=== PATIENT | female | born 1975 | race Caucasian/White ===

== ENCOUNTER 2018-06-20 20:57 | Emergency (ER) | payer SELFPAY ==
[2018-06-20 21:09] VITALS: BP 137/90; PULSE 84; RESP 18; TEMP 37.3; O2SAT 97; BMI 36.9
--- NOTE | 2018-06-20 22:14 | ED.ABDPAIN ---
HPI - Abdominal Pain General Chief Complaint: Abdominal Pain Stated Complaint: sharp right side abdominal pain Time Seen by Provider: 06/20/18 21:35 Source: patient Mode of arrival: ambulatory Limitations: no limitations History of Present Illness HPI narrative: 43-year-old female nonsmoker presents with a chief complaint of right lower quadrant pain worsening over the course of the day. It started off rather mild and became quite severe as the day progressed. She has had nausea but denies any vomiting. She denies any fever or chills. Her pain is worse with motion and improves with rest. Patient denies the vaginal bleeding or discharge. She denies any radiation of the pain MD complaint: abdominal pain Onset (ago): hour(s) Pain Consistency: constant Location: RLQ Severity: moderate Quality: cramping and aching Radiation: none Migration to: no migration Relieving factors: rest Exacerbating factors: movement Associated symptoms: nausea Treatments prior to arrival: NSAIDs Related Data Home Medications Medication Instructions Recorded Confirmed zolpidem #0 06/18/17 Previous Rx's Medication Instructions Recorded codeine-guaifenesin 5 ml PO QHS #60 ml 12/15/17 amoxicillin-pot clavulanate 875 mg PO BID 10 Days #0 tab 12/16/17 [Augmentin] prednisone 2 tab PO QDAY 5 Days #0 tab 12/16/17 hydrocodone-acetaminophen 1 tab PO Q4-6H PRN #14 tab 06/21/18 Allergies Allergy/AdvReac Type Severity Reaction Status Date / Time No Known Allergies Allergy Uncoded 01/05/18 12:28 Review of Systems Review of Systems All systems reviewed & are unremarkable except as noted in HPI and below Constitutional Denies chills, Denies fever(s), Denies lethargy and Denies weakness Eyes Denies change in vision, Denies eye discharge, Denies irritation and Denies loss of vision ENT Ears, Nose, Mouth, and Throat: Denies change in voice, Denies neck pain and Denies sore throat Cardiovascular Denies chest pain, Denies irregular heart rhythm, Denies lightheadedness, Denies palpitations, Denies dyspnea, Denies dyspnea on exertion and Denies orthopnea Respiratory Denies cough, Denies dyspnea, Denies dyspnea on exertion and Denies wheezing Gastrointestinal Gastrointestinal: Reports abdominal pain, Denies change in bowel habits, Denies diarrhea, Denies nausea and Denies vomiting Genitourinary Denies hematuria, Denies flank pain, Denies urinary incontinence and Denies urinary urgency Musculoskeletal Denies neck pain Integumentary/Breasts Denies pruritus, Denies erythema, Denies rash and Denies wounds Neurologic Denies confusion, Denies loss of vision and Denies weakness Psychiatric Denies anxiety, Denies confusion, Denies depression, Denies homicidal ideation and Denies suicidal ideation Endocrine Denies palpitations Hematologic/Lymphatic Denies easy bruising Allergic/Immunologic Denies wheezing [facility] Social History Smoking Status: Never smoker Exam Narrative Exam Narrative: 43-year-old female obviously uncomfortable, clutching her right lower abdomen Initial Vital Signs Initial Vital Signs: Vital Signs Temperature 99.1 F 06/20/18 21:09 Pulse Rate 84 06/20/18 21:09 Respiratory Rate 18 06/20/18 21:09 Blood Pressure 137/90 06/20/18 21:09 Pulse Oximetry 97 06/20/18 21:09 Const General: cooperative, well developed and in distress Nutritional Appearance: well nourished Orientation: alert, awake, oriented x3 and not confused HENMT Head: normocephalic and atraumatic Ears: external ears normal and TM's normal bilaterally Nose: external nose normal and No nasal discharge Face and sinus: sinuses nontender, face symmetric, no sinus tenderness and No dry mucous membranes Mouth: oral mucosae normal and moist mucous membranes Teeth and gingiva: dentition normal Throat: tonsils normal and uvula midline Eyes General: appearance normal, both eyes and all related structures Eyelids: eyelids normal Conjunctivae: conjunctivae normal Sclera: sclerae normal Pupils: PERRL EOM: EOM intact bilaterally Resp Effort & Inspection: normal respiratory effort, able to speak in complete sentences, no respiratory distress and no use of accessory muscles Auscultation: clear to auscultation bilaterally, no rales, no rhonchi and no wheezes GI Inspection: non-distended Palpation: soft, no hepatosplenomegaly, No guarding, No pulsatile mass and tender (Chief right lower quadrant tenderness) Auscultation: normal bowel sounds Back/Spine/Pelvis Back: No CVA tenderness Cervical Spine: cervical ROM normal and No pain with cervical ROM Thoracic/Lumbar Spine: thoracic and lumbar spine normal to inspection Skin General: no rashes or lesions noted, No jaundice and No petechiae Extrem General: full ROM, no clubbing, cyanosis or edema, no pedal edema and no calf tenderness Course Orders Ordered: Discontinued Medications Hydrocodone Bitart/Acetaminophen (Vicodin Prepack) 1 bottle MISC SEEINSTR ONE Stop: 06/21/18 01:57 Last Admin: 06/21/18 02:08 Dose: 1 bottle Hydromorphone HCl (Dilaudid) 0.5 mg IV NOW ONE Stop: 06/20/18 22:14 Last Admin: 06/20/18 22:36 Dose: 0.5 mg Hydromorphone HCl (Dilaudid) 0.5 mg IV NOW ONE Stop: 06/21/18 00:46 Last Admin: 06/21/18 00:54 Dose: 0.5 mg Sodium Chloride (Normal Saline 0.9%) 1,000 mls @ 150 mls/hr IV CONT EPIFANIO Last Infusion: 06/21/18 02:15 Dose: 0 mls/hr Admin: 06/20/18 22:35 Dose: 150 mls/hr Ondansetron HCl (Zofran) 4 mg IV NOW ONE Stop: 06/20/18 22:14 Last Admin: 06/20/18 22:36 Dose: 4 mg Ondansetron HCl (Zofran) 4 mg IV NOW ONE Stop: 06/21/18 00:59 Last Admin: 06/21/18 01:05 Dose: 4 mg Ondansetron HCl (Zofran Odt Prepack) 1 bottle MISC SEEINSTR ONE Stop: 06/21/18 01:57 Last Admin: 06/21/18 02:08 Dose: 1 bottle Reevaluation(s) Reevaluation #1: The patient is much more comfortable after above-stated medications Vital Signs - 8 hr 06/20/18 21:09 Temperature 99.1 F Pulse Rate 84 Respiratory Rate 18 Blood Pressure 137/90 Pulse Oximetry 97 MDM - Abdominal Pain Differential Diagnosis Differential diagnosis: Likely abdominal pain, acute appendicitis, calculus of kidney, constipation, diverticulitis, pancreatitis and small bowel obstruction Medical Records Attestation: I reviewed the patient's medical records. Lab Data Attestation: I reviewed the patient's lab results. Result diagrams: 06/20/18 22:41 06/20/18 22:41 Lab Results 06/20/18 06/20/18 Range/Units 22:41 22:41 WBC 9.3 (4.5-11.0) X10^3/uL RBC 4.52 (4.0-5.2) X10^6/uL Hgb 13.8 (12.0-16.0) g/dL Hct 39.9 (36-46) % MCV 88.3 (80-100) fL MCH 30.5 (26-34) PG MCHC 34.5 (30-36) % RDW 13.0 (11.6-14.8) % Plt Count 238 (150-400) X10^3/uL Neut % (Auto) 61.9 (50-75) % Lymph % (Auto) 26.5 (25-40) % [place] % (Auto) 7.3 (3-14) % Eos % (Auto) 3.8 (2-4) % Baso % (Auto) 0.5 (0-2) % Neut # (Auto) 5800 (3309-7328) /uL Sodium 140 (137-145) mmol/L Potassium 3.8 (3.4-5.1) mmol/L Chloride 104 (98-107) mmol/L Carbon Dioxide 24 (22-32) mmol/L BUN 25 H (7-17) mg/dL Creatinine 0.90 (0.52-1.04) mg/dL Estimated GFR > 60.0 (>60) mL/min BUN/Creatinine Ratio 27.8 H (6-22) Glucose 101 H (70-100) mg/dL Calcium 9.1 (8.4-10.2) mg/dL Total Bilirubin 0.5 (0.2-1.3) mg/dL AST 17 (14-36) IU/L ALT 32 (9-52) IU/L Alkaline Phosphatase 68 (38-126) U/L Total Protein 7.2 (6.3-8.2) g/dL Albumin 4.2 (3.5-5.0) g/dL Globulin 3.0 (1.7-4.1) g/dL Albumin/Globulin Ratio 1.4 (1.0-2.8) Lipase 61 (23-300) U/L Point of care testing: Point of Care Testing Test Results Negative Urine Dip Bedside Urine Glucose Negative Bedside Urine Bilirubin - Negative Bedside Urine Ketone - Negative Urine Specific [place] 1.025 Bedside Urine Occult Blood - Negative Bedside Urine pH 6.0 Bedside Urine Protein - Negative Bedside Urine Urobilinogen +/- 1mg Bedside Urine Nitrite - Negative Bedside Urine Leukocytes - Negative Esterase Imaging Data CT scan - abdomen: Radiologist's impression: [address] [address] [address] Scan Report Signed Patient: Amparo Monreal EMR#: [id number] : 1975Acct:[id number] Age/Sex: 43 / FDate of Service: 06/20/18 Loc: ED Accession Number: [id number] Procedure: CT abdomen pelvis w con Ordering Provider: Harley Marcelino D.O. PROCEDURE: CT ABDOMEN PELVIS W CON INDICATIONS: severe right lower quadrant pain TECHNIQUE: After the administration of intravenous contrast, 5 mm thick sections acquired from the diaphragm to the symphysis. 5 mm coronal and sagittal reformats were acquired. For radiation dose reduction, the following was used: automated exposure control, adjustment of mA and/or kV according to patient size. COMPARISON: [facility], CT, ABDOMEN/PELVIS WITH CONTRAST, 06/19/2017, 2:06. FINDINGS: Image quality: Excellent. ABDOMEN: Lung bases: Lung bases are clear. Heart size is normal. Solid organs: Diffuse hepatic fatty infiltration. Liver is normal in size and enhancement. Gallbladder is surgically absent. Biliary system is non dilated. Pancreas enhances normally. Spleen is at the upper limits of normal in size. No adrenal nodules. Kidneys demonstrate normal size and enhancement, without hydronephrosis. Peritoneum and bowel: Bowel loops demonstrate normal wall thickness and caliber. The appendix is not identified. No secondary signs for acute appendicitis. No free fluid or air. Nodes and vessels: No retroperitoneal or mesenteric adenopathy by size criteria. Aorta and inferior vena cava are normal in size. Miscellaneous: No ventral hernias. PELVIS: Genitourinary: Bladder wall thickness is normal. Uterus is normal. No adnexal mass. No pathological free fluid in pelvis. Miscellaneous: No inguinal hernias or adenopathy. Bones: No suspicious bony lesions. No vertebral body compression fractures. IMPRESSION: 1. No CT findings for severe right lower quadrant pain identified on CT. The appendix is not visualized. No secondary signs for acute appendicitis. 2. Hepatic steatosis. No significant discrepancy with the shift supervisor melting radiology preliminary report. Dictated by: Colette Molina M.D. on 06/21/2018 at 7:29 Approved by: Colette Molina M.D. on 06/21/2018 at 7:34 US - abdomen: Radiologist's impression: [address] [address] Ultrasound Report Signed Patient: Amparo Monreal EMR#: [id number] : 1975Acct:[id number] Age/Sex: 43 / FDate of Service: 06/21/18 Loc: ED Accession Number: [id number] Procedure: US pelvic complete Ordering Provider: Harley Marcelino D.O. PROCEDURE: US PELVIC COMPLETE INDICATIONS: PAIN TECHNIQUE: Real-time scanning was performed of the pelvic organs, with image documentation. Additional endovaginal scanning was necessary due to incomplete visualization of the adnexal and endometrial structures by transabdominal scanning. COMPARISON: None. FINDINGS: Transabdominal scanning: Limited scanning through the kidneys shows no hydronephrosis. No pathologic free abdominal or pelvic fluid. Endovaginal scanning: Uterus: Uterus is normal in size at 7.9 x 3.9 x 3.5 cm. The endometrium measures 5.4 mm in combined thickness. Ovaries: Right adnexa measures 2.1 x 1.2 x 2.0 cm. The left adnexa measures 2.1 x 1.7 x 1.5 cm adnexa are sonographically normal. IMPRESSION: Uterus and adnexa are sonographically normal. Dictated by: Merissa Nguyen MD, PhD on 06/21/2018 at 9:49 Approved by: Merissa Nguyen MD, PhD on 06/21/2018 at 9:55 MDM Narrative Medical decision making narrative: Appendicitis considered but thought less likely given lack of fever, white count with she and no CT findings. ovarian torsion or abscess considered but thought less likely in the setting of normal images Kidney stone or renal colic considered but thought less likely given lack of findings on imaging Discharge Plan Departure Patient Disposition: Home Clinical Impression: Abdominal pain, acute, right lower quadrant Discharge Date/Time: 06/21/18 02:15 Interventions: ED Discharge Assessment Last Done: 06/21/18 02:13 Instructions: DI for Pelvic Pain Activity Restrictions/Additional Instructions: *You have been diagnosed with [ right lower quadrant pain ] *What to do: *Take medications as directed *Follow up with your primary care provider in 2-3 days, call for an appointment. Let them know you were seen in the Emergency Department and that we ask that you be seen in follow up * CT scan was negative for appendicitis, kidney stone, or other emergent/surgical problem *Return to ER if you should have any new, worsening or concerning symptoms Prescriptions: New hydrocodone-acetaminophen 5-325 mg tablet 1 tab PO Q4-6H PRN (Reason: pain) Qty: 14 RF: 0 No Action zolpidem 5 MG tablet Qty: 0 RF: 0 codeine-guaifenesin 100 MG/10 MG liquid 5 ml PO QHS Qty: 60 RF: 0 prednisone 20 MG tablet 2 tab PO QDAY 5 Days Qty: 0 RF: 0 amoxicillin-pot clavulanate [Augmentin] 875 MG/125 MG tablet 875 mg PO BID 10 Days Qty: 0 RF: 0 Referrals: Carmella Clark PA-C [Primary Care Provider] -
[2018-06-20] MEDS: SODIUM CHLORIDE 0.9% 1,000 ML 150 ML IV (22:35)
[2018-06-20] MEDS: ONDANSETRON 4 MG/2 ML INJ IV (22:36)
[2018-06-20] MEDS: HYDROMORPHONE 1 MG INJ 0.5 MG IV (22:36)
[2018-06-20 22:50] LABS: Add Manual Diff / Slide Review NO; Basophils Percent Auto 0.5 % (0-2); Eosinophils Percent Auto 3.8 % (2-4); Hematocrit 39.9 % (36-46); Hemoglobin 13.8 g/dL (12.0-16.0); Lymphocytes Percent Auto 26.5 % (25-40); Mean Corpuscular HGB Conc 34.5 % (30-36); Mean Corpuscular Hemoglobin 30.5 PG (26-34); Mean Corpuscular Volume 88.3 fL (80-100); Monocytes Percent Auto 7.3 % (3-14); Neutrophils Absolute Auto 5800 /uL (3000-5900); Neutrophils Percent Auto 61.9 % (50-75); Platelet Count 238 X10^3/uL (150-400); Red Blood Cell Count 4.52 X10^6/uL (4.0-5.2); White Blood Cell Count 9.3 X10^3/uL (4.5-11.0)
[2018-06-20 23:02] VITALS: BP 126/56; PULSE 82; RESP 15; O2SAT 96
[2018-06-20 23:02] LABS: Alanine Aminotransferase 32 IU/L (9-52); Albumin 4.2 g/dL (3.5-5.0); Albumin Globulin Ratio 1.4 (1.0-2.8); Alkaline Phosphatase 68 U/L (38-126); Aspartate Aminotransferase 17 IU/L (14-36); BUN Creatinine Ratio 27.8 (6-22); Bilirubin Total 0.5 mg/dL (0.2-1.3); Blood Urea Nitrogen 25 mg/dL (7-17); Calcium 9.1 mg/dL (8.4-10.2); Carbon Dioxide 24 mmol/L (22-32); Chloride 104 mmol/L (98-107); Estimated Glomerular Filt Rate > 60.0 mL/min (>60); Glucose 101 mg/dL (70-100); HEMOLYSIS < 15 (0-50); Lipase 61 U/L (23-300); Potassium 3.8 mmol/L (3.4-5.1); Sodium 140 mmol/L (137-145); Total Protein 7.2 g/dL (6.3-8.2)
--- NOTE | 2018-06-20 23:02 | DI.CT.S_ITS ---
PROCEDURE: CT ABDOMEN PELVIS W CON INDICATIONS: severe right lower quadrant pain TECHNIQUE: After the administration of intravenous contrast, 5 mm thick sections acquired from the diaphragm to the symphysis. 5 mm coronal and sagittal reformats were acquired. For radiation dose reduction, the following was used: automated exposure control, adjustment of mA and/or kV according to patient size. COMPARISON: [facility], CT, ABDOMEN/PELVIS WITH CONTRAST, 06/19/2017, 2:06. FINDINGS: Image quality: Excellent. ABDOMEN: Lung bases: Lung bases are clear. Heart size is normal. Solid organs: Diffuse hepatic fatty infiltration. Liver is normal in size and enhancement. Gallbladder is surgically absent. Biliary system is non dilated. Pancreas enhances normally. Spleen is at the upper limits of normal in size. No adrenal nodules. Kidneys demonstrate normal size and enhancement, without hydronephrosis. Peritoneum and bowel: Bowel loops demonstrate normal wall thickness and caliber. The appendix is not identified. No secondary signs for acute appendicitis. No free fluid or air. Nodes and vessels: No retroperitoneal or mesenteric adenopathy by size criteria. Aorta and inferior vena cava are normal in size. Miscellaneous: No ventral hernias. PELVIS: Genitourinary: Bladder wall thickness is normal. Uterus is normal. No adnexal mass. No pathological free fluid in pelvis. Miscellaneous: No inguinal hernias or adenopathy. Bones: No suspicious bony lesions. No vertebral body compression fractures. IMPRESSION: 1. No CT findings for severe right lower quadrant pain identified on CT. The appendix is not visualized. No secondary signs for acute appendicitis. 2. Hepatic steatosis. No significant discrepancy with the streaming media specialist radiology preliminary report. Dictated by: Colette Molina M.D. on 06/21/2018 at 7:29 Approved by: Colette Molina M.D. on 06/21/2018 at 7:34
[2018-06-21 00:26] VITALS: BP 110/61; PULSE 77; RESP 15; O2SAT 93
--- NOTE | 2018-06-21 00:44 | DI.US.S_ITS ---
PROCEDURE: US PELVIC COMPLETE INDICATIONS: PAIN TECHNIQUE: Real-time scanning was performed of the pelvic organs, with image documentation. Additional endovaginal scanning was necessary due to incomplete visualization of the adnexal and endometrial structures by transabdominal scanning. COMPARISON: None. FINDINGS: Transabdominal scanning: Limited scanning through the kidneys shows no hydronephrosis. No pathologic free abdominal or pelvic fluid. Endovaginal scanning: Uterus: Uterus is normal in size at 7.9 x 3.9 x 3.5 cm. The endometrium measures 5.4 mm in combined thickness. Ovaries: Right adnexa measures 2.1 x 1.2 x 2.0 cm. The left adnexa measures 2.1 x 1.7 x 1.5 cm adnexa are sonographically normal. IMPRESSION: Uterus and adnexa are sonographically normal. Dictated by: Merissa Nguyen MD, PhD on 06/21/2018 at 9:49 Approved by: Merissa Nguyen MD, PhD on 06/21/2018 at 9:55
[2018-06-21] MEDS: HYDROMORPHONE 1 MG INJ 0.5 MG IV (00:54)
[2018-06-21] MEDS: ONDANSETRON 4 MG/2 ML INJ IV (01:05)
[2018-06-21 01:24] VITALS: BP 112/70; PULSE 81; RESP 19; O2SAT 94
[2018-06-21] MEDS: HYDROCODONE/ACET 5/325 PREPACK 1 BOTTLE MISC (02:08)
[2018-06-21] MEDS: ONDANSETRON 4 MG ODT PREPACK 1 BOTTLE MISC (02:08)
[2018-06-21 02:13] VITALS: BP 110/72; PULSE 85; RESP 18; O2SAT 96
--- NOTE | 2018-06-22 03:08 | ED_ITS ---
HPI - Abdominal Pain General Chief Complaint: Abdominal Pain Stated Complaint: sharp right side abdominal pain Time Seen by Provider: 06/20/18 21:35 Source: patient Mode of arrival: ambulatory Limitations: no limitations History of Present Illness HPI narrative: 43-year-old female nonsmoker presents with a chief complaint of right lower quadrant pain worsening over the course of the day. It started off rather mild and became quite severe as the day progressed. She has had nausea but denies any vomiting. She denies any fever or chills. Her pain is worse with motion and improves with rest. Patient denies the vaginal bleeding or discharge. She denies any radiation of the pain MD complaint: abdominal pain Onset (ago): hour(s) Pain Consistency: constant Location: RLQ Severity: moderate Quality: cramping and aching Radiation: none Migration to: no migration Relieving factors: rest Exacerbating factors: movement Associated symptoms: nausea Treatments prior to arrival: NSAIDs Related Data Home Medications Medication Instructions Recorded Confirmed zolpidem #0 06/18/17 Previous Rx's Medication Instructions Recorded codeine-guaifenesin 5 ml PO QHS #60 ml 12/15/17 amoxicillin-pot clavulanate 875 mg PO BID 10 Days #0 tab 12/16/17 [Augmentin] prednisone 2 tab PO QDAY 5 Days #0 tab 12/16/17 hydrocodone-acetaminophen 1 tab PO Q4-6H PRN #14 tab 06/21/18 Allergies Allergy/AdvReac Type Severity Reaction Status Date / Time No Known Allergies Allergy Uncoded 01/05/18 12:28 Review of Systems Review of Systems All systems reviewed & are unremarkable except as noted in HPI and below Constitutional Denies chills, Denies fever(s), Denies lethargy and Denies weakness Eyes Denies change in vision, Denies eye discharge, Denies irritation and Denies loss of vision ENT Ears, Nose, Mouth, and Throat: Denies change in voice, Denies neck pain and Denies sore throat Cardiovascular Denies chest pain, Denies irregular heart rhythm, Denies lightheadedness, Denies palpitations, Denies dyspnea, Denies dyspnea on exertion and Denies orthopnea Respiratory Denies cough, Denies dyspnea, Denies dyspnea on exertion and Denies wheezing Gastrointestinal Gastrointestinal: Reports abdominal pain, Denies change in bowel habits, Denies diarrhea, Denies nausea and Denies vomiting Genitourinary Denies hematuria, Denies flank pain, Denies urinary incontinence and Denies urinary urgency Musculoskeletal Denies neck pain Integumentary/Breasts Denies pruritus, Denies erythema, Denies rash and Denies wounds Neurologic Denies confusion, Denies loss of vision and Denies weakness Psychiatric Denies anxiety, Denies confusion, Denies depression, Denies homicidal ideation and Denies suicidal ideation Endocrine Denies palpitations Hematologic/Lymphatic Denies easy bruising Allergic/Immunologic Denies wheezing [facility] Social History Smoking Status: Never smoker Exam Narrative Exam Narrative: 43-year-old female obviously uncomfortable, clutching her right lower abdomen Initial Vital Signs Initial Vital Signs: Vital Signs Temperature 99.1 F 06/20/18 21:09 Pulse Rate 84 06/20/18 21:09 Respiratory Rate 18 06/20/18 21:09 Blood Pressure 137/90 06/20/18 21:09 Pulse Oximetry 97 06/20/18 21:09 Const General: cooperative, well developed and in distress Nutritional Appearance: well nourished Orientation: alert, awake, oriented x3 and not confused HENMT Head: normocephalic and atraumatic Ears: external ears normal and TM's normal bilaterally Nose: external nose normal and No nasal discharge Face and sinus: sinuses nontender, face symmetric, no sinus tenderness and No dry mucous membranes Mouth: oral mucosae normal and moist mucous membranes Teeth and gingiva: dentition normal Throat: tonsils normal and uvula midline Eyes General: appearance normal, both eyes and all related structures Eyelids: eyelids normal Conjunctivae: conjunctivae normal Sclera: sclerae normal Pupils: PERRL EOM: EOM intact bilaterally Resp Effort & Inspection: normal respiratory effort, able to speak in complete sentences, no respiratory distress and no use of accessory muscles Auscultation: clear to auscultation bilaterally, no rales, no rhonchi and no wheezes GI Inspection: non-distended Palpation: soft, no hepatosplenomegaly, No guarding, No pulsatile mass and tender (Chief right lower quadrant tenderness) Auscultation: normal bowel sounds Back/Spine/Pelvis Back: No CVA tenderness Cervical Spine: cervical ROM normal and No pain with cervical ROM Thoracic/Lumbar Spine: thoracic and lumbar spine normal to inspection Skin General: no rashes or lesions noted, No jaundice and No petechiae Extrem General: full ROM, no clubbing, cyanosis or edema, no pedal edema and no calf tenderness Course Orders Ordered: Discontinued Medications Hydrocodone Bitart/Acetaminophen (Vicodin Prepack) 1 bottle MISC SEEINSTR ONE Stop: 06/21/18 01:57 Last Admin: 06/21/18 02:08 Dose: 1 bottle Hydromorphone HCl (Dilaudid) 0.5 mg IV NOW ONE Stop: 06/20/18 22:14 Last Admin: 06/20/18 22:36 Dose: 0.5 mg Hydromorphone HCl (Dilaudid) 0.5 mg IV NOW ONE Stop: 06/21/18 00:46 Last Admin: 06/21/18 00:54 Dose: 0.5 mg Sodium Chloride (Normal Saline 0.9%) 1,000 mls @ 150 mls/hr IV CONT EPIFANIO Last Infusion: 06/21/18 02:15 Dose: 0 mls/hr Admin: 06/20/18 22:35 Dose: 150 mls/hr Ondansetron HCl (Zofran) 4 mg IV NOW ONE Stop: 06/20/18 22:14 Last Admin: 06/20/18 22:36 Dose: 4 mg Ondansetron HCl (Zofran) 4 mg IV NOW ONE Stop: 06/21/18 00:59 Last Admin: 06/21/18 01:05 Dose: 4 mg Ondansetron HCl (Zofran Odt Prepack) 1 bottle MISC SEEINSTR ONE Stop: 06/21/18 01:57 Last Admin: 06/21/18 02:08 Dose: 1 bottle Reevaluation(s) Reevaluation #1: The patient is much more comfortable after above-stated medications Vital Signs - 8 hr 06/20/18 21:09 Temperature 99.1 F Pulse Rate 84 Respiratory Rate 18 Blood Pressure 137/90 Pulse Oximetry 97 MDM - Abdominal Pain Differential Diagnosis Differential diagnosis: Likely abdominal pain, acute appendicitis, calculus of kidney, constipation, diverticulitis, pancreatitis and small bowel obstruction Medical Records Attestation: I reviewed the patient's medical records. Lab Data Attestation: I reviewed the patient's lab results. Result diagrams: 06/20/18 22:41 06/20/18 22:41 Lab Results 06/20/18 06/20/18 Range/Units 22:41 22:41 WBC 9.3 (4.5-11.0) X10^3/uL RBC 4.52 (4.0-5.2) X10^6/uL Hgb 13.8 (12.0-16.0) g/dL Hct 39.9 (36-46) % MCV 88.3 (80-100) fL MCH 30.5 (26-34) PG MCHC 34.5 (30-36) % RDW 13.0 (11.6-14.8) % Plt Count 238 (150-400) X10^3/uL Neut % (Auto) 61.9 (50-75) % Lymph % (Auto) 26.5 (25-40) % K[place]haw % (Auto) 7.3 (3-14) % Eos % (Auto) 3.8 (2-4) % Baso % (Auto) 0.5 (0-2) % Neut # (Auto) 5800 (8011-4694) /uL Sodium 140 (137-145) mmol/L Potassium 3.8 (3.4-5.1) mmol/L Chloride 104 (98-107) mmol/L Carbon Dioxide 24 (22-32) mmol/L BUN 25 H (7-17) mg/dL Creatinine 0.90 (0.52-1.04) mg/dL Estimated GFR > 60.0 (>60) mL/min BUN/Creatinine Ratio 27.8 H (6-22) Glucose 101 H (70-100) mg/dL Calcium 9.1 (8.4-10.2) mg/dL Total Bilirubin 0.5 (0.2-1.3) mg/dL AST 17 (14-36) IU/L ALT 32 (9-52) IU/L Alkaline Phosphatase 68 (38-126) U/L Total Protein 7.2 (6.3-8.2) g/dL Albumin 4.2 (3.5-5.0) g/dL Globulin 3.0 (1.7-4.1) g/dL Albumin/Globulin Ratio 1.4 (1.0-2.8) Lipase 61 (23-300) U/L Point of care testing: Point of Care Testing Test Results Negative Urine Dip Bedside Urine Glucose Negative Bedside Urine Bilirubin - Negative Bedside Urine Ketone - Negative Urine Specific Elysian 1.025 Bedside Urine Occult Blood - Negative Bedside Urine pH 6.0 Bedside Urine Protein - Negative Bedside Urine Urobilinogen +/- 1mg Bedside Urine Nitrite - Negative Bedside Urine Leukocytes - Negative Esterase Imaging Data CT scan - abdomen: Radiologist's impression: [address] [address] [address] Scan Report Signed Patient: Amparo Monreal EMR#: [id number] : 1975Acct:[id number] Age/Sex: 43 / FDate of Service: 06/20/18 Loc: ED Accession Number: [id number] Procedure: CT abdomen pelvis w con Ordering Provider: Harley Marcelino D.O. PROCEDURE: CT ABDOMEN PELVIS W CON INDICATIONS: severe right lower quadrant pain TECHNIQUE: After the administration of intravenous contrast, 5 mm thick sections acquired from the diaphragm to the symphysis. 5 mm coronal and sagittal reformats were acquired. For radiation dose reduction, the following was used: automated exposure control, adjustment of mA and/or kV according to patient size. COMPARISON: [facility], CT, ABDOMEN/PELVIS WITH CONTRAST, 06/19/2017, 2:06. FINDINGS: Image quality: Excellent. ABDOMEN: Lung bases: Lung bases are clear. Heart size is normal. Solid organs: Diffuse hepatic fatty infiltration. Liver is normal in size and enhancement. Gallbladder is surgically absent. Biliary system is non dilated. Pancreas enhances normally. Spleen is at the upper limits of normal in size. No adrenal nodules. Kidneys demonstrate normal size and enhancement, without hydronephrosis. Peritoneum and bowel: Bowel loops demonstrate normal wall thickness and caliber. The appendix is not identified. No secondary signs for acute appendicitis. No free fluid or air. Nodes and vessels: No retroperitoneal or mesenteric adenopathy by size criteria. Aorta and inferior vena cava are normal in size. Miscellaneous: No ventral hernias. PELVIS: Genitourinary: Bladder wall thickness is normal. Uterus is normal. No adnexal mass. No pathological free fluid in pelvis. Miscellaneous: No inguinal hernias or adenopathy. Bones: No suspicious bony lesions. No vertebral body compression fractures. IMPRESSION: 1. No CT findings for severe right lower quadrant pain identified on CT. The appendix is not visualized. No secondary signs for acute appendicitis. 2. Hepatic steatosis. No significant discrepancy with the date night sitter radiology preliminary report. Dictated by: Colette Molina M.D. on 06/21/2018 at 7:29 Approved by: Colette Molina M.D. on 06/21/2018 at 7:34 US - abdomen: Radiologist's impression: [address] [address] Ultrasound Report Signed Patient: Amparo Monreal EMR#: [id number] : 1975Acct:[id number] Age/Sex: 43 / FDate of Service: 06/21/18 Loc: ED Accession Number: [id number] Procedure: US pelvic complete Ordering Provider: Harley Marcelino D.O. PROCEDURE: US PELVIC COMPLETE INDICATIONS: PAIN TECHNIQUE: Real-time scanning was performed of the pelvic organs, with image documentation. Additional endovaginal scanning was necessary due to incomplete visualization of the adnexal and endometrial structures by transabdominal scanning. COMPARISON: None. FINDINGS: Transabdominal scanning: Limited scanning through the kidneys shows no hydronephrosis. No pathologic free abdominal or pelvic fluid. Endovaginal scanning: Uterus: Uterus is normal in size at 7.9 x 3.9 x 3.5 cm. The endometrium measures 5.4 mm in combined thickness. Ovaries: Right adnexa measures 2.1 x 1.2 x 2.0 cm. The left adnexa measures 2.1 x 1.7 x 1.5 cm adnexa are sonographically normal. IMPRESSION: Uterus and adnexa are sonographically normal. Dictated by: Merissa Nguyen MD, PhD on 06/21/2018 at 9:49 Approved by: Merissa Nguyen MD, PhD on 06/21/2018 at 9:55 MDM Narrative Medical decision making narrative: Appendicitis considered but thought less likely given lack of fever, white count with she and no CT findings. ovarian torsion or abscess considered but thought less likely in the setting of normal images Kidney stone or renal colic considered but thought less likely given lack of findings on imaging Discharge Plan Departure Patient Disposition: Home Clinical Impression: Abdominal pain, acute, right lower quadrant Discharge Date/Time: 06/21/18 02:15 Interventions: ED Discharge Assessment Last Done: 06/21/18 02:13 Instructions: DI for Pelvic Pain Activity Restrictions/Additional Instructions: *You have been diagnosed with [ right lower quadrant pain ] *What to do: *Take medications as directed *Follow up with your primary care provider in 2-3 days, call for an appointment. Let them know you were seen in the Emergency Department and that we ask that you be seen in follow up * CT scan was negative for appendicitis, kidney stone, or other emergent/ surgical problem *Return to ER if you should have any new, worsening or concerning symptoms Prescriptions: New hydrocodone-acetaminophen 5-325 mg tablet 1 tab PO Q4-6H PRN (Reason: pain) Qty: 14 RF: 0 No Action zolpidem 5 MG tablet Qty: 0 RF: 0 codeine-guaifenesin 100 MG/10 MG liquid 5 ml PO QHS Qty: 60 RF: 0 prednisone 20 MG tablet 2 tab PO QDAY 5 Days Qty: 0 RF: 0 amoxicillin-pot clavulanate [Augmentin] 875 MG/125 MG tablet 875 mg PO BID 10 Days Qty: 0 RF: 0 Referrals: Carmella Clark PA-C [Primary Care Provider] -
== END 2018-06-21 02:15 | disposition home or self-care (01) ==
PROVIDERS: Emergency Provider Emergency Medicine; Family Provider Physician Assistant; PCP Physician Assistant
DX: R10.31 Right lower quadrant pain (principal)
CPT/HCPCS: 36591; 74177; 76830; 76856; 80053; 81003; 81025; 83690; 85025; 96361; 96374; 96375; 96376; 99283; 99285; J1170; J2405; Q9967

== ENCOUNTER → 2018-10-02 11:38 | Outpatient (CLI) | payer OTHER, SELFPAY ==
[2018-10-02 12:08] LABS: Strep Grp A by PCR Rapid Negative
== END ==
PROVIDERS: Family Provider Physician Assistant; PCP Physician Assistant; Visit Provider Physician Assistant
DX: J02.9 Acute pharyngitis, unspecified (principal)
CPT/HCPCS: 87070; 87077; 87147; 87651

== ENCOUNTER → 2018-10-20 08:57 | Outpatient (CLI) | payer OTHER, SELFPAY ==
[2018-10-20 10:32] LABS: Prolactin 4.9 ng/mL (3.0-18.6)
[2018-10-20 10:40] LABS: Pregnancy Test Serum,Qual Negative (Negative)
[2018-10-20 10:46] LABS: TSH w/ Reflex to FT4 1.21 uIU/mL (0.47-4.68)
== END ==
PROVIDERS: Family Provider Physician Assistant; PCP Physician Assistant; Visit Provider Specialist
DX: N91.2 Amenorrhea, unspecified (principal)
CPT/HCPCS: 36415; 83001; 84146; 84443; 84703

== ENCOUNTER → 2019-01-03 08:22 | Outpatient (CLI) | payer OTHER, SELFPAY ==
--- NOTE | 2019-01-03 08:24 | DI.RAD.S_ITS ---
PROCEDURE: XR WRIST RT MIN 3V INDICATIONS: right wrist pain TECHNIQUE: 4 views of the wrist were acquired. COMPARISON: [facility], CR, XR HAND RT MIN 3V, 01/03/2019, 8:27. FINDINGS: Bones: No fractures or dislocations. No suspicious bony lesions. Scaphoid view: No trauma. Soft tissues: No suspicious soft tissue calcifications. IMPRESSION: Source of pain is not seen. Dictated by: Daniel Torre M.D. on 01/03/2019 at 8:49 Approved by: Daniel Torre M.D. on 01/03/2019 at 8:50
--- NOTE | 2019-01-03 08:24 | DI.RAD.S_ITS ---
PROCEDURE: XR HAND RT MIN 3V INDICATIONS: right hand pain TECHNIQUE: 3 views of the hand(s) acquired. COMPARISON: [facility], HAND 3V LEFT, 12/02/2017, 15:57. [facility], HAND 3V RIGHT, 05/16/2014, 14:33. FINDINGS: Bones: No fractures or dislocations. Carpal bones are normally aligned. No suspicious bony lesions. Soft tissues: No suspicious soft tissue calcifications. IMPRESSION: Source of pain is not found. Dictated by: Daniel Torre M.D. on 01/03/2019 at 8:42 Approved by: Daniel Torre M.D. on 01/03/2019 at 8:49
== END ==
PROVIDERS: Family Provider Physician Assistant; PCP Physician Assistant; Visit Provider Physician Assistant
DX: M25.531 Pain in right wrist (principal); M79.641 Pain in right hand
CPT/HCPCS: 73110; 73130

== ENCOUNTER → 2020-10-03 09:47 | Outpatient (CLI) | payer BC, SELFPAY ==
[2020-10-03 10:27] LABS: COVID19 -Nasal RAPID Negative (Negative)
== END ==
PROVIDERS: Family Provider Physician Assistant; PCP Family Medicine; Visit Provider Nurse Practitioner Family
DX: Z20.822 Contact with and (suspected) exposure to COVID-19 (principal)
CPT/HCPCS: 87635

== ENCOUNTER → 2020-10-03 10:10 | Outpatient (CLI) | payer BC, SELFPAY ==
--- NOTE | 2020-10-03 10:11 | DI.RAD.S_ITS ---
PROCEDURE: XR CHEST 2V INDICATIONS: productive cough, wheezing, asthma TECHNIQUE: 2 views of the chest were acquired. COMPARISON: None. FINDINGS: Surgical changes and devices: None. Lungs and pleura: Lungs are clear. No pleural effusions or pneumothorax. Mediastinum: Mediastinal contours are normal. Heart size is normal. Bones and chest wall: No suspicious bony abnormalities. Soft tissues appear unremarkable. IMPRESSION: No acute cardiopulmonary abnormality. Dictated by: Kian Shaffer M.D. on 10/03/2020 at 10:19 Approved by: Kian Shaffer M.D. on 10/03/2020 at 10:21
== END ==
PROVIDERS: Family Provider Physician Assistant; PCP Family Medicine; Referring Provider Nurse Practitioner Family; Visit Provider Nurse Practitioner Family
DX: J18.9 Pneumonia, unspecified organism (principal); R05 Cough; J45.909 Unspecified asthma, uncomplicated; Z20.822 Contact with and (suspected) exposure to COVID-19
CPT/HCPCS: 71046; 87635

== ENCOUNTER → 2021-04-01 16:16 | Outpatient (CLI) | payer OTHER, SELFPAY ==
--- NOTE | 2021-04-01 16:17 | DI.RAD.S_ITS ---
PROCEDURE: XR CHEST 2V INDICATIONS: asthma; frequent coughs TECHNIQUE: 2 views of the chest were acquired. COMPARISON: [facility], , XR CHEST 2V, 10/03/2020, 10:12. FINDINGS: Surgical changes and devices: None. Lungs and pleura: Lungs are clear. No pleural effusions or pneumothorax. Mediastinum: Mediastinal contours are normal. Heart size is normal. Bones and chest wall: No suspicious bony abnormalities. Soft tissues appear unremarkable. IMPRESSION: No acute cardiopulmonary disease. Dictated by: Viviana Pickering M.D. on 04/01/2021 at 16:57 Approved by: Viviana Pickering M.D. on 04/01/2021 at 16:58
[2021-04-01 18:19] LABS: Alanine Aminotransferase 30 IU/L (<35); Albumin 4.3 g/dL (3.5-5.0); Albumin Globulin Ratio 1.3 (1.0-2.8); Alkaline Phosphatase 74 U/L (38-126); Aspartate Aminotransferase 24 IU/L (14-36); BUN Creatinine Ratio 17.8 (6-22); Bilirubin Total 0.5 mg/dL (0.2-1.3); Blood Urea Nitrogen 13 mg/dL (7-17); Calcium 9.4 mg/dL (8.4-10.2); Carbon Dioxide 26 mmol/L (22-32); Chloride 105 mmol/L (98-107); Estimated Glomerular Filt Rate > 60.0 mL/min (>60); Globulin 3.2 g/dL (1.7-4.1); Glucose 95 mg/dL (70-100); HEMOLYSIS 17 (0-50); Lipase 53 U/L (23-300); Potassium 4.3 mmol/L (3.4-5.1); Sodium 138 mmol/L (137-145); Total Protein 7.5 g/dL (6.3-8.2)
[2021-04-01 18:48] LABS: Add Manual Diff / Slide Review NO; Basophils Absolute Auto 0 /uL (0-100); Basophils Percent Auto 0.4 % (0-2); Eosinophils Absolute Auto 400 /uL (0-450); Eosinophils Percent Auto 4.5 % (2-4); Hematocrit 41.6 % (36-46); Lymphocytes Absolute Auto 2000 /uL (1100-4500); Lymphocytes Percent Auto 20.7 % (25-40); Mean Corpuscular HGB Conc 33.5 % (30-36); Mean Corpuscular Hemoglobin 30.7 PG (26-34); Mean Corpuscular Volume 91.6 fL (80-100); Monocytes Absolute Auto 700 /uL (0-900); Neutrophils Absolute Auto 6700 /uL (1500-7000); Neutrophils Percent Auto 67.4 % (50-75); Platelet Count 257 X10^3/uL (150-400); Red Blood Cell Count 4.55 X10^6/uL (4.0-5.2); Red Cell Distribution Width 13.5 % (11.6-14.8); White Blood Cell Count 9.9 X10^3/uL (4.5-11.0)
[2021-04-01 18:49] LABS: INR 1.1 (0.9-1.3); Prothrombin Time 12.2 SECONDS (10.1-12.7)
== END ==
PROVIDERS: Family Provider Physician Assistant; PCP Family Medicine; Referring Provider Registered Nurse; Visit Provider Registered Nurse
DX: J45.909 Unspecified asthma, uncomplicated (principal); R05 Cough; R53.83 Other fatigue; T14.8XXA Other injury of unspecified body region, initial encounter; R11.0 Nausea
CPT/HCPCS: 36415; 71046; 80053; 83690; 84443; 85025; 85610

== ENCOUNTER → 2021-04-07 09:25 | Outpatient (CLI) | payer OTHER, SELFPAY ==
--- NOTE | 2021-04-07 09:26 | DI.US.S_ITS ---
PROCEDURE: US PELVIC COMPLETE INDICATIONS: vaginal spotting TECHNIQUE: Real-time scanning was performed of the pelvic organs, with image documentation. Additional endovaginal scanning was necessary due to incomplete visualization of the adnexal and endometrial structures by transabdominal scanning. COMPARISON: [facility], , US PELVIC COMPLETE, 06/21/2018, 1:23. FINDINGS: Uterus: The uterus is slightly enlarged measuring 10.3 x 4.6 x 5.3 cm. The endometrial stripe measures 16 mm. Small cystic foci can be seen along the endometrial stripe. No abnormal vascularity can be seen along the endometrial stripe. Ovaries: The right ovary measures a 1.7 x 1.7 x 2.1 cm. The left ovary measures 1.8 x 1.7 x 1.4 cm. The ovaries have a normal sonographic appearance. Less than 12 follicles can be seen involving each ovary. No adnexal masses are seen. Other: No pathologic free abdominal or pelvic fluid. IMPRESSION: The endometrial stripe measures 16 mm. A history of the last menstrual period 3 years previously is given. Therefore, if this patient is considered to be postmenopausal, this would be abnormally thickened and further evaluation would be recommended, beginning with endometrial sampling. However, if this patient is considered to be premenopausal, then this study is considered normal and no further evaluation would be considered necessary. Dictated by: Anand Page M.D. on 04/07/2021 at 9:50 Approved by: Anand Page M.D. on 04/07/2021 at 9:53
== END ==
PROVIDERS: Family Provider Physician Assistant; PCP Family Medicine; Referring Provider Registered Nurse; Visit Provider Registered Nurse
DX: N93.9 Abnormal uterine and vaginal bleeding, unspecified (principal)
CPT/HCPCS: 76856

== ENCOUNTER → 2021-04-12 15:40 | Outpatient (CLI) | payer OTHER, SELFPAY ==
--- NOTE | 2021-04-12 15:41 | DI.MG.S_ITS ---
BILATERAL DIGITAL SCREENING MAMMOGRAM 3D/2D WITH CAD: 04/12/2021 CLINICAL: Routine screening. Baseline exam. Baseline mammogram. No prior exams were available for comparison. The tissue of both breasts is predominantly fatty. Current study was also evaluated with a Computer Aided Detection (CAD) system. There is an enlarged lymph node in the left breast posterior depth superior region seen on the mediolateral oblique view only. No other significant masses, calcifications, or other findings are seen in either breast. IMPRESSION: INCOMPLETE: NEEDS ADDITIONAL IMAGING EVALUATION Enlarged left axillary lymph node in the left breast is indeterminate. Given the asymmetric appearance and strong family history of breast cancer on this baseline exam, a left axillary ultrasound is recommended. COVID-19 vaccine was several months ago in December. This exam was interpreted at Station ID: [id number]. NOTE: For mammograms, a report in lay terms will be sent to the patient. Approximately 15% of breast malignancies will not be visualized mammographically. In the management of a palpable breast mass, a negative mammogram must not discourage biopsy of a clinically suspicious lesion. Electronically Signed By: Pradip Mckenzie M.D. [facility] [place]/:04/14/2021 12:22:28 letter sent: Need Ultrasound ACR BI-RADS Category 0: Incomplete [id number]
== END ==
PROVIDERS: Family Provider Physician Assistant; PCP Family Medicine; Referring Provider Family Medicine; Visit Provider Family Medicine
DX: Z12.31 Encounter for screening mammogram for malignant neoplasm of breast (principal)
CPT/HCPCS: 77063; 77067

== ENCOUNTER → 2021-04-16 14:35 | Outpatient (CLI) | payer OTHER, SELFPAY ==
--- NOTE | 2021-04-16 14:36 | DI.US.S_ITS ---
ULTRASOUND OF LEFT BREAST AND AXILLA: 04/16/2021 CLINICAL: Follow up left axilla lymphadenopathy. Comparison is made to exam dated: 04/12/2021 [facility]. Color flow and real-time ultrasound of the left breast axilla were performed. Ramos scale images of the real-time examination were reviewed. There is a prominent oval lymph node with a circumscribed margin in the left axilla. There is uniform cortical thickening measuring 0.4 cm. This oval lymph node displays a normal fatty hilum. This correlates with mammography findings. These are not palpated by the patient. IMPRESSION: PROBABLY BENIGN Left axillary node with borderline cortical thickening. This is most likely related to prior COVID-19 vaccination. A follow-up left axillary ultrasound in 3 months is recommended. Exam findings were discussed with the patient. Patient is advised to monitor for significant change. Clinical follow-up as needed. This exam was interpreted at Station ID: [id number]. Electronically Signed By: Pradip Mckenzie M.D. [facility]/:04/16/2021 15:43:49 letter sent: Followup Recommended Ultrasound BI-RADS: 3 Probably benign
== END ==
PROVIDERS: Family Provider Physician Assistant; PCP Family Medicine; Referring Provider Registered Nurse; Visit Provider Registered Nurse
DX: R92.8 Other abnormal and inconclusive findings on diagnostic imaging of breast (principal)
CPT/HCPCS: 76882

== ENCOUNTER → 2021-05-22 10:12 | Outpatient (CLI) | payer OTHER, SELFPAY ==
[2021-05-22 10:47] LABS: COVID19 -Nasal RAPID Negative (Negative)
== END ==
PROVIDERS: Family Provider Physician Assistant; PCP Family Medicine; Referring Provider Specialist; Visit Provider Specialist
DX: Z20.822 Contact with and (suspected) exposure to COVID-19 (principal); Z01.812 Encounter for preprocedural laboratory examination
CPT/HCPCS: 87635

== ENCOUNTER 2021-05-23 08:02 | Day surgery (SDC) | payer OTHER, SELFPAY ==
[2021-05-16 12:32] VITALS: BMI 43.5
[2021-05-23] VITALS (17 sets, daily range): BP systolic 106–145; BP diastolic 59–91; PULSE 80–993; RESP 8–20; TEMP 36.2–36.7; O2SAT 92–98; BMI 43.5
--- NOTE | 2021-05-23 | PATH_ITS ---
[facility] Accession Number: [id number] . 01 Material submitted: . uterus - UTERUS, BILATERRAL FALLOPIAN TUBES AND OVARIES . 02 Diagnosis: Uterus, Bilateral Fallopian Tubes and Ovaries, Laparoscopic-assisted Hysterectomy with Bilateral Salping-oophorectomy (Weight 137 grams): Cervix with parakeratosis; negative for dysplasia or malignancy. Mildly inflamed endocervix with prominent nabothian gland cysts; negative for glandular dysplasia or malignancy. Disordered proliferative endometrium; negative for glandular hyperplasia, cytologic atypia, or malignancy. Myometrium with no significant histomorphologic abnormality. Right ovary with a benign serous cystadenoma (19 mm). Left ovary with no significant histomorphologic abnormality. Right and left fallopian tubes with scattered benign paratubal cysts (approximately 1 mm); negative for atypia or malignancy. [facility] 05/26/2021 1444 Local . 02 Electronically signed: . Elham De La Rosa MD, Pathologist NPI- [id number] . 01 Gross description: . The specimen is received in formalin, labeled uterus and bilateral fallopian tubes and ovaries, and consists of a 137 g uterus, cervix, bilateral fallopian tubes and bilateral ovaries. The specimen measures 12.0 cm from superior fundus to cervix by 2.2 cm from cornu to cornu, by 5.0 cm from anterior to posterior. The serosa is mulligan-pink and smooth. The mulligan-pink to pink-purple, smooth to wrinkled ectocervix measures 3.2 x 2.6 cm, and there is a 1.5 x 0.4 cm os. The specimen is bivalved to reveal a mulligan-pink, herringbone endocervical mucosa. The endometrial cavity measures 5.0 x 2.9 cm and displays a mulligan-pink, focally hemorrhagic, and glistening polypoid endometrium measuring 0.9 cm in thickness. The myometrium is mulligan-pink and trabeculated, measuring 1.9 cm in thickness. The endometrial thickness is less than half of the myometrial thickness. The right ovary measures 3.5 x 3.0 x 2.0 cm. The external surface is mulligan and cerebriform, and there is a 1.9 x 1.8 x 1.5 cm, mulligan, serous-filled cyst with no capillary excrescences. The right fallopian tube measures 5.0 cm in length by 1.0 cm in diameter and displays a pink-purple, smooth serosa with a 0.1 cm paratubal cyst. Sectioning reveals a mulligan-pink mucosa and a stellate lumen measuring 0.4 cm in diameter. The left ovary measures 2.8 x 2.0 x 1.5 cm and displays a mulligan, cerebriform external surface. Sectioning reveals mulligan-pink cut surfaces with no masses or lesions identified. The left fallopian tube measures 5.0 cm in length by 0.6 cm in diameter and displays a mulligan-pink, smooth serosa with a 0.1 cm paratubal cyst. sectioning reveals a mulligan mucosa and a stellate lumen measuring 0.2 cm in diameter. [employer] sections are submitted. . A1: Anterior cervix and lower uterine segment (edge closest to endometrial cavity inked blue). A2: Posterior cervix and lower uterine segment (edge closest to endometrial cavity inked blue). A3-A4: Anterior uterus. A5-A6: Posterior uterus. A7: [employer] right ovary. A8: [employer] right fallopian tube, cross-sections and bisected fimbria. A9: [employer] left ovary. A10: [employer] left fallopian tube, central cross-sections and bisected fimbria. ([id number]) /R 05/24/2021 [facility]7 [facility] . 02 Pathologist provided ICD-10: N92.0, R10.2, N94.10 . 02 CPT . 088297 Performed at: [facility] [address] [id number] MD Lm Camarillo MD Phone: [phone] Performed at: 02 [facility] [id number] [place] [id number] MD Fya Woods MD Phone: [phone]
[2021-05-23] MEDS: LACTATED RINGERS 1,000 ML 100 ML IV ×4 (08:36→23:15)
--- NOTE | 2021-05-23 09:03 | PM.PREOP ---
Pre-operative Note COVID-19 COVID-19 status: Negative Result date/Date tested (Pos, Neg/Pending): 05/22/21 Interval Note History & Physical reviewed/Exam performed by Physician: Yes Changes to H&P: No
[2021-05-23] MEDS: CEFAZOLIN 1 GM VIAL 2 GM IV (09:50)
--- NOTE | 2021-05-23 10:13 | SUR.OPER ---
Lithotomy on padded OR bed. [place] Pad Positioner under torso. Head on pillow, arms padded and tucked at sides. Legs secured in padded yellow fins stirrups.
[2021-05-23] MEDS: BUPIVACAINE 0.5% (PF) VIAL 30 ML INJ (10:22)
[2021-05-23] MEDS: EPINEPHrine 1 MG/ML 0.15 MG INJ (10:23)
[2021-05-23] MEDS: ROPIVACAINE 0.2% PF 2 MG/ML 10ML AMP 20 ML INJ (11:19)
--- NOTE | 2021-05-23 11:36 | PM.OP.1 ---
Operative Date/Time/Diagnoses Date of procedure: 05/23/21 Time of procedure: 11:36 Pre-op diagnosis: Abnormal uterine bleeding, pelvic pain, dyspareunia, family history of cancer Post-op diagnosis: same Procedure & Clinicians Procedure: Laparoscopic-assisted vaginal hysterectomy with bilateral salpingo oophorectomy Same procedure as scheduled: Yes Indications: Patient with abnormal uterine bleeding, possible postmenopausal bleeding, dyspareunia, pelvic pain, family history cancer. Surgeon: Charlotte Dumont Commercial Director: Terrell Xiao Click Yes if Unassisted: No Anesthesia Type: General Operative Notes Findings: Normal tubes, ovaries, uterus. Normal liver edge. Normal bowel surface. No internal hernias. No endometriosis. Closure Type: primary Specimen(s): other (Uterus, tubes and ovaries) Applied: catheter (Caraballo) Estimated Blood Loss (mL): 100 Blood products transfused: none Procedure in detail: Patient was brought to the operating room where she underwent general anesthesia. She was [facility] stirrups. A check system was reviewed. 2 gram Ancef were in prior to beginning case. Warming was in place. Pulsatile stockings were in place and functional. She was prepped and draped in the usual sterile fashion. A single-tooth tenaculum was placed on the anterior lip of the cervix. The cervix was dilated to #6 Hegar dilator to allow the uterine manipulator to be placed through the cervix into the uterus with the balloon inflated with 3 mL of air. A Caraballo catheter was placed. Area of the umbilical incision was injected with lidocaine. An incision was made with the scalpel. The varees needle was placed in the abdomen. Correct placement was noted by withdrawing on the syringe and the having a drop of water fall easily through the syringe into the abdomen. The abdomen was insufflated with CO2. 5 mm trochars were placed in the right and left lower quadrant under direct visualization. There did not appear to be any damage with placement of the trochars. The PK generator was used to cauterize and cut the infundibulopelvic ligaments bilaterally. Sequential bites were taken down the broad ligament freeing the fallopian tubes and ovaries bilaterally. The uterine arteries were cauterized and cut. Bladder flap was developed. Next the procedure was switched to a vaginal approach. Lidocaine with epi was injected around the cervix. The cervix was circumscribed with a scalpel. A single-tooth tenaculum was placed on the posterior lip of the cervix and a posterior colpotomy incision was made. The uterosacral ligaments were clamped, cut, and ligated with 0 Vicryl suture which was used throughout the rest the case unless otherwise indicated. The bladder pillars were clamped cut and ligated. Using sharp and blunt dissection the bladder was pushed away from the cervix. Sequential bites were taken up the cardinal and broad ligaments with the LigaSure. An anterior colpotomy incision was made and the bladder held away from the uterus. The uterus tubes and ovaries were removed vaginally. Adequate hemostasis noted. The vaginal cuff was closed from anterior to posterior with [id number] sutures. The abdomen was reinsufflated and adequate hemostasis was noted. 20 cc of ropivacaine were placed on the vaginal cuff. The CO2 was allowed to escape from the abdomen and the trochars were removed. The skin was closed with 4-0 Monocryl. Counts of instruments and sponges were correct. Patient went to recovery room in good condition. Complications: none Post-operative Condition: stable Disposition: Acute Care (Out patient with bed) Plan for aftercare: Monitor for bleeding and recovery from anesthesia. Home in a.m. if stable
[2021-05-23] MEDS: fentaNYL 100 MCG/2 ML INJ IV ×2 (11:57→12:14)
--- NOTE | 2021-05-23 11:58 | SUR.PHASEI ---
1148 - Report received from ASHLEY Ortiz.
--- NOTE | 2021-05-23 12:07 | SUR.PHASEI ---
Report given to ASHLEY Mazariegos.
[2021-05-23] MEDS: HYDROMORPHONE 2 MG INJ IV ×2 (12:21→12:26)
--- NOTE | 2021-05-23 12:47 | SUR.PHASEI ---
Assumed care from Shaina at 1230, medicated pt with fentanyl then dilaudid. Pt then tolerated applesauce and given percocet. Dr. Dumont to bedside, spoke with pt. dressings to abdomen c/d/i as well as peripad. Pt presently on phone with .
--- NOTE | 2021-05-23 13:09 | SUR.PHASEI ---
Pt transferred up to room 202 on room air, once in room placed on 1 l nasal cannula. Pt became slightly nauseated on the way to her room, nausea resolved by the time pt arrived to room.
--- NOTE | 2021-05-23 13:11 | SUR.PHASEI ---
Pt left in stable condition with Kelle, bed down, locked SCD's on.
--- NOTE | 2021-05-23 13:20 | PC.NURSE ---
Day shift: Pt on AC unit from PACU at approx 1300. She is A&Ox4 and in good spirits. She does c/o ABD pain at this time. Will medicate per NOV. 2L L NC 97%. 3 LAB sites are covered with dressings and are CDI. Denies any nausea. Tolerating ice chips. VS WNL. Also tolerating SCD's. IV fluids going per NOV. Oriented to room and call light. Call light in reach. Bed alarm is on and she agrees to not get OOB w/o help from staff. Caraballo ;patent and draining clear yellow. Sagrario pad in place as well. Will continue w/ plan of care.
[2021-05-23] MEDS: KETOROLAC 30 MG/ML VIAL IV ×2 (13:30→19:52)
[2021-05-23] MEDS: ACETAMINOPHEN 325 MG TABLET 650 MG PO ×2 (14:16→23:17)
[2021-05-23] MEDS: OXYCODONE IR 5 MG TABLET PO (14:16)
[2021-05-23] MEDS: ONDANSETRON 4 MG/2 ML INJ IV ×2 (15:12→20:06)
[2021-05-23] MEDS: SODIUM CHLORIDE 0.9% FLUSH 10 ML IV (15:13)
--- NOTE | 2021-05-23 16:24 | PC.NURSE ---
Assumed care of pt at 1500. Pt resting in bed reports N/V. Dayshift RN medicated per NOV. Pt reports relief. Band-aids to abd remain c/d/i. Scant drainage on sadi-pad. Caarballo draining to gravity. IVF infusing per nov. RA Sats 96-98%. CPOX on. Pt states I just want to sleep. Call light within reach. Pt verbalized she will call for needs.
[2021-05-23] MEDS: METOCLOPRAMIDE 10 MG/2 ML INJ 5 MG IV ×2 (16:58→23:41)
[2021-05-24] VITALS (7 sets, daily range): BP systolic 114–130; BP diastolic 61–75; PULSE 69–83; RESP 16–17; TEMP 36.5–36.6; O2SAT 95–99
[2021-05-24] MEDS: KETOROLAC 30 MG/ML VIAL IV ×2 (01:31→07:00)
[2021-05-24] MEDS: ACETAMINOPHEN 325 MG TABLET 650 MG PO ×2 (05:04→10:22)
[2021-05-24 06:24] LABS: Add Manual Diff / Slide Review NO; Basophils Absolute Auto 0 /uL (0-100); Basophils Percent Auto 0.2 % (0-2); Eosinophils Absolute Auto 0 /uL (0-450); Hematocrit 35.5 % (36-46); Hemoglobin 11.9 g/dL (12.0-16.0); Lymphocytes Absolute Auto 1600 /uL (1100-4500); Lymphocytes Percent Auto 12.3 % (25-40); Mean Corpuscular HGB Conc 33.5 % (30-36); Mean Corpuscular Hemoglobin 30.9 PG (26-34); Mean Corpuscular Volume 92.1 fL (80-100); Monocytes Absolute Auto 800 /uL (0-900); Monocytes Percent Auto 6.6 % (3-14); Neutrophils Absolute Auto 10400 /uL (1500-7000); Neutrophils Percent Auto 80.9 % (50-75); Platelet Count 248 X10^3/uL (150-400); Red Blood Cell Count 3.85 X10^6/uL (4.0-5.2); Red Cell Distribution Width 14.2 % (11.6-14.8); White Blood Cell Count 12.9 X10^3/uL (4.5-11.0)
--- NOTE | 2021-05-24 08:51 | CM.DANOTE ---
DCP: Case received, EMR reviewed and met with patient. Introduced self and role. Was able to obtain information regarding patient's baseline activity prior to hospitalization, as well as plan for home. DCP assessment completed with information currently available. Patient is a 45 year old female who admitted yesterday morning to the care of the [facility] team. Payer: confirmed: [facility]. PCP: Dr. Rainey. Patient came to the hospital via private vehicle for a surgical procedure. She had a laparoscopic assisted vaginal hysterectomy. Patient has had history of increased pelvic pain. Met with patient in her room. She was sitting up in bed, R.T. was in the room, and they were getting ready to do an EKG. Patient is independent at her baseline, and resides here in [place] with her spouse, Flako. She confirmed that he will be able to assist her when she goes home. P: DCP to continue to follow. Plan is for home when she is deemed medically stable. Chasity Connelly RN/Plasma Specialist
[2021-05-24] MEDS: MAG HYDROX/ALUMINUM/SIMETH SUS 20 ML, LIDOCAINE VISCOUS 2% 15 ML PO (09:53)
[2021-05-24] MEDS: DOCUSATE 100 MG CAPSULE 200 MG PO (09:53)
[2021-05-24 10:05] LABS: Add Manual Diff / Slide Review NO; Basophils Absolute Auto 0 /uL (0-100); Basophils Percent Auto 0.2 % (0-2); Eosinophils Absolute Auto 0 /uL (0-450); Eosinophils Percent Auto 0.1 % (2-4); Hematocrit 33.7 % (36-46); Hemoglobin 11.5 g/dL (12.0-16.0); Lymphocytes Absolute Auto 1900 /uL (1100-4500); Lymphocytes Percent Auto 15.1 % (25-40); Mean Corpuscular HGB Conc 34.1 % (30-36); Mean Corpuscular Hemoglobin 31.2 PG (26-34); Mean Corpuscular Volume 91.6 fL (80-100); Monocytes Absolute Auto 800 /uL (0-900); Monocytes Percent Auto 6.6 % (3-14); Neutrophils Absolute Auto 10000 /uL (1500-7000); Platelet Count 231 X10^3/uL (150-400); Red Blood Cell Count 3.68 X10^6/uL (4.0-5.2); Red Cell Distribution Width 14.1 % (11.6-14.8); White Blood Cell Count 12.8 X10^3/uL (4.5-11.0)
[2021-05-24 10:06] LABS: INR 1.1 (0.9-1.3); Prothrombin Time 12.7 SECONDS (10.1-12.7)
[2021-05-24 10:08] LABS: PTT Partial Thromboplastin Tim 26 SECONDS (26.4-36.2)
[2021-05-24 10:14] LABS: Alanine Aminotransferase 23 IU/L (<35); Albumin 3.5 g/dL (3.5-5.0); Albumin Globulin Ratio 1.3 (1.0-2.8); Alkaline Phosphatase 50 U/L (38-126); Aspartate Aminotransferase 18 IU/L (14-36); BUN Creatinine Ratio 16.2 (6-22); Bilirubin Total 0.3 mg/dL (0.2-1.3); Blood Urea Nitrogen 11 mg/dL (7-17); Calcium 8.8 mg/dL (8.4-10.2); Carbon Dioxide 25 mmol/L (22-32); Chloride 106 mmol/L (98-107); Estimated Glomerular Filt Rate > 60.0 mL/min (>60); Globulin 2.6 g/dL (1.7-4.1); Glucose 142 mg/dL (70-100); HEMOLYSIS < 15 (0-50); Potassium 3.8 mmol/L (3.4-5.1); Sodium 137 mmol/L (137-145); Total Protein 6.1 g/dL (6.3-8.2)
[2021-05-24 10:26] LABS: Troponin I < 0.012 ng/mL (0.01-0.034)
[2021-05-24] MEDS: ALBUTEROL 2.5 MG/3 ML NEB (ADULT) INH (10:29)
--- NOTE | 2021-05-24 10:37 | P.DS_ITS ---
History of Present Illness History of Present Illness Date Patient Seen: 05/24/21 Time Patient Seen: 10:37 Chief complaint: OPB Narrative: Postoperative laparoscopic-assisted vaginal hysterectomy with bilateral salpingo oophorectomy Discharge Providers Provider Discharge Date: 05/24/21 Primary care physician: Geovanny Rainey DO Consults: 05/24/21 09:38 Consult to Physician Routine Comment: Consulting Provider: Sherita Paula Reason for consultation: chest pain Discharge provider: Charlotte Dumont MD Summary Hospital Course Discharge Diagnosis: Abnormal uterine bleeding, dyspareunia, pelvic pain, family history of cancer Hospital Course: Patient underwent a laparoscopic-assisted vaginal hysterectomy with bilateral salpingo oophorectomy on 05/23/2021. Patient had significant nausea postoperatively. Her nausea has since resolved. She is passing gas. She did have substernal chest pain that appears to be musculoskeletal in origin. Patient was seen by Dr. Daphne Paula to rule out cardiac cause of pain. Patient does not have any signs or symptoms of DVT. Patient denies any significant pelvic pain. Status at Discharge Cognitive/behavioral status at discharge: oriented Functional status at discharge: independent ambulation Overall status at discharge: patient is progressing back to baseline Time Spent with Patient Time spent: Less than 30 minutes Exam Vital Signs (past 8 hours): - 05/24/21 06:18 05/24/21 08:00 Temperature 97.7 F 97.8 F Pulse Rate 78 77 Respiratory Rate 16 16 Blood Pressure 126/75 114/61 Pulse Oximetry 95 97 Oxygen Delivery Method Room Air Oxygen Flow Rate 0 Narrative Exam Narrative: Patient's abdomen is soft, nontender. Dressings are clean, dry, intact. Minimal vaginal bleeding. Extremities without edema and nontender. Objective Labs Result Diagrams: 05/24/21 09:47 05/24/21 09:47 Labs: Laboratory Results - last 24 hr 05/24/21 05/24/21 05/24/21 06:15 09:47 09:47 WBC 12.9 H 12.8 H RBC 3.85 L 3.68 L Hgb 11.9 L 11.5 L Hct 35.5 L 33.7 L MCV 92.1 91.6 MCH 30.9 31.2 MCHC 33.5 34.1 RDW 14.2 14.1 Plt Count 248 231 Neut % (Auto) 80.9 H 78.0 H Lymph % (Auto) 12.3 L 15.1 L [place] % (Auto) 6.6 6.6 Eos % (Auto) 0.0 L 0.1 L Baso % (Auto) 0.2 0.2 Neut # (Auto) 61994 H 90655 H Lymph # (Auto) 1600 1900 [place] # (Auto) 800 800 Eos # (Auto) 0 0 Baso # (Auto) 0 0 PT INR APTT Sodium 137 Potassium 3.8 Chloride 106 Carbon Dioxide 25 BUN 11 Creatinine 0.68 Estimated GFR > 60.0 BUN/Creatinine Ratio 16.2 Glucose 142 H Calcium 8.8 Total Bilirubin 0.3 AST 18 ALT 23 Alkaline Phosphatase 50 Troponin I Total Protein 6.1 L Albumin 3.5 Globulin 2.6 Albumin/Globulin Ratio 1.3 05/24/21 05/24/21 09:47 09:47 WBC RBC Hgb Hct MCV MCH MCHC RDW Plt Count Neut % (Auto) Lymph % (Auto) [place] % (Auto) Eos % (Auto) Baso % (Auto) Neut # (Auto) Lymph # (Auto) [place] # (Auto) Eos # (Auto) Baso # (Auto) PT 12.7 INR 1.1 APTT 26 L Sodium Potassium Chloride Carbon Dioxide BUN Creatinine Estimated GFR BUN/Creatinine Ratio Glucose Calcium Total Bilirubin AST ALT Alkaline Phosphatase Troponin I < 0.012 Total Protein Albumin Globulin Albumin/Globulin Ratio [facility] Medical History (Updated 05/22/21 @ 11:53 by Charlotte Dumont MD) Abnormal mammogram ADHD (~1985) Anxiety Autism (~1995) Bruise Bruising Cervical cancer screening Cough Fibromyalgia (~2007) Irritable bowel syndrome (~1993) Lung infection Nausea Ovarian cyst (~1999) Psoriatic arthritis (~2015) Seizures (~2004) Vaginal spotting Surgical History (Updated 05/23/21 @ 11:45 by Charlotte Dumont MD) Anesthesia History of cholecystectomy (~2004) History of knee surgery (~2004) Family History Father Poor health Mother Poor health Lung cancer Social History household members: spouse and children Smoking Status: Never smoker alcohol intake: former Discharge Assessment & Plan Assessment and Plan Assessment: Postoperative laparoscopic-assisted vaginal hysterectomy bilateral salpingo oophorectomy. Patient is improving other than chest pain which appears to be musculoskeletal. Plan of Treatment: If the patient is cleared by Dr. Paula she will be discharged home to follow-up in 1 week. Discharge Plan Discharge Plan Patient Disposition: Home Discharge orders & Medications Discharge Orders: Discharge (Order); Ordered 05/24/21 Ordered By: Charlotte Dumont Prescriptions: Continued clobetasol 0.05 % solution 1 applic topical BID 14 Days Qty: 25 RF: 1 albuterol sulfate [ProAir HFA] 90 mcg/actuation HFA aerosol inhaler 2 puff INHALATION Q6H PRN (Reason: shortness of breath) Qty: 18 RF: 2 fluticasone propionate [Flonase Allergy Relief] 50 mcg/actuation spray,suspension 1 spray NASAL DAILY Qty: 19.8 RF: 0 oxycodone 5 mg tablet 5 mg PO Q4H PRN (Reason: pain) Qty: 30 RF: 0 Follow up/Referrals: Charlotte Dumont MD [Physician] - As previously scheduled (One-week) Geovanny Rainey DO [Primary Care Provider] - Diet/Activity/Treatments Diet: Regular Activity: Nothing in vagina for 6 weeks Skin/Wound/Dressing Care Report to your healthcare provider any signs of infection, such as:: chills, fever, increased pain and unusual redness Dressing: May remove Band-Aids today leave Steri-Strips in place. Can get wet just pat dry Visit Report/Discharge Packet Instructions: DI for Hysterectomy, DI for Laparoscopy Discharge Data Primary Care Provider: Geovanny Rainey Attending Provider: Charlotte Dumont
--- NOTE | 2021-05-24 11:31 | PM.CN ---
History of Present Illness Consult details Date Patient Seen: 05/24/21 Time Patient Seen: 09:30 Chief complaint: OPB Reason for consult: chest pains Requesting provider: Natacha Ospina Narrative: Pt is a 45yo woman with fibromyalgia, anxiety, and depression who is POD #1 s/p laparoscopic-assisted vaginal hysterectomy with bilateral salpingo oophorectomy who is now reporting acute chest pain. The pt reports that she first experienced the pain last night when going to sleep, laying on her side. She changed positions, and the pain resolved. This morning, when she sat up to eat breakfast, the pain acutely returned. She reports it is substernal and sharp in nature. It is worse with a deep breath. The pt notes that when she moves the pain is worse. It radiates up her ribcage and down towards her abdomen, but does not radiate into her arms or neck. She denies any associated nausea, palpitations, or diaphoresis. She does report feeling SOB, however states this is only due to not wanting to take a deeper breath secondary to the pain. She has never experienced a similar pain in the past. Her surgeon, Dr Dumont, does not that the pts anesthesia had to be rebolused a couple times during surgery due to her bucking. The pt denies any other acute injury recently. She has passed minimal flatus since surgery. Meds Home Medications and Allergies Home Medications Medication Instructions Recorded Confirmed Type albuterol sulfate 90 mcg/actuation 2 puff INHALATION Q6H PRN #18 gram 07/21/19 05/23/21 Rx aerosol inhaler (ProAir HFA) fluticasone propionate 50 1 spray NASAL DAILY #19.8 ml 07/21/19 05/23/21 Rx mcg/actuation nasal spray,suspension (Flonase Allergy Relief) clobetasol 0.05 % scalp solution 1 applic TOPICAL BID 14 Days #25 ml 04/08/21 05/23/21 Rx oxycodone 5 mg tablet 5 mg PO Q4H PRN #30 tab 05/22/21 05/23/21 Rx Allergies Allergy/AdvReac Type Severity Reaction Status Date / Time No Known Allergies Allergy Uncoded 05/23/21 08:19 Exam Vital Signs (past 8 hours): - 05/24/21 06:18 05/24/21 07:30 05/24/21 08:00 Temperature 97.7 F 97.8 F Pulse Rate 78 77 Respiratory Rate 16 16 Blood Pressure 126/75 114/61 Pulse Oximetry 95 97 97 05/24/21 10:29 Temperature Pulse Rate 69 Respiratory Rate 16 Blood Pressure Pulse Oximetry 99 Oxygen Delivery Method Room Air Oxygen Flow Rate 0 Narrative Exam Narrative: GEN - alert, cooperative and no distress HEENT - normocephalic and atraumatic, moist mucus membranes HEART - RRR, S1, S2 normal, no S3 or S4, grade 2/6 systolic murmur LUNGS - symmetric chest rise, no accessory muscles, clear to auscultation bilaterally CHEST - tender to palpation centrally around sternum, pt states does not completely reproduce pain ABD - nondistended, normal bowel sounds, soft, nontender EXT - no cyanosis, clubbing or edema Objective Labs Result Diagrams: 05/24/21 09:47 05/24/21 09:47 Labs: Laboratory Results - last 24 hr 05/24/21 05/24/21 05/24/21 06:15 09:47 09:47 WBC 12.9 H 12.8 H RBC 3.85 L 3.68 L Hgb 11.9 L 11.5 L Hct 35.5 L 33.7 L MCV 92.1 91.6 MCH 30.9 31.2 MCHC 33.5 34.1 RDW 14.2 14.1 Plt Count 248 231 Neut % (Auto) 80.9 H 78.0 H Lymph % (Auto) 12.3 L 15.1 L [place] % (Auto) 6.6 6.6 Eos % (Auto) 0.0 L 0.1 L Baso % (Auto) 0.2 0.2 Neut # (Auto) 45684 H 97672 H Lymph # (Auto) 1600 1900 [place] # (Auto) 800 800 Eos # (Auto) 0 0 Baso # (Auto) 0 0 PT INR APTT Sodium 137 Potassium 3.8 Chloride 106 Carbon Dioxide 25 BUN 11 Creatinine 0.68 Estimated GFR > 60.0 BUN/Creatinine Ratio 16.2 Glucose 142 H Calcium 8.8 Total Bilirubin 0.3 AST 18 ALT 23 Alkaline Phosphatase 50 Troponin I Total Protein 6.1 L Albumin 3.5 Globulin 2.6 Albumin/Globulin Ratio 1.3 05/24/21 05/24/21 09:47 09:47 WBC RBC Hgb Hct MCV MCH MCHC RDW Plt Count Neut % (Auto) Lymph % (Auto) [place] % (Auto) Eos % (Auto) Baso % (Auto) Neut # (Auto) Lymph # (Auto) [place] # (Auto) Eos # (Auto) Baso # (Auto) PT 12.7 INR 1.1 APTT 26 L Sodium Potassium Chloride Carbon Dioxide BUN Creatinine Estimated GFR BUN/Creatinine Ratio Glucose Calcium Total Bilirubin AST ALT Alkaline Phosphatase Troponin I < 0.012 Total Protein Albumin Globulin Albumin/Globulin Ratio Assessment & Plan Assessment & Plan narrative: Pt is a 45yo woman with fibromyalgia, anxiety, and depression who is POD #1 s/p laparoscopic-assisted vaginal hysterectomy with bilateral salpingo oophorectomy, consulted due to acute onset of chest pain. The pts EKG does have some T-wave inversions however no ST-elevation or depression. Unknown chronicity of change without prior EKG to compare to. Lab work is reassuring with negative troponin. Exam is reassuring, and pain is producible with palpation over the sternum. Based on the description of the pain as sharp, and worse with movement and breathing, low concern for ACS/Cardiac etiology. Also low concern for PE, as SOB is only due to discomfort. Overall, based on exam, symptoms, labs and EKG most likely costochondral etiology of pain. Discussed relative rest, ice/heat, and NSAIDs to help with discomfort. Should improve with time.
[2021-05-24] MEDS: IBUPROFEN 600 MG TABLET PO (12:55)
[2021-05-24] MEDS: CYCLOBENZAPRINE 10 MG TABLET PO (13:14)
--- NOTE | 2021-05-24 14:55 | PC.NURSE ---
Pending discharge: Pt had mid sternal c/p this am at 0815. Sudden onset 05/06. Doesn't radiate. Towner sob. Has no other cardiac sxs and pt reports she doesn't think this is cardiac pain. bp -138/89 p 70 rr 16 O2 sat 99%. RT called for ekg. Same obtained. Dr. Dumont not operator electronic warfare but did try to reach her first as she likes to take care of her own pt's. Not available, paged and got a hold of Dr. Ospina. Consult with medical for further advice. Dr. Paula called, notified of c/p, see new orders, labs were obtained, given gi cocktail which made no difference with her c/p. Dr. Dumont did come by later and notified of events. Dr. Curtis here and she was notified of events. Both MD's examined pt. Results of labs obtained. See labs. Also has a headache and MD's aware. Both MD's agreed this was a muscle strain. Caraballo cath removed per orders. Pt has voided w/out diff. However pt still having pain when she moved to a sitting or standing position. Dr. Dumont called. Tried some flexaril. Pt reports the flexaril was effective and rx called in to pt's pharmacy for same per md order. Pt is awaiting her ride.
== END 2021-05-24 15:40 | disposition home or self-care (01) ==
LOC: OR 08:04 → AC 08:04 → LABOR 12:21 → AC 12:30
PROVIDERS: Family Medicine; Family Provider Physician Assistant; PCP Family Medicine; Referring Provider Specialist; Visit Provider Specialist
PROC: 0UT9FZZ Resection of Uterus, Via Natural or Artificial Opening With Percutaneous Endoscopic Assistance (ICD-10-PCS; CPT 58552; principal; 2021-05-23 09:45)
DX: N83.8 Other noninflammatory disorders of ovary, fallopian tube and broad ligament (principal); J45.20 Mild intermittent asthma, uncomplicated; D27.0 Benign neoplasm of right ovary
CPT/HCPCS: 58552; 36415; 80053; 81025; 84484; 85025; 85610; 85730; 93005; 93010; 94640; 94760; 99225; J0171; J0360; J0690; J1100; J1170; J1885; J2250; J2405; J2704; J2765; J2795; J3010; J7613

== ENCOUNTER → 2021-06-27 15:10 | Outpatient (CLI) | payer OTHER, SELFPAY ==
[2021-05-23 13:41] VITALS: BMI 43.5
[2021-06-27 16:37] LABS: Add Manual Diff / Slide Review NO; Basophils Absolute Auto 0 /uL (0-100); Basophils Percent Auto 0.4 % (0-2); Eosinophils Absolute Auto 600 /uL (0-450); Eosinophils Percent Auto 5.6 % (2-4); Hematocrit 40.3 % (36-46); Hemoglobin 13.5 g/dL (12.0-16.0); Lymphocytes Absolute Auto 2300 /uL (1100-4500); Lymphocytes Percent Auto 20.8 % (25-40); Mean Corpuscular HGB Conc 33.5 % (30-36); Mean Corpuscular Hemoglobin 31.2 PG (26-34); Mean Corpuscular Volume 93.3 fL (80-100); Monocytes Absolute Auto 700 /uL (0-900); Monocytes Percent Auto 6.1 % (3-14); Neutrophils Absolute Auto 7300 /uL (1500-7000); Neutrophils Percent Auto 67.1 % (50-75); Platelet Count 236 X10^3/uL (150-400); Red Blood Cell Count 4.32 X10^6/uL (4.0-5.2); Red Cell Distribution Width 14.1 % (11.6-14.8); White Blood Cell Count 10.9 X10^3/uL (4.5-11.0)
[2021-06-27 17:04] LABS: Alanine Aminotransferase 42 IU/L (<35); Albumin 4.4 g/dL (3.5-5.0); Albumin Globulin Ratio 1.5 (1.0-2.8); Alkaline Phosphatase 72 U/L (38-126); Aspartate Aminotransferase 36 IU/L (14-36); BUN Creatinine Ratio 18.7 (6-22); Bilirubin Total 0.6 mg/dL (0.2-1.3); Blood Urea Nitrogen 14 mg/dL (7-17); Calcium 9.3 mg/dL (8.4-10.2); Carbon Dioxide 28 mmol/L (22-32); Chloride 102 mmol/L (98-107); Estimated Glomerular Filt Rate > 60.0 mL/min (>60); Globulin 2.9 g/dL (1.7-4.1); Glucose 117 mg/dL (70-100); HEMOLYSIS < 15 (0-50); Lipase 36 U/L (23-300); Potassium 4.3 mmol/L (3.4-5.1); Sodium 138 mmol/L (137-145); Total Protein 7.3 g/dL (6.3-8.2)
[2021-06-29 11:28] LABS: Interpretation Negative (Negative)
== END ==
PROVIDERS: Family Provider Physician Assistant; PCP Family Medicine; Referring Provider Registered Nurse; Visit Provider Registered Nurse
DX: R11.0 Nausea (principal); R63.0 Anorexia; R53.83 Other fatigue; R10.9 Unspecified abdominal pain
CPT/HCPCS: 36415; 80053; 83013; 83690; 85025

== ENCOUNTER → 2021-07-07 12:43 | Outpatient (CLI) | payer OTHER, SELFPAY ==
[2021-05-23 13:41] VITALS: BMI 43.5
--- NOTE | 2021-07-07 12:44 | DI.US.S_ITS ---
PROCEDURE: US ABDOMEN COMPLETE INDICATIONS: abdominal pain TECHNIQUE: Real-time scanning was performed of the abdominal and retroperitoneal organs, with image documentation. COMPARISON: None. FINDINGS: Liver: Markedly increased hepatic parenchymal echogenicity with increased attenuation of sound resulting in limited visualization of the deep hepatic lobes. Findings consistent with severe hepatic steatosis. Gallbladder: Status post cholecystectomy. Biliary ducts: Obscured by the degree of steatosis and body habitus. Pancreas: Obscured by bowel gas and body habitus. Spleen: Spleen is normal in size and homogeneous in echotexture. Kidneys: No shadowing calculus or hydronephrosis. Aorta: Visualized aorta is normal in caliber at less than 3 cm. Iliacs: Proximal common iliac arteries are normal in caliber at less than 2.5 cm. IVC: Intrahepatic inferior vena cava is patent. Miscellaneous: No free abdominal fluid. IMPRESSION: Severe hepatic steatosis. Dictated by: Juarez Rowe M.D. on 07/07/2021 at 14:54 Approved by: Juarez Rowe M.D. on 07/07/2021 at 14:56
--- NOTE | 2021-07-07 12:44 | DI.US.S_ITS ---
ULTRASOUND OF LEFT BREAST AND AXILLA: 07/07/2021 CLINICAL: Left axilla lymphnode follow up. Comparison is made to exams dated: 04/16/2021 ultrasound and 04/12/[address] [facility] neck 12/16/2017. Color flow and real-time ultrasound of the left breast axilla were performed. Ramos scale images of the real-time examination were reviewed. Enlarged left axillary lymph nodes. There is a 4 cm x 1.4 cm x 1.3 cm oval lymph node with uniform cortical thickening with a circumscribed margin in the left axilla. Cortical thickness measures 3.7mm and is slightly decreased. This oval lymph node displays fatty hilum. This correlates as palpated. Short axis diameter is similar to the prior exam. IMPRESSION: PROBABLY BENIGN Enlarged left axillary lymph nodes are probably benign. Fatty hilum is preserved and cortical thickening is slightly decreased. A follow-up ultrasound in 3 months is recommended to demonstrate stability. Future imaging is recommended as follows: 04/12/2022 mammogram. Exam findings were conveyed to the patient. Patient is advised to monitor for significant change. Clinical follow-up is recommended. This exam was interpreted at Station ID: [id number]. Electronically Signed By: Pradip Mckenzie M.D. slc/:07/07/2021 14:38:39 letter sent: Followup Recommended Ultrasound BI-RADS: 3 Probably benign
--- NOTE | 2021-07-07 12:44 | DI.US.S_ITS ---
PROCEDURE: US EXTREMELY NONVASC UPPER RT INDICATIONS: RIGHT ANTERIOR ELBOW LUMP TECHNIQUE: Real-time scanning was performed of the right elbow, with image documentation. COMPARISON: None. FINDINGS: Focused ultrasound examination of anterior right elbow shows no discrete soft tissue mass or fluid collection. IMPRESSION: No abnormality is seen in anterior medial right elbow at patient's reported area of lump. Dictated by: Isidro Vaughan M.D. on 07/07/2021 at 14:21 Approved by: Isidro Vaughan M.D. on 07/07/2021 at 14:48
== END ==
PROVIDERS: Family Provider Physician Assistant; PCP Family Medicine; Referring Provider Registered Nurse; Visit Provider Registered Nurse
DX: R10.9 Unspecified abdominal pain (principal); R59.0 Localized enlarged lymph nodes; R93.89 Abnormal findings on diagnostic imaging of other specified body structures; K76.0 Fatty (change of) liver, not elsewhere classified; R22.31 Localized swelling, mass and lump, right upper limb; M79.603 Pain in arm, unspecified; Z90.49 Acquired absence of other specified parts of digestive tract
CPT/HCPCS: 76700; 76882

== ENCOUNTER → 2021-07-23 11:25 | Outpatient (CLI) | payer OTHER, SELFPAY ==
[2021-05-23 13:41] VITALS: BMI 43.5
--- NOTE | 2021-07-23 11:25 | DI.CT.S_ITS ---
PROCEDURE: CT ABDOMEN PELVIS W CON INDICATIONS: Nausea TECHNIQUE: After the administration of oral and IV contrast, axial sections were acquired from the lung bases to the pubic symphysis. Coronal and sagittal reformats were performed. For radiation dose reduction, the following was used: automated exposure control, adjustment of mA and/or kV according to patient size. COMPARISON: [facility], CT, CT ABDOMEN PELVIS W CON, 06/20/2018, 23:01. FINDINGS: Image quality: Excellent. Lung bases: Unremarkable. Heart: No significant findings. ABDOMEN: Liver: Decreased attenuation of liver, compatible hepatic steatosis. Enlarged, measuring 21.9 cm in the craniocaudal dimension. Gallbladder: Cholecystectomy. Biliary ducts: Unremarkable. Pancreas: Unremarkable. Spleen: Normal contour, enlarged, measuring up to 13.9 cm. Adrenal Glands: Unremarkable. Kidneys and Ureters: Unremarkable. Stomach and Bowel: No evidence of intestinal obstruction. Mild wall thickening of the ascending colon (i.e. Series 4, image 362), which may reflect underdistention. Small caliber, normal appendix. Mild sigmoid diverticulosis. Peritoneum: No abnormal intraperitoneal fluid. No free air. Ventral Wall: No hernia. Abdominal Nodes: No retroperitoneal or mesenteric adenopathy by size criteria. Vessels: Aorta and inferior vena cava are normal in size. PELVIS: Pelvic Organs: Views appears surgically absent. Bladder: Unremarkable. Pelvic Nodes: No enlarged lymph nodes. Miscellaneous: No inguinal hernias are seen. Bones: No significant abnormality. Rudimentary ribs at T12. IMPRESSION: 1. Mild wall thickening of the ascending colon as detailed above, which may reflect underdistention. An infectious or neoplastic process cannot be excluded. 2. Hepatic steatosis with enlargement. 3. Splenomegaly. Dictated by: Zia Patel M.D. on 07/23/2021 at 12:52 Approved by: Zia Patel M.D. on 07/23/2021 at 13:06
== END ==
PROVIDERS: Family Provider Physician Assistant; PCP Family Medicine; Referring Provider Registered Nurse; Visit Provider Registered Nurse
DX: K76.0 Fatty (change of) liver, not elsewhere classified (principal); R10.84 Generalized abdominal pain; R10.2 Pelvic and perineal pain; R16.2 Hepatomegaly with splenomegaly, not elsewhere classified
CPT/HCPCS: 74177

== ENCOUNTER 2021-08-10 17:37 | Emergency (ER) | payer OTHER, SELFPAY ==
[2021-05-23 13:41] VITALS: BMI 43.5
[2021-08-10 17:40] VITALS: BP 138/62; PULSE 87; RESP 20; TEMP 36.7; O2SAT 98
--- NOTE | 2021-08-10 18:11 | ED_ITS ---
HPI - Abdominal Pain General Chief Complaint: Abdominal Pain Stated Complaint: Nauseous, Left Sided Abd Pain, Can't Eat or Drink Time Seen by Provider: 08/10/21 17:59 Source: patient Mode of arrival: Ambulatory History of Present Illness HPI narrative: 46F nonsmoker with history of chronic abdominal issues presents with a chief complaint of many weeks if not months of generalized abdominal pain that seems to be more intense in her epigastrium and sometimes her left lower quadrant. She denies specific pain but states her abdomen feels quite full and she has little appetite. She has been nauseated persistently but does not vomit all that often. She denies any fever or chills. She has frequent diarrhea and no issues with passing gas. She denies any medication or dietary change. She has been referred to Gastroenterology and has had the initial intake evaluation with an appointment sometime in August. Related Data Previous Rx's Medication Instructions Recorded albuterol sulfate 90 mcg/actuation 2 puff INHALATION Q6H PRN #18 gram 07/21/19 aerosol inhaler (ProAir HFA) fluticasone propionate 50 1 spray NASAL DAILY #19.8 ml 07/21/19 mcg/actuation nasal spray,suspension (Flonase Allergy Relief) clobetasol 0.05 % scalp solution 1 applic TOPICAL BID 14 Days #25 ml 04/08/21 fluticasone propionate 110 1 puff INHALATION BID #12 g 06/27/21 mcg/actuation HFA aerosol inhaler (Flovent HFA) ondansetron 8 mg disintegrating 8 mg PO Q12H PRN 14 Days #28 tab 07/29/21 tablet pantoprazole 40 mg tablet,delayed 40 mg PO DAILY #30 tab 08/10/21 release (Protonix) Allergies Allergy/AdvReac Type Severity Reaction Status Date / Time No Known Allergies Allergy Uncoded 05/23/21 08:19 Review of Systems Review of Systems Narrative: GENERAL: Denies chills, fatigue, malaise, fever, sweats. HEENT: Denies sinus pain, ear pain, sore throat, difficulty swallowing, dizziness. RESPIRATORY: Denies dyspnea, cough, wheezing, hemoptysis, sputum. CARDIOVASCULAR: Denies chest pain, palpitations, orthopnea, edema, GASTROINTESTINAL: See HPI : Denies dysuria, frequency, incontinence, hematuria, urinary retention. MUSCULOSKELETAL: denies weakness, joint pain, or bony pain SKIN: Denies rash, skin lesions, or other NEUROLOGIC: Denies weakness, headache, numbness, change in speech, confusion, seizures, incoordination. PSYCHIATRIC: No concerning psychosocial issues. 12 point review of systems is negative except for those stated above Patient History Medical History Abdominal pain Abnormal mammogram Abnormal ultrasound ADHD (~1985) Anemia, unspecified Anxiety Appetite loss Arm pain Autism (~1995) Bruise Bruising Cervical cancer screening Cough Fibromyalgia (~2007) Frequent loose stools Irritable bowel syndrome (~1993) Lump Lung infection Nausea Nausea Ovarian cyst (~1999) Psoriatic arthritis (~2015) Seizures (~2004) Vaginal spotting Surgical History Anesthesia History of cholecystectomy (~2004) History of knee surgery (~2004) Family History Father Poor health Mother Poor health Lung cancer Social History household members: spouse and children Smoking Status: Never smoker alcohol intake: former Smoking Status: Never smoker alcohol intake frequency: 0-2 drinks per day Substance Use Type: marijuana Exam Narrative Exam Narrative: GENERAL: [46] year old patient appears stated age. Well-devel oped patient, in mild distress. HEAD: Atraumatic. Normocephalic. EYES: Pupils equal round and reactive. Extraocular motions intact. No scleral icterus. No injection or drainage. ENT: Nose without bleeding, purulent drainage. Throat without erythema, tonsillar hypertrophy or exudate. Airway patent. NECK: Trachea midline. Non tender CARDIOVASCULAR: Regular rate and rhythm without murmurs, gallops, or rubs. RESPIRATORY: Clear to auscultation. Breath sounds equal bilaterally. No wheezes, rales, or rhonchi. GASTROINTESTINAL: Abdomen soft, non-tender, nondistended. Bowel sounds present in all 4 quadrants EXTREMITIES: No edema or joint tenderness. BACK: Nontender without deformity or crepitance. No flank tenderness. NEURO: AOx3. SKIN: No rash or erythema of visible areas Initial Vital Signs Initial Vital Signs: Vital Signs Temperature 98.0 F 08/10/21 17:40 Pulse Rate 87 08/10/21 17:40 Respiratory Rate 20 08/10/21 17:40 Blood Pressure 138/62 08/10/21 17:40 Pulse Oximetry 98 08/10/21 17:40 Course Orders Ordered: ED Orders 08/10/21 19:29 XR acute abdomen series Stat Discontinued Medications Al Hydrox/Mg Hydrox/Simethicone 20 ml/ Lidocaine HCl 15 ml 0 ml PO NOW ONE Stop: 08/10/21 19:30 Last Admin: 08/10/21 19:44 Dose: 35 ml Documented by: ELISEO Sodium Chloride (Normal Saline 0.9%) 1,000 mls @ 1,000 mls/hr IV BOLUS ONE Stop: 08/10/21 20:28 Last Admin: 08/10/21 19:44 Dose: 1,000 mls/hr Documented by: ELISEO Pantoprazole Sodium (Pantoprazole 40 Mg Vial) 40 mg IV NOW ONE Stop: 08/10/21 19:30 Last Admin: 08/10/21 19:44 Dose: 40 mg Documented by: ELISEO Vital Signs Vital signs: Vital Signs - 8 hr 08/10/21 20:59 Pulse Rate 67 Respiratory Rate 18 Blood Pressure 159/99 H Pulse Oximetry 99 MDM - Abdominal Pain Lab Data Result diagrams: 08/10/21 18:05 08/10/21 18:05 Labs: Lab Results 08/10/21 08/10/21 08/10/21 Range/Units 18:02 18:05 18:05 WBC 10.2 (4.5-11.0) X10^3/uL RBC 4.37 (4.0-5.2) X10^6/uL Hgb 13.8 (12.0-16.0) g/dL Hct 40.1 (36-46) % MCV 91.7 (80-100) fL MCH 31.6 (26-34) PG MCHC 34.4 (30-36) % RDW 13.4 (11.6-14.8) % Plt Count 253 (150-400) X10^3/uL Neut % (Auto) 61.3 (50-75) % Lymph % (Auto) 26.1 (25-40) % [place] % (Auto) 5.8 (3-14) % Eos % (Auto) 6.3 H (2-4) % Baso % (Auto) 0.5 (0-2) % Neut # (Auto) 6300 (5445-9759) /uL Lymph # (Auto) 2700 (5056-0477) /uL [place] # (Auto) 600 (0-900) /uL Eos # (Auto) 600 H (0-450) /uL Baso # (Auto) 0 (0-100) /uL Sodium 138 (137-145) mmol/L Potassium 4.0 (3.4-5.1) mmol/L Chloride 104 (98-107) mmol/L Carbon Dioxide 25 (22-32) mmol/L BUN 9 (7-17) mg/dL Creatinine 0.68 (0.52-1.04) mg/dL Estimated GFR > 60.0 (>60) mL/min BUN/Creatinine Ratio 13.2 (6-22) Glucose 96 (70-100) mg/dL Calcium 9.2 (8.4-10.2) mg/dL Total Bilirubin 0.7 (0.2-1.3) mg/dL AST 28 (14-36) IU/L ALT 37 H (<35) IU/L Alkaline Phosphatase 78 (38-126) U/L Total Protein 7.3 (6.3-8.2) g/dL Albumin 4.4 (3.5-5.0) g/dL Globulin 2.9 (1.7-4.1) g/dL Albumin/Globulin Ratio 1.5 (1.0-2.8) Lipase 39 (23-300) U/L Urine RBC None seen (0-5/HPF) Urine WBC 0-1/hpf (0-5/HPF) Ur Squamous Epith Cells 1-5 /hpf (0-5/HPF) Urine Bacteria None seen (None) Urine Mucus 1+ H (Negative) Ur Culture Indicated? Cult not indicated Point of care testing: Urine Dip Bedside Urine Glucose Negative Bedside Urine Bilirubin - Negative Bedside Urine Ketone - Negative Urine Specific [place] 1.030 Bedside Urine Occult Blood - Negative Bedside Urine pH 6.0 Bedside Urine Protein +/- 15 Bedside Urine Urobilinogen - Negative Bedside Urine Nitrite - Negative Bedside Urine Leukocytes - Negative Esterase Imaging Data Abdominal x-ray: Radiologist's Impression: [address] [id number] ReportSigned Patient: Amparo Monreal EMR#: [id number]: [id number]:[id number]/Sex: 46 / FDate of Service: 08/10/21Loc: EDAccession Number: [id number] Procedure: XR acute abdomen series Ordering Provider: Harley Marcelino D.O. PROCEDURE: XR ACUTE ABDOMEN SERIES INDICATIONS: abdominal pain TECHNIQUE: One view chest and two views of the abdomen were acquired. COMPARISON: None. FINDINGS: Surgical changes and devices: Surgical clips are seen in gallbladder fossa. Chest: Lungs are clear. Heart size is normal. No pleural effusions. No pneumoperitoneum. Abdomen: Bowel gas pattern is nonobstructive. Mild to moderate fecal stasis throughout the colon is seen. No suspicious calcifications. Visualized solid organ contours appear normal. Bones: No suspicious bony lesions. IMPRESSION: Suggestion of mild constipation. No gross free air. No acute cardiopulmonary pathology. Dictated by: Isidro Vaughan M.D. on 08/10/2021 at 19:45 Approved by: Isidro Vaughan M.D. on 08/10/2021 at 19:48 MDM Narrative Medical decision making narrative: Patient has a reassuring history and physical exam. Labs and imaging are also reassuring. Multiple diagnoses considered such as bowel obstruction among others but no significant findings to support this diagnosis. Her pain is well controlled, she is able to tolerate orals, questions answered to her apparent satisfaction and return precautions given Discharge Plan Departure Patient Disposition: Home Clinical Impression: Chronic abdominal pain Instructions: DI for Abdominal Pain-Adult Activity Restrictions/Additional Instructions: *You have been diagnosed with [acute on chronic abdominal pain. Labs and imaging are very reassuring.] *What to do: *Please continue to take your regular medications as directed. [x ] New medication prescriptions sent to your pharmacy: [[facility] ] [ ] New medication written as a paper prescription [ ] No new medications given *Please follow up with your primary care provider in 2-3 days, call for an appointment. Let them know you were seen in the Emergency Department and that we ask that you be seen in follow up. We will electronically transmit a record of today's note if your PCP is in our system *If you do not have a primary care provider please contact the [facility] Resource line at [phone]. They will ask some questions about your medical history and help get you set up with a doctor in the community. *Return to Emergency Department if you should have any new, worsening or concerning symptoms, such as [fever greater than 101 F, shaking chills, worsening pain, persistent vomiting or other bothersome symptoms] Prescriptions: New pantoprazole [Protonix] 40 mg tablet,delayed release (DR/EC) 40 mg PO DAILY Qty: 30 RF: 0 No Action clobetasol 0.05 % solution 1 applic topical BID 14 Days Qty: 25 RF: 1 ondansetron 8 mg tablet,disintegrating 8 mg PO Q12H PRN (Reason: nausea and vomiting) 14 Days Qty: 28 RF: 0 albuterol sulfate [ProAir HFA] 90 mcg/actuation HFA aerosol inhaler 2 puff INHALATION Q6H PRN (Reason: shortness of breath) Qty: 18 RF: 2 fluticasone propionate [Flonase Allergy Relief] 50 mcg/actuation spray,suspension 1 spray NASAL DAILY Qty: 19.8 RF: 0 Flovent HFA 110 mcg/actuation HFA aerosol inhaler 1 puff inhalation BID Qty: 12 RF: 3 Referrals: Geovanny Rainey DO [Primary Care Provider] -
[2021-08-10 18:25] LABS: Add Manual Diff / Slide Review NO; Basophils Absolute Auto 0 /uL (0-100); Basophils Percent Auto 0.5 % (0-2); Eosinophils Absolute Auto 600 /uL (0-450); Eosinophils Percent Auto 6.3 % (2-4); Hematocrit 40.1 % (36-46); Hemoglobin 13.8 g/dL (12.0-16.0); Lymphocytes Absolute Auto 2700 /uL (1100-4500); Lymphocytes Percent Auto 26.1 % (25-40); Mean Corpuscular HGB Conc 34.4 % (30-36); Mean Corpuscular Hemoglobin 31.6 PG (26-34); Mean Corpuscular Volume 91.7 fL (80-100); Monocytes Absolute Auto 600 /uL (0-900); Monocytes Percent Auto 5.8 % (3-14); Neutrophils Absolute Auto 6300 /uL (1500-7000); Neutrophils Percent Auto 61.3 % (50-75); Platelet Count 253 X10^3/uL (150-400); Red Blood Cell Count 4.37 X10^6/uL (4.0-5.2); Red Cell Distribution Width 13.4 % (11.6-14.8); White Blood Cell Count 10.2 X10^3/uL (4.5-11.0)
[2021-08-10 18:27] LABS: Alanine Aminotransferase 37 IU/L (<35); Albumin 4.4 g/dL (3.5-5.0); Albumin Globulin Ratio 1.5 (1.0-2.8); Alkaline Phosphatase 78 U/L (38-126); Aspartate Aminotransferase 28 IU/L (14-36); BUN Creatinine Ratio 13.2 (6-22); Bilirubin Total 0.7 mg/dL (0.2-1.3); Blood Urea Nitrogen 9 mg/dL (7-17); Calcium 9.2 mg/dL (8.4-10.2); Carbon Dioxide 25 mmol/L (22-32); Chloride 104 mmol/L (98-107); Estimated Glomerular Filt Rate > 60.0 mL/min (>60); Globulin 2.9 g/dL (1.7-4.1); Glucose 96 mg/dL (70-100); HEMOLYSIS < 15 (0-50); Lipase 39 U/L (23-300); Sodium 138 mmol/L (137-145); Total Protein 7.3 g/dL (6.3-8.2)
[2021-08-10 18:35] LABS: Bacteria Urine None Seen; Culture Indicated Urine Cult Not Indicated; Mucus Urine 1+ (Negative); RBC Urine None Seen (0-5/HPF); Squamous Epithelial Cell Urine 1-5 /HPF (0-5/HPF); WBC Urine 0-1/HPF (0-5/HPF)
--- NOTE | 2021-08-10 19:29 | DI.RAD.S_ITS ---
PROCEDURE: XR ACUTE ABDOMEN SERIES INDICATIONS: abdominal pain TECHNIQUE: One view chest and two views of the abdomen were acquired. COMPARISON: None. FINDINGS: Surgical changes and devices: Surgical clips are seen in gallbladder fossa. Chest: Lungs are clear. Heart size is normal. No pleural effusions. No pneumoperitoneum. Abdomen: Bowel gas pattern is nonobstructive. Mild to moderate fecal stasis throughout the colon is seen. No suspicious calcifications. Visualized solid organ contours appear normal. Bones: No suspicious bony lesions. IMPRESSION: Suggestion of mild constipation. No gross free air. No acute cardiopulmonary pathology. Dictated by: Isidro Vaughan M.D. on 08/10/2021 at 19:45 Approved by: Isidro Vaughan M.D. on 08/10/2021 at 19:48
[2021-08-10] MEDS: MAG HYDROX/ALUMINUM/SIMETH SUS 20 ML, LIDOCAINE VISCOUS 2% 15 ML PO (19:44)
[2021-08-10] MEDS: SODIUM CHLORIDE 0.9% 1,000 ML 1000 ML IV (19:44)
[2021-08-10] MEDS: PANTOPRAZOLE 40 MG VIAL IV (19:44)
[2021-08-10 20:59] VITALS: BP 159/99; PULSE 67; RESP 18; O2SAT 99
--- NOTE | 2021-08-15 14:01 | PC.NURSE ---
late entry- per RN IV fluids DC'd at 2230 prior to discharge.
== END 2021-08-10 20:59 | disposition home or self-care (01) ==
PROVIDERS: Emergency Medicine; Emergency Provider Emergency Medicine; Family Provider Physician Assistant; PCP Family Medicine
DX: R10.84 Generalized abdominal pain (principal); G89.29 Other chronic pain; R19.7 Diarrhea, unspecified
CPT/HCPCS: 36415; 74022; 80053; 81003; 81015; 83690; 85025; 96361; 96374; 99284; C9113

== ENCOUNTER → 2021-09-08 08:01 | Outpatient (CLI) | payer OTHER, SELFPAY ==
[2021-05-23 13:41] VITALS: BMI 43.5
[2021-09-08 12:33] LABS: COVID19 -Nasal RAPID Negative (Negative)
== END ==
PROVIDERS: Family Provider Physician Assistant; PCP Family Medicine; Referring Provider Nurse Practitioner Family; Visit Provider Nurse Practitioner Family
DX: Z20.822 Contact with and (suspected) exposure to COVID-19 (principal)
CPT/HCPCS: 87635

== ENCOUNTER 2021-09-09 07:53 | Day surgery (SDC) | payer OTHER, SELFPAY ==
[2021-05-23 13:41] VITALS: BMI 43.5
--- NOTE | 2021-09-09 | PATH_ITS ---
[facility] Accession Number: [id number] . 01 Material submitted: . PART A: duodenum - DUODENUM BIOPSY PART B: gastrointestinal site - ANTRUM BIOPSY PART C: gastrointestinal site - BODY BIOPSY PART D: small bowel - TERMINAL ILEUM BIOPSY PART E: colon - RANDOM COLON BIOPSIES . 01 Clinical history: . D: NOTED EROSION - ERYTHEMA . 01 Diagnosis: A. Duodenum, Biopsy: Duodenal mucosa with no diagnostic abnormality. Negative for active inflammation, features of sprue, dysplasia, or malignancy. . B. Antrum, Biopsy: Gastric antral mucosa with mild chronic inflammation and focal intestinal metaplasia. Intestinal metaplasia present in one of two biopsy fragments. Negative for Helicobacter organisms by immunohistochemistry. Negative for dysplasia or malignancy. . C. Body, Biopsy: Gastric body mucosa with mild chronic inflammation. Negative for Helicobacter organisms by immunohistochemistry. Negative for intestinal metaplasia. Negative for dysplasia or malignancy. . D. Terminal Ileum, Biopsy: Mild active ileitis; please see comment. Negative for granulomata, dysplasia or malignancy. . E. Random Colon, Biopsies: Colonic mucosa with no diagnostic abnormality. Negative for active, chronic, and microscopic colitis. Negative for dysplasia and malignancy. [facility] 09/15/2021 1618 Local . 01 Comment: B. The findings in the ileal biopsy raise a differential diagnosis including infection, drug/toxin-induced injury, and in the appropriate clinical setting, idiopathic inflammatory bowel disease. . 01 Electronically signed: . Vick Cuba MD, PhD, Pathologist NPI- [id number] . 01 Gross description: . Part A: DUODENUM BIOPSY: Received in formalin are 3 fragment(s) of mulligan, soft tissue measuring 0.4 x 0.3 x 0.2 cm to 0.3 x 0.2 x 0.2 cm submitted entirely in 1 cassette(s) Part B: ANTRUM BIOPSY: Received in formalin are 2 fragment(s) of mulligan, soft tissue measuring 0.4 x 0.3 x 0.2 cm to 0.1 x 0.1 x 0.1 cm submitted entirely in 1 cassette(s) Part C: BODY BIOPSY: Received in formalin are 2 fragment(s) of mulligan, soft tissue measuring 0.3 x 0.3 x 0.2 cm to 0.3 x 0.2 x 0.1 cm submitted entirely in 1 cassette(s) Part D: TERMINAL ILEUM BIOPSY: Received in formalin are 2 fragment(s) of mulligan, soft tissue measuring 0.3 x 0.3 x 0.2 cm to 0.3 x 0.2 x 0.2 cm submitted entirely in 1 cassette(s) Part E: RANDOM COLON BIOPSIES: Received in formalin are 3 fragment(s) of mulligan, soft tissue measuring 0.3 x 0.3 x 0.1 cm to 0.3 x 0.2 x 0.1 cm submitted entirely in 1 cassette(s) /Q 09/10/2021 [facility] Local . 01 Microscopic: . B. An immunohistochemical stain was performed to evaluate for Helicobacter organisms and is negative. The control stain showed appropriate reactivity. A small focus of intestinal metaplasia is present, not identified on H/E stains. . C. An immunohistochemical stain was performed to evaluate for Helicobacter organisms and is negative. The control stain showed appropriate reactivity. . * This test was developed and its performance characteristics determined by [employer]. It has not been cleared or approved by the U.S. Food and Drug Administration. The FDA has determined that such clearance or approval is not necessary. This test is used for clinical purposes. It should not be regarded as investigational or for research. . 01 Pathologist provided ICD-10: K31.9, K29.70, K52.9, R19.4 . 01 CPT . 941378, 517625, 303726, 069418, 210457, H62672 Performed at: 01 [facility] [address] [place] [address], [place], [place] [id number] MD Lm Camarillo MD Phone: [phone]
[2021-09-09 08:14] VITALS: BP 132/84; PULSE 70; RESP 14; TEMP 36.3; O2SAT 98; BMI 39.9
[2021-09-09] MEDS: SODIUM CHLORIDE 0.9% 1,000 ML 84 ML IV (08:27)
--- NOTE | 2021-09-09 08:29 | PM.HP.1 ---
History of Present Illness History of Present Illness Date Patient Seen: 09/09/21 Time Patient Seen: 08:29 Chief complaint: SDC Narrative: I reviewed Dr. Curtis's note. No changes. Patient History Medical History Abdominal pain Abnormal mammogram Abnormal ultrasound ADHD (~1985) Anemia, unspecified Anxiety Appetite loss Arm pain Autism (~1995) Bruise Bruising Cervical cancer screening Cough Emesis Fibromyalgia (~2007) Frequent loose stools Irritable bowel syndrome (~1993) Lump Lung infection Nausea Nausea Ovarian cyst (~1999) Psoriatic arthritis (~2015) Seizures (~2004) Vaginal spotting Surgical History Anesthesia History of cholecystectomy (~2004) History of knee surgery (~2004) Family & Social History Family History Father Poor health Mother Poor health Lung cancer Social History: household members spouse,children Tobacco & Substance use: Smoking Status Never smoker alcohol intake current alcohol intake frequency holiday/special occasion Substance Use Type marijuana Meds Home Medications and Allergies Home Medications Medication Instructions Recorded Confirmed Type fluticasone propionate 50 1 spray NASAL DAILY #19.8 ml 07/21/19 08/19/21 Rx mcg/actuation nasal spray,suspension (Flonase Allergy Relief) clobetasol 0.05 % scalp solution 1 applic TOPICAL BID 14 Days #25 ml 04/08/21 08/19/21 Rx fluticasone propionate 110 1 puff INHALATION BID #12 g 06/27/21 08/19/21 Rx mcg/actuation HFA aerosol inhaler (Flovent HFA) albuterol sulfate 90 mcg/actuation 2 puff INHALATION Q6H PRN #18 gram 08/19/21 08/19/21 Rx aerosol inhaler (ProAir HFA) Allergies Allergy/AdvReac Type Severity Reaction Status Date / Time No Known Drug Allergies Allergy Verified 09/09/21 07:57 Review of Systems Review of Systems ROS: Yes All systems reviewed with the patient and are negative except as otherwise documented Exam Vital Signs (past 8 hours): - 09/09/21 08:14 Temperature 97.4 F L Pulse Rate 70 Respiratory Rate 14 Blood Pressure 132/84 Pulse Oximetry 98 Oxygen Delivery Method Room Air Const General: cooperative and comfortable Orientation: alert HENMT Head: normocephalic Ears: external ears normal Nose: external nose normal Face and sinus: normal facial exam Mouth: oral mucosae normal Eyes General: appearance normal, both eyes and all related structures Neck Neck: normal visual inspection Chest Chest: normal inspection of the chest Resp Effort & Inspection: normal respiratory effort Cardio Rate: regular rate GI Inspection: normal to inspection Skin General: no rashes or lesions noted and No jaundice Neuro General: patient alert and moves all extremities Cognition: normal cognition Speech: speech normal Extrem General: no pedal edema Psych Appearance: grossly normal Assessment & Plan Assessment & Plan narrative: 46-year-old female with symptoms of abdominal pain abdominal fullness altered bowel habits with both diarrhea and constipation. She has lost weight as well. EGD D and colonoscopy are pursued today. Time Spent With Patient Critical Care time: I spent a total of [] minutes of critical care time on this patient's care today; this time is exclusive of procedural time.
--- NOTE | 2021-09-09 08:32 | PM.PREOP ---
Pre-operative Note COVID-19 COVID-19 status: Negative Result date/Date tested (Pos, Neg/Pending): 09/08/21 Interval Note History & Physical reviewed/Exam performed by Physician: Yes Changes to H&P: No ASA Class (for procedural sedation): III
--- NOTE | 2021-09-09 09:39 | PM.OP.EC ---
Operative Date/Time/Diagnoses Date of procedure: 09/09/21 Time of procedure: 09:39 Pre-op diagnosis: Abdominal pain altered bowel habit weight loss abnormal imaging Post-op diagnosis: same Procedure & Clinicians Study performed: EGD with biopsies and a colonoscopy with biopsies Same procedure as scheduled: Yes Indications: Abdominal pain altered bowel habit diarrhea weight loss abnormal imaging Surgeon: Seth Rice Procedure Notes SCOAP/Timeout: Done Procedure in detail: After the risks and benefits were explained, written and verbal informed consent was obtained. The patient was brought into the procedure room and placed into the left lateral decubitus position. Please see nurse therapeutic recreation assistant notes for sedation details. The scope was introduced into the mouth through the bite block and advanced under direct visualization to the 2nd portion of the duodenum. The scope was slowly withdrawn carefully examining the mucosa for any defects or lesions. Retroflexed views were accomplished in the stomach. The stomach was decompressed, the scope was then removed from the patient who tolerated the procedure well. The patient was then turned around a digital rectal examination accomplished no significant pathology appreciated the scope was introduced into the rectum and advanced to the cecum as identified by the appendiceal orifice and ileocecal valve. The terminal ileum was interrogated the scope then slowly withdrawn to carefully examine the mucosa for any defects or lesions. Multiple direct views were made through the dentate line for exclusion of pathology the colon was decompressed scope removed the patient tolerated the procedure well. Bowel prep adequate Adult colonoscope Scope withdrawal time: 12 minutes Sedation minutes: 33 Complications: none Impression: 1. Duodenum: This was visually normal from the bulb through the 2nd portion. Random biopsies were taken from the 2nd portion for exclusion of sprue. 2. Stomach: The patient had some streaky and subtly nodular erythema in the antrum. No ulcers no outlet obstruction no mass lesion. Otherwise patient had a mild diffuse gastropathy. I took antral biopsies and then biopsies from the body and submitted them separately. Retroflexed views of the LES were unremarkable. 3. Esophagus: The squamocolumnar junction correlated with the top of the gastric folds. GEJ was at 40 cm from the incisors. No acute erosive changes no strictures no mass lesions. The remainder of the esophagus was unremarkable. 4. Colon: No evidence of any procto colitis throughout. No significant polyps or mass lesions. In light of the patient's symptoms random colon biopsies were taken for exclusion of microscopic disease. 5. Terminal ileum: Generally the mucosa appeared within normal limits. There were a couple of very subtle erosive features but otherwise the villi were very well preserved. I took couple of biopsies from the subtle eroded areas. Endoscopic diagnosis 1. Gastropathy 2. Otherwise visually unremarkable EGD 3. Visually normal colonoscopy 4. Subtle possible terminal ileal erosions-biopsied Post-procedure Plan for aftercare: 1. Await histopathology 2. Follow-up GI clinic with Disposition: PACU
[2021-09-09 09:42] VITALS: BP 136/90; PULSE 76; RESP 16; TEMP 36.1; O2SAT 97
[2021-09-09 09:46] VITALS: BP 137/93; PULSE 71; RESP 12; O2SAT 98
[2021-09-09 09:52] VITALS: BP 139/93; PULSE 62; RESP 13; O2SAT 99
[2021-09-09 09:57] VITALS: BP 138/92; PULSE 66; RESP 14; TEMP 36.1; O2SAT 97
[2021-09-09 10:04] VITALS: BP 131/96; PULSE 64; RESP 12; TEMP 36.1; O2SAT 99
== END 2021-09-09 10:20 | disposition home or self-care (01) ==
PROVIDERS: Family Provider Physician Assistant; PCP Family Medicine; Referring Provider Internal Medicine Gastroenterology; Visit Provider Internal Medicine Gastroenterology
PROC: 0DJ08ZZ Inspection of Upper Intestinal Tract, Via Natural or Artificial Opening Endoscopic (ICD-10-PCS; CPT 43235; principal; 2021-09-09 09:00)
PROC: 0DJD8ZZ Inspection of Lower Intestinal Tract, Via Natural or Artificial Opening Endoscopic (ICD-10-PCS; CPT 45378; 2021-09-09 09:00)
DX: K52.9 Noninfective gastroenteritis and colitis, unspecified (principal); R63.4 Abnormal weight loss; R11.0 Nausea; R93.3 Abnormal findings on diagnostic imaging of other parts of digestive tract; K31.9 Disease of stomach and duodenum, unspecified; K29.50 Unspecified chronic gastritis without bleeding
CPT/HCPCS: 45380; 43239; J2405; J2704

== ENCOUNTER → 2021-10-07 10:27 | Outpatient (CLI) | payer OTHER, SELFPAY ==
[2021-05-23 13:41] VITALS: BMI 43.5
--- NOTE | 2021-10-07 | DI.US.S_ITS ---
ULTRASOUND OF RIGHT BREAST AND AXILLA: 10/07/2021 CLINICAL: Evaluate for right axilla lymphadenopathy. Comparison is made to exams dated: 04/12/2021 mammogram and 10/07/2021 [facility]. Color flow and real-time ultrasound of the right breast axilla were performed. Ramos scale images of the real-time examination were reviewed. There is a 3.5 cm x 4.3 cm x 1.5 cm enlarged lymph node with uniform cortical thickening in the right axilla. This enlarged lymph node displays fatty hilum. Cortex measures 0.5 cm. There is an adjacent enlarged right axillary node with a short axis diameter of 1.5 cm. IMPRESSION: PROBABLY BENIGN The 3.5 cm x 4.3 cm x 1.5 cm enlarged lymph node with uniform cortical thickening is probably benign. A follow-up ultrasound in 6 months is recommended to demonstrate stability. Exam findings were discussed with the patient. Patient is advised to monitor for significant change. Clinical follow-up is recommended. Of note, decision was made to biopsy an enlarged left axillary node. This exam was interpreted at Station ID: [id number]. Electronically Signed By: Pradip Mckenzie M.D. [facility] [place]/:10/07/2021 12:08:31 Entry: - 10/08/2021 10:16:51 Ultrasound BI-RADS: 3 Probably benign
--- NOTE | 2021-10-07 10:28 | DI.US.S_ITS ---
ULTRASOUND OF LEFT BREAST AND AXILLA: 10/07/2021 CLINICAL: Left axilla 3 month follow up lymphnodes. Comparison is made to exams dated: 07/07/2021 ultrasound, 04/16/2021 ultrasound, and 04/12/2021 mammogram [facility]. Color flow and real-time ultrasound of the left breast axilla were performed. Ramos scale images of the real-time examination were reviewed. There is a 4.1 cm x 1.8 cm oval lymph node with uniform cortical thickening with a circumscribed margin in the left axillary tail. This oval lymph node displays fatty hilum. This correlates as palpated. Cortex measure 0.6 cm. Overall this node is increased in size. There are at least two additional enlarged left axillary nodes. IMPRESSION: SUSPICIOUS OF MALIGNANCY The persistent 4.1 cm oval lymph node with uniform cortical thickening is at a low suspicion for malignancy. This could be due to metastatic disease, lymphoma, or reactive. An ultrasound guided biopsy is recommended. Exam findings were discussed with the patient. Discussion was held on biopsy versus continued imaging surveillance. The patient would like to proceed to biopsy. Of note, there are enlarged right axillary nodes. This exam was interpreted at Station ID: [id number]. Electronically Signed By: Pradip Mckenzie M.D. slc/:10/07/2021 12:03:06 letter sent: Biopsy Required Ultrasound BI-RADS: 4a Low suspicion for malignancy
== END ==
PROVIDERS: Family Provider Physician Assistant; PCP Family Medicine; Referring Provider Registered Nurse; Visit Provider Registered Nurse
DX: R59.0 Localized enlarged lymph nodes (principal); R92.8 Other abnormal and inconclusive findings on diagnostic imaging of breast
CPT/HCPCS: 76882

== ENCOUNTER → 2021-10-17 10:06 | Outpatient (CLI) | payer OTHER, SELFPAY ==
[2021-05-23 13:41] VITALS: BMI 43.5
--- NOTE | 2021-10-17 | PATH_ITS ---
Note [facility] Accession Number: [id number] TESTS RESULT FLAG UNITS REF RANGE LAB Clinician Provided Cytology Information No. of containers..01 Other (Miscellaneous) Source: LEFT AXILLARY LYMPH NODE DIAGNOSIS: LEFT AXILLARY LYMPH NODE, FINE NEEDLE ASPIRATION. NEGATIVE FOR MALIGNANT CELLS. FAVOR REACTIVE LYMPH NODE SAMPLING, SEE COMMENT. COMMENT: EXAMINATION OF THE THIN PREP SLIDE REVEALS A MATURE AND MIXED POLYMORPHOUS LYMPHOCYTE POPULATION. LARGE OR ATYPICAL LYMPHOCYTES (HODGKIN OR HODGKIN-LIKE) ARE NOT SEEN. THERE IS NO EVIDENCE OF GRANULOMATOUS INFLAMMATION. THERE IS NO EVIDENCE OF METASTATIC MALIGNANCY. OVERALL, THE FINDINGS FAVOR BENIGN/REACTIVE LYMPH NODE. IN ADDITION, CONCURRENT FLOW CYTOMETRIC ANALYSIS DID NOT DETECT AN ABNORMAL B-CELL OR T-CELL POPULATION (SEE REPORT [id number], FOR DETAILS). FALSE NEGATIVE RESULTS MAY OCCUR IN PARTIAL SAMPLING OF LYMPH NODES. THEREFORE CLINICAL/RADIOLOGIC CORRELATION AND APPROPRIATE FOLLOW UP IS ADVISED. IF THE LYMPH NODE APPEARS SUSPICIOUS OR REMAINS ENLARGED, EXCISION MAY BE RECOMMENDED FOR DEFINITIVE HISTOLOGIC EXAMINATION. Pathologist ICD10: 01 R59.0 Signed out by: Chica Edgar MD, Pathologist NPI- [id number] Performed by: Maldonado Waters, Mechanical Service Specialist ([facility]) Gross description: 30 CC, COLORLESS, CLEAR RECIEVED: IN CYTOLYT WITH BLUE CAP CONTAINER. /VD 10/20/2021 0950 Local FLAG LEGEND: L-Low Normal,H-High Normal,LL-Alert Low,HH-Alert High <-Panic Low,>-Panic High,A-Abnormal,AA-Critical Abnormal Performed at: 01 =Z [facility] [address], [place] [address] Lm Camarillo MD, Performed at: 01 [facility] [address], [place], [place] [id number] MD Lm Camarillo MD Phone: [phone]
--- NOTE | 2021-10-17 10:07 | DI.US.S_ITS ---
PROCEDURE: US BIOPSY LT AXILLA 1. Ultrasound guided biopsy of left axillary nodule INDICATIONS: 1 question left axillary lymph node versus lipoma. PROCEDURAL PHYSICIAN: Da Tejada M.D. COMPARISON:[facility] AXILLARY ONLY LT, 10/07/2021, 10:30. [facility] AXILLARY ONLY LT, 07/07/2021, 13:09. TECHNIQUE: The indications, alternatives, benefits, risks, and complications of the procedure were explained to the patient and any family members present. Informed written consent was obtained and placed in the chart. The patient was sterilely prepped and draped. 1% lidocaine was used as a local anesthetic. Under ultrasound guidance, the presumed left axillary lymph node was targeted. Four 20 gauge Bard biopsy cores were obtained. Samples were placed in both formalin and RPMI solution. 325 gauge FNAs were obtained, and samples were placed in both CytoLyt and formalin. The patient tolerated the procedure well with no immediate complications noted. FINDINGS: The previously described left axillary nodule, which is presumed to represent a lymph node, was again noted. It measured approximately 3.8 x 1.6 cm in diameter. It had extensive fat within it. It was sampled with a combination of 4 core biopsies utilizing a 20 gauge needle and 3 FNAs using a 25 gauge needle. IMPRESSION: 1. Technically successful ultrasound-guided biopsy and FNA of a presumed left axillary lymph node. Samples were placed in RPMI solution as well as in formalin and CytoLyt. Dictated by: Kavon Tejada M.D. on 10/17/2021 at 12:36 Approved by: Kavon Tejada M.D. on 10/17/2021 at 12:41
== END ==
LOC: US 10:06
PROVIDERS: Family Provider Physician Assistant; PCP Family Medicine; Referring Provider Registered Nurse; Visit Provider Registered Nurse
DX: R59.0 Localized enlarged lymph nodes (principal)
CPT/HCPCS: 38505; 76942

== ENCOUNTER → 2021-12-22 11:31 | Outpatient (CLI) | payer OTHER, SELFPAY ==
[2021-05-23 13:41] VITALS: BMI 43.5
[2021-12-22 13:23] LABS: Add Manual Diff / Slide Review NO; Basophils Absolute Auto 0 /uL (0-100); Basophils Percent Auto 0.5 % (0-2); Eosinophils Absolute Auto 600 /uL (0-450); Eosinophils Percent Auto 6.2 % (2-4); Hematocrit 40.9 % (36-46); Hemoglobin 13.8 g/dL (12.0-16.0); Lymphocytes Absolute Auto 2200 /uL (1100-4500); Lymphocytes Percent Auto 24.8 % (25-40); Mean Corpuscular HGB Conc 33.7 % (30-36); Mean Corpuscular Hemoglobin 31.2 PG (26-34); Mean Corpuscular Volume 92.4 fL (80-100); Monocytes Absolute Auto 500 /uL (0-900); Monocytes Percent Auto 6.1 % (3-14); Neutrophils Absolute Auto 5500 /uL (1500-7000); Neutrophils Percent Auto 62.4 % (50-75); Platelet Count 254 X10^3/uL (150-400); Red Blood Cell Count 4.42 X10^6/uL (4.0-5.2); Red Cell Distribution Width 13.4 % (11.6-14.8); White Blood Cell Count 8.9 X10^3/uL (4.5-11.0)
[2021-12-22 13:45] LABS: Alanine Aminotransferase 30 IU/L (<35); Albumin 4.5 g/dL (3.5-5.0); Albumin Globulin Ratio 1.4 (1.0-2.8); Alkaline Phosphatase 80 U/L (38-126); Aspartate Aminotransferase 24 IU/L (14-36); BUN Creatinine Ratio 17.6 (6-22); Bilirubin Total 0.5 mg/dL (0.2-1.3); Blood Urea Nitrogen 15 mg/dL (7-17); C-Reactive Protein Quant 2.3 mg/dL (<1.0); Calcium 9.2 mg/dL (8.4-10.2); Carbon Dioxide 27 mmol/L (22-32); Chloride 105 mmol/L (98-107); Estimated Glomerular Filt Rate > 60.0 mL/min (>60); Globulin 3.3 g/dL (1.7-4.1); Glucose 97 mg/dL (70-100); HEMOLYSIS < 15 (0-50); Potassium 4.5 mmol/L (3.4-5.1); Sodium 140 mmol/L (137-145); Total Protein 7.8 g/dL (6.3-8.2)
[2021-12-22 14:19] LABS: Thyroid Stimulating Hormone 0.911 uIU/mL (0.47-4.68)
== END ==
PROVIDERS: PCP Registered Nurse; Referring Provider Internal Medicine; Visit Provider Internal Medicine
DX: R10.30 Lower abdominal pain, unspecified (principal)
CPT/HCPCS: 36415; 80053; 82306; 84443; 85025; 86140

== ENCOUNTER → 2022-02-05 09:52 | Outpatient (CLI) | payer OTHER, SELFPAY ==
[2021-05-23 13:41] VITALS: BMI 43.5
--- NOTE | 2022-02-05 09:53 | DI.US.S_ITS ---
ULTRASOUND OF LEFT BREAST: 02/05/2022 CLINICAL: Short term follow up for the left axilla. Comparison is made to exams dated: 10/17/2021 ultrasound biopsy, 10/07/2021 ultrasound, 07/07/2021 ultrasound, 04/16/2021 ultrasound, and 04/12/2021 mammogram - [facility]. Color flow and real-time ultrasound of the left breast were performed. Enlarged left axillary lymph nodes are again seen and are slightly smaller, the largest measuring 3.8 x 1.2 x 1.4 cm. This is relatively unchanged compared to prior ultrasounds as far back as 04/16/2021. IMPRESSION: BENIGN There is no sonographic evidence of malignancy. If there is concern for other pathology such as lymphoma consider further workup such is chest CT, however axillary lymph nodes are enlarged but stable since 04/16/2021. Recommend return to annual screening mammogram. This exam was interpreted at Station ID: [id number]. Electronically Signed By: Jimmie Tai acr/:02/05/2022 10:49:09 letter sent: Normal Exam Ultrasound BI-RADS: 2 Benign
== END ==
PROVIDERS: PCP Family Medicine; Referring Provider Internal Medicine Hematology & Oncology; Visit Provider Internal Medicine Hematology & Oncology
DX: R59.0 Localized enlarged lymph nodes (principal); R92.8 Other abnormal and inconclusive findings on diagnostic imaging of breast
CPT/HCPCS: 76882

== ENCOUNTER → 2022-06-29 09:35 | Outpatient (CLI) | payer OTHER, SELFPAY ==
[2021-05-23 13:41] VITALS: BMI 43.5
[2022-06-29 09:55] LABS: Add Manual Diff / Slide Review NO; Basophils Absolute Auto 100 /uL (0-100); Basophils Percent Auto 0.8 % (0-2); Eosinophils Absolute Auto 1100 /uL (0-450); Eosinophils Percent Auto 10.2 % (2-4); Hematocrit 40.7 % (36-46); Hemoglobin 13.7 g/dL (12.0-16.0); Lymphocytes Absolute Auto 1800 /uL (1100-4500); Lymphocytes Percent Auto 17.2 % (25-40); Mean Corpuscular HGB Conc 33.5 % (30-36); Mean Corpuscular Hemoglobin 31.2 PG (26-34); Mean Corpuscular Volume 92.9 fL (80-100); Monocytes Absolute Auto 700 /uL (0-900); Monocytes Percent Auto 6.2 % (3-14); Neutrophils Absolute Auto 7000 /uL (1500-7000); Neutrophils Percent Auto 65.6 % (50-75); Platelet Count 264 X10^3/uL (150-400); Red Blood Cell Count 4.38 X10^6/uL (4.0-5.2); Red Cell Distribution Width 13.3 % (11.6-14.8); White Blood Cell Count 10.6 X10^3/uL (4.5-11.0)
[2022-06-29 10:12] LABS: Alanine Aminotransferase 24 IU/L (<35); Albumin Globulin Ratio 1.2 (1.0-2.8); Alkaline Phosphatase 77 U/L (38-126); Aspartate Aminotransferase 19 IU/L (14-36); BUN Creatinine Ratio 16.1 (6-22); Bilirubin Total 0.5 mg/dL (0.2-1.3); Blood Urea Nitrogen 14 mg/dL (7-17); Calcium 8.9 mg/dL (8.4-10.2); Carbon Dioxide 27 mmol/L (22-32); Chloride 103 mmol/L (98-107); Estimated Glomerular Filt Rate > 60 mL/min (>60); Globulin 3.4 g/dL (1.7-4.1); Glucose 140 mg/dL (70-100); HEMOLYSIS < 15 (0-50); Lactate Dehydrogenase 333 U/L (313-618); Potassium 4.3 mmol/L (3.4-5.1); Sodium 138 mmol/L (137-145); Total Protein 7.4 g/dL (6.3-8.2)
[2022-06-29 10:13] LABS: Cholesterol 163 mg/dL (140-199); HDL Cholesterol 34 mg/dL (40-60); LDL Cholesterol Calculated 108 mg/dL (<100); Triglycerides 103 mg/dL (35-150)
[2022-06-29 10:34] LABS: Vitamin D 25 Hydroxy (D3) 38.6 ng/mL (30.0-100.0)
[2022-07-02 03:42] LABS: QuantiFERON Mitogen Value >10.00 IU/mL (.); QuantiFERON Nil Value 0.01 IU/mL (.); QuantiFERON TB Gold Plus Negative (Negative); QuantiFERON TB1 Ag Value 0.01 IU/mL (.); QuantiFERON TB2 Ag Value 0.01 IU/mL (.)
[2022-07-02 04:24] LABS: Beta-2-Microglobulin 1.8 mg/L (0.6-2.4)
== END ==
PROVIDERS: Internal Medicine Hematology & Oncology; PCP Family Medicine; Referring Provider Dermatology; Visit Provider Dermatology
DX: L40.0 Psoriasis vulgaris (principal); K76.0 Fatty (change of) liver, not elsewhere classified; Z68.41 Body mass index [BMI] 40.0-44.9, adult; R59.0 Localized enlarged lymph nodes
CPT/HCPCS: 36415; 80053; 80061; 82232; 82306; 83615; 85025; 86480

== ENCOUNTER 2022-11-20 12:22 | Emergency (ER) | payer OTHER, SELFPAY ==
[2021-05-23 13:41] VITALS: BMI 43.5
[2022-11-20 12:51] VITALS: BP 145/98; PULSE 112; RESP 20; TEMP 36.9; O2SAT 97; BMI 41.5
--- NOTE | 2022-11-20 13:41 | DI.RAD.S_ITS ---
PROCEDURE: XR SHOULDER LT MIN 2V INDICATIONS: hx cancer, eval for bony/abnormality TECHNIQUE: 3 views of the shoulder were acquired. COMPARISON: None. FINDINGS: Bones: No fractures or dislocations. No suspicious bony lesions. Visualized ribs appear intact. Soft tissues: No suspicious soft tissue calcifications. IMPRESSION: No shoulder fracture or dislocation. No suspicious bony lesions. No gross shoulder soft tissue abnormality is seen. Dictated by: Isidro Vaughan M.D. on 11/20/2022 at 14:15 Approved by: Isidro Vaughan M.D. on 11/20/2022 at 14:15
--- NOTE | 2022-11-20 14:18 | ED.UPPEXIN ---
HPI - Extremity Injury (Upper) <Brea Wan PA-C - Last Filed: 11/20/22 16:33> General Chief Complaint: Extremity Injury, Upper Stated Complaint: Left should pain x2 weeks Time Seen by Provider: 11/20/22 13:40 Source: patient Mode of arrival: Ambulatory History of Present Illness HPI narrative: Patient is a tearful 47-year-old female with complaint of severe left shoulder pain after sneeze yesterday. Her medical history is significant for psoriatic arthritis for which she sees Dr. Cordon in addition to fibromyalgia. She reports that 3 weeks ago she noted pain in her left shoulder, followed up with Dr. Cordon, received bilateral shoulder x-rays. Her pain did not improve, so 1 week later she received a cortisone shot in her left shoulder. Yesterday, she reports that she sneezed and felt her pain immediately increase in her left shoulder. She noted ? arm? in her left arm after the pain started for a few minutes. Since then she has noted numbness in her 3 outer fingers in her left arm. She notes that numbness worsens when she supinates her left arm. She also notes significant pain over her left upper neck, left shoulder blade, an anterior shoulder. She reports that the anterior shoulder pain is improved with pressure. She denies any trauma. She denies any kidney issues. She does note she is on Humira, celecoxib, and cyclobenzaprine. She reports hysterectomy. Review of records from oncologist Dr. Pearson from last June shows previous workup of enlarged left axillary lymph node which was biopsied without signs of lymphoma. Review of Dr. Cordon's notes are consistent with her report of her left axillary pain and treatment at that time. Related Data Previous Rx's Medication Instructions Recorded fluticasone propionate 50 1 spray intranasal DAILY #19.8 mL 07/21/ mcg/actuation nasal spray,suspension (Flonase Allergy Relief) clobetasol 0.05 % scalp solution 1 applic topical BID apply to 04/08/21 scalp 2 weeks #25 mL albuterol sulfate 90 mcg/actuation 2 puff inhalation Q6H PRN 08/19/21 aerosol inhaler (ProAir HFA) shortness of breath #18 grams cholecalciferol (vitamin D3) 1,250 1,250 mcg PO QWEEK #8 tabs 12/23/21 mcg (50,000 unit) tablet fluticasone propionate 45 See Rx Instructions .Route 04/27/22 mcg-salmeterol 21 mcg/actuation .COMPLEX #12 grams HFA inhaler (Advair HFA) benzonatate 100 mg capsule 100 mg PO BID PRN cough #20 caps 06/17/22 cyclobenzaprine 10 mg tablet See Rx Instructions .Route 11/09/22 .COMPLEX #90 tabs Allergies Allergy/AdvReac Type Severity Reaction Status Date / Time No Known Drug Allergies Allergy Verified 06/17/22 13:55 Review of Systems <Brea Wan PA-C - Last Filed: 11/20/22 16:33> Review of Systems Narrative: Per HPI Patient History <Brea Wan PA-C - Last Filed: 11/20/22 16:33> Medical History (Updated 11/20/22 @ 15:25 by Brea Wan PA-C) Abdominal pain Abnormal mammogram Abnormal ultrasound ADHD (~1985) Anemia, unspecified Anxiety Appetite loss Arm pain Asperger syndrome Autism (~1995) BMI 40.0-44.9, adult Bruise Bruising Cervical cancer screening Chronic pain of left knee Cough Crohn's disease Emesis Fibromyalgia (~2007) Frequent loose stools Irritable bowel syndrome (~1993) Lump Lung infection Nausea Nausea Nocturnal leg cramps Ovarian cyst (~1999) Psoriatic arthritis (~2015) Seizures (~2004) Somatic dysfunction of lower extremity Vaginal spotting Surgical History (Updated 07/20/22 @ 14:32 by Mary Mcwilliams MD) Anesthesia History of cholecystectomy (~2004) History of knee surgery (~2004) Hx of hysterectomy Family History Father Esophageal cancer Mother Poor health Breast cancer Family/Other Breast cancer Family/Other Lymphoma Social History household members: spouse and children Smoking Status: Never smoker alcohol intake: never substance use type: marijuana (edible at night ) Smoking Status: Never smoker alcohol intake frequency: holidays/special occasions only Substance Use Type: marijuana Exam <Brea Wan PA-C - Last Filed: 11/20/22 16:33> Narrative Exam Narrative: GENERAL: 47 year old patient appears stated age. Well-developed patient, crying and in some distress. HEAD: Atraumatic. Normocephalic. EYES: Pupils equal round and reactive. Extraocular motions intact. No scleral icterus. No injection or drainage. CARDIOVASCULAR: Regular rate and rhythm without murmurs, gallops, or rubs. RESPIRATORY: Clear to auscultation. Breath sounds equal bilaterally. No wheezes, rales, or rhonchi. pain with inspiration of breath EXTREMITIES: Left shoulder is acutely tender to touch in anterior aspect just above axilla, as well as posteriorly over scapula, over left trapezius. She endorses pain as well over skin over cervical spine. No erythema noted covering skin of shoulder or anterior axilla. After toradol, methocarbamol and topical lidocaine, she is able to abduct left arm to 90 deg, forward flexion to 90 deg, and extension intact, unable to flex or abduct beyond due to pain, right arm has full abduction forward flexion and extension above 90?. 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 Numbness in lateral 3 fingers worsened with supination. BACK: Without deformity or crepitance. No flank tenderness. Some tenderness over cervical spine, Nontender over thoracic, lumbar spine NEURO: AOx3. SKIN: No rash or erythema of visible areas Initial Vital Signs Initial Vital Signs: Vital Signs Temperature 98.5 F 11/20/22 12:51 Pulse Rate 112 H 11/20/22 12:51 Respiratory Rate 20 11/20/22 12:51 Blood Pressure 145/98 H 11/20/22 12:51 Pulse Oximetry 97 11/20/22 12:51 Oxygen Delivery Method 11/20/22 12:51 <Félix Stiles MD - Last Filed: 11/24/22 07:53> Initial Vital Signs Initial Vital Signs: Vital Signs Temperature 98.5 F 11/20/22 12:51 Pulse Rate 112 H 11/20/22 12:51 Respiratory Rate 20 11/20/22 12:51 Blood Pressure 145/98 H 11/20/22 12:51 Pulse Oximetry 97 11/20/22 12:51 Oxygen Delivery Method 11/20/22 12:51 Course <Brea Wan PA-C - Last Filed: 11/20/22 16:33> Orders Ordered: Discontinued Medications Acetaminophen (Acetaminophen 325 Mg Tablet) 650 mg PO Q6H PRN PRN Reason: Fever/Mild Pain (1-3) Last Admin: 11/20/22 14:34 Dose: 650 mg Documented By: PEDRO LUIS Ketorolac Tromethamine (Ketorolac 30 Mg/Ml Vial) 30 mg IM NOW ONE Stop: 11/20/22 14:13 Last Admin: 11/20/22 14:34 Dose: 30 mg Documented By: PEDRO LUIS Lidocaine (Lidocaine Patch 1 Each Adh..Patch) 1 each TOP NOW ONE Stop: 11/20/22 14:15 Last Admin: 11/20/22 14:35 Dose: 1 each Documented By: PEDRO LUIS Methocarbamol (Methocarbamol 500 Mg Tablet) 750 mg PO NOW ONE Stop: 11/20/22 14:15 Last Admin: 11/20/22 14:34 Dose: 750 mg Documented By: PEDRO LUIS Vital Signs Vital signs: Vital Signs - 8 hr 11/20/22 12:51 Temperature 98.5 F Pulse Rate 112 H Respiratory Rate 20 Blood Pressure 145/98 H Pulse Oximetry 97 Oxygen Delivery Method Room Air <Félix Stiles MD - Last Filed: 11/24/22 07:53> Orders Ordered: Discontinued Medications Acetaminophen (Acetaminophen 325 Mg Tablet) 650 mg PO Q6H PRN PRN Reason: Fever/Mild Pain (1-3) Last Admin: 11/20/22 14:34 Dose: 650 mg Documented By: PEDRO LUIS Ketorolac Tromethamine (Ketorolac 30 Mg/Ml Vial) 30 mg IM NOW ONE Stop: 11/20/22 14:13 Last Admin: 11/20/22 14:34 Dose: 30 mg Documented By: PEDRO LUIS Lidocaine (Lidocaine Patch 1 Each Adh..Patch) 1 each TOP NOW ONE Stop: 11/20/22 14:15 Last Admin: 11/20/22 14:35 Dose: 1 each Documented By: PEDR OLUIS Methocarbamol (Methocarbamol 500 Mg Tablet) 750 mg PO NOW ONE Stop: 11/20/22 14:15 Last Admin: 11/20/22 14:34 Dose: 750 mg Documented By: PEDRO LUIS Vital Signs Vital signs: Vital Signs - 8 hr 11/20/22 12:51 Temperature 98.5 F Pulse Rate 112 H Respiratory Rate 20 Blood Pressure 145/98 H Pulse Oximetry 97 Oxygen Delivery Method Room Air MDM - Extremity Injury (Upper) <Brea Wan PA-C - Last Filed: 11/20/22 16:33> [facility] Narrative Medical decision making narrative: CC: Left shoulder pain worsening last night after sneeze. Previous left shoulder pain x3 weeks, evaluated by distribution systems superintendent Dr. Cordon, and treated by cortisone shot. Complicating co-morbidities: Psoriatic arthritis, fibromyalgia, chronic steroid use Corroborating data: Reviewed patient's screen shot of shoulder x-ray analysis from 2 weeks ago which did not show any bony abnormality other than degenerative changes in the right shoulder. Reviewed oncology note from Dr. Pearson from last June which discussed that left axillary lymph node had receded in size, and biopsy did not show lymphoma.Reviewed Dr. Renee was note from November 13 which showed normal shoulder x-ray which patient had discussed, and administration of cortisone shot. Data collected from: patient, Social determinants of health that may influence the patients condition: Medical records reviewed: X-ray analysis from distribution systems superintendent 3 weeks ago. Xray in office Differential diagnoses considered: Muscle spasm, septic arthritis, fibromyalgia flare, psoriatic arthritis flare Exam documented above, pertinent findings include: Imaging studies independently reviewed: Shoulder xray today shows No shoulder fracture or dislocation. No suspicious bony lesions. No gross shoulder soft tissue abnormality is seen. Consultations: Discussed with Rossy Arita NP. Treatments: Topical lidocaine, methocarbamol, Toradol 30 mg, discussed possibility of opiate, she defers. Re-evaluations: Saw patient after administration of lidocaine and methocarbamol and Toradol. She reports some improvement in her pain, but still says that it is quite significant. She notes a level of 8 in her pain. She is able to abduct arm to 90 deg, forward flexion to 90 deg, and extension intact. Discussion: Discussed with patient that in light of negative shoulder x-rays and no mechanism of injury, it is most likely that her pain is due to a muscle spasm which may be involved in a greater inflammatory flare-up. I recommend that she take 800 mg of ibuprofen 3 times daily with a large glass of water and after food instead of celecoxib for the next several days. In addition, I recommend she continue topical lidocaine along with heat, and small gentle exercises to keep her shoulder from freezing up. I recommend that she follow up with Dr. Cordon as well to discuss whether steroids or an appropriate option given her concurrent Humira treatment. We discussed concerning signs and symptoms of other diagnoses including septic arthritis which may show fever, erythema over her shoulder. Please follow up in the ER if there are any other concerning symptoms developing. Disposition: see below, along with detailed discharge instructions that have been reviewed with patient as well as indications for ED re-evaluation and additional outpatient follow up Discharge Plan Departure Patient Disposition: Home Clinical Impression: Muscle spasm of left shoulder Activity Restrictions/Additional Instructions: We discussed that in light of negative shoulder x-rays and no mechanism of injury, it is most likely that your pain is due to a muscle spasm which may be involved in a greater inflammatory flare-up. I recommend that you take 800 mg of ibuprofen 3 times daily with a large glass of water and after food instead of celecoxib for the next several days. In addition, I recommend you continue topical lidocaine along with heat, muscle relaxers, and small gentle exercises to keep your shoulder from freezing up. I recommend that you follow up with Dr. Cordon as well to discuss whether steroids or an appropriate option given your concurrent Humira treatment. We discussed concerning signs and symptoms of other diagnoses including septic arthritis which may show fever, erythema over your shoulder. Please follow up in the ER if there are any other concerning symptoms developing. You have deferred opioid treatment today as adjunct pain treatment. Prescriptions: No Action benzonatate 100 mg capsule 100 mg PO BID PRN (Reason: cough) Qty: 20 0RF clobetasol 0.05 % solution 1 applic topical BID 14 Days Qty: 25 1RF cholecalciferol (vitamin D3) 1,250 mcg (50,000 unit) tablet 1,250 mcg PO QWEEK Qty: 8 0RF Advair HFA 45-21 mcg/actuation HFA aerosol inhaler See Rx Instructions .ROUTE .COMPLEX Qty: 12 11RF Dose Instruction: INHALE 2 PUFFS INTO THE LUNGS TWICE DAILY FOR ASTHMA Rx Instructions: INHALE 2 PUFFS INTO THE LUNGS TWICE DAILY FOR ASTHMA cyclobenzaprine 10 mg tablet See Rx Instructions .ROUTE .COMPLEX Qty: 90 0RF Dose Instruction: TAKE 1 TABLET BY MOUTH THREE TIMES DAILY NEEDED FOR MUSCLE SPASM Rx Instructions: TAKE 1 TABLET BY MOUTH THREE TIMES DAILY NEEDED FOR MUSCLE SPASM fluticasone propionate [Flonase Allergy Relief] 50 mcg/actuation spray,suspension 1 spray NASAL DAILY Qty: 19.8 0RF Rx Instructions: administer into each nostril albuterol sulfate [ProAir HFA] 90 mcg/actuation HFA aerosol inhaler 2 puff INHALATION Q6H PRN (Reason: shortness of breath) Qty: 18 2RF Referrals: Saman Rainey DO [Primary Care Provider] - Stand Alone Forms: Patient Portal/API <Félix Stiles MD - Last Filed: 11/24/22 07:53> Cosign ED Attending Cosjaquelineature Attestation: I was immediately available in the department for consultation. ?This documentation has been reviewed and I agree with assessment and plan. Supervised by Félix Stiles MD
[2022-11-20] MEDS: methocarbamoL 500 MG TABLET 750 MG PO (14:34)
[2022-11-20] MEDS: ACETAMINOPHEN 325 MG TABLET 650 MG PO (14:34)
[2022-11-20] MEDS: KETOROLAC 30 MG/ML VIAL IM (14:34)
[2022-11-20] MEDS: LIDOCAINE PATCH 1 EACH ADH..PATCH TOP (14:35)
--- NOTE | 2022-11-20 14:39 | PC.NURSE ---
Urine preg test dicontinued per Provider Crew because patient reports prior hysterectomy.
== END 2022-11-20 15:30 | disposition home or self-care (01) ==
PROVIDERS: Emergency Provider Physician Assistant; PCP Family Medicine
DX: M62.838 Other muscle spasm (principal)
CPT/HCPCS: 73030; 96372; 99283; 99284; J1885

== ENCOUNTER 2023-08-24 17:41 | Emergency (ER) | payer OTHER, SELFPAY ==
[2021-05-23 13:41] VITALS: BMI 43.5
[2023-08-24] VITALS (12 sets, daily range): BP systolic 115–144; BP diastolic 58–78; PULSE 76–99; RESP 15–26; TEMP 37.1; O2SAT 93–95; BMI 34.9
--- NOTE | 2023-08-24 17:46 | DI.RAD.S_ITS ---
PROCEDURE: XR CHEST 2V INDICATIONS: cough,chest pain (burning) TECHNIQUE: 2 views of the chest were acquired. COMPARISON: [facility], CR, XR CHEST 2V, 04/01/2021, 16:29. FINDINGS: Surgical changes and devices: None. Lungs and pleura: Lungs are clear. No pleural effusions or pneumothorax. Mediastinum: Mediastinal contours are normal. Heart size is normal. Bones and chest wall: No suspicious bony abnormalities. Soft tissues appear unremarkable. IMPRESSION: No acute cardiopulmonary abnormality is seen. Dictated by: Lashon Dorantes M.D. on 08/24/2023 at 17:59 Approved by: Lashon Dorantes M.D. on 08/24/2023 at 18:00
--- NOTE | 2023-08-24 18:03 | PC.NURSE ---
Pt states that she recently had respiratory illness and now feels burning when she inhales. Pt describes burning like inahling hot coals into her lujngs. A&Ox4.
--- NOTE | 2023-08-24 18:08 | ED_ITS ---
HPI - General Adult General Chief complaint: Upper Respiratory Symptoms Stated complaint: burning lungs dizzy x1 day Time Seen by Provider: 08/24/23 18:07 Source: patient Mode of arrival: Ambulatory History of Present Illness HPI narrative: 48-year-old woman with a history of both psoriatic arthritis and Crohn's disease she is on methotrexate and Humira so baseline immunocompromised presents stating that last week she had a mild upper respiratory symptom that seems to have resolved about 48 hours ago. 24 hours ago she started noting that she was developing a burning sensation inside her lungs, felt like she was ?breathing hot coals into her chest? and describes severe exertional fatigue/dyspnea, has not been able to walk across the room without needing to stop actually catch her breath. She still has a dry cough complains of headache for which she is taken ibuprofen twice today. Some mild nausea which is close to her baseline. She tried to see her primary care doctor who directed her to the walk-in clinic who felt that additional workup was probably going to be appropriate. Given her immune compromised status and fairly significant orthostasis I agree. She states that she does have a history of asthma, has been using her Advair Diskus twice a day as prescribed and has not needed her rescue inhaler for months. She is not experiencing increasing wheeze with any of her symptoms currently. She notes minor amount of loose stool which again, is close to her baseline. No dysuria, vaginal discharge or flank pain. Related Data Home Medications Medication Instructions Recorded Confirmed adalimumab 40 mg/0.4 mL See Rx Instructions SUBCUT .COMPLEX 12/23/22 12/23/22 subcutaneous pen kit celecoxib 100 mg capsule 100 mg PO BID 12/23/22 12/23/22 Previous Rx's Medication Instructions Recorded fluticasone propionate 50 1 spray intranasal DAILY #19.8 mL 07/21/19 mcg/actuation nasal spray,suspension (Flonase Allergy Relief) cholecalciferol (vitamin D3) 1,250 1,250 mcg PO QWEEK #8 tabs 12/23/21 mcg (50,000 unit) tablet fluticasone propionate 45 See Rx Instructions .Route 03/15/23 mcg-salmeterol 21 mcg/actuation .COMPLEX #12 grams HFA inhaler (Advair HFA) cyclobenzaprine 10 mg tablet See Rx Instructions .Route 03/16/23 .COMPLEX #90 tabs amoxicillin 500 mg capsule 500 mg PO TID #30 caps 08/24/23 azithromycin 250 mg tablet 250 mg PO DAILY 5 days #6 tabs 08/24/23 benzonatate 100 mg capsule 100 mg PO TID PRN cough #20 caps 08/24/23 prednisone 20 mg tablet 40 mg (2 x 20 mg) PO DAILY 3 days 08/24/23 #6 tabs Allergies Allergy/AdvReac Type Severity Reaction Status Date / Time No Known Drug Allergies Allergy Verified 08/24/23 17:47 Review of Systems Review of Systems Narrative: Pertinent positive and negative findings as per HPI Patient History Medical History Cervical radiculopathy Chronic pain of left knee BMI 40.0-44.9, adult Asperger syndrome Nocturnal leg cramps Crohn's disease Anemia, unspecified Abnormal mammogram Cervical cancer screening Anxiety Seizures (~2004) Psoriatic arthritis (~2015) ADHD (~1985) Fibromyalgia (~2007) Ovarian cyst (~1999) Irritable bowel syndrome (~1993) Surgical History Hx of hysterectomy History of knee surgery (~2004) Anesthesia History of cholecystectomy (~2004) Family History Father Esophageal cancer Mother Poor health Breast cancer Family/Other Breast cancer Family/Other Lymphoma Social History household members: spouse and children Smoking Status: Never smoker alcohol intake: never substance use type: marijuana (edible at night ) Smoking Status: Never smoker alcohol intake frequency: holidays/special occasions only Substance Use Type: marijuana Exam Initial Vital Signs Initial Vital Signs: Vital Signs Temperature 98.8 F 08/24/23 17:43 Pulse Rate 99 H 08/24/23 17:43 Respiratory Rate 15 08/24/23 17:43 Blood Pressure 141/77 H 08/24/23 17:43 Pulse Oximetry 94 08/24/23 17:43 Oxygen Delivery Method Room Air 08/24/23 17:43 General: Healthy appearing, in no acute distress. Able to give a complete and coherent history. Well-nourished well-developed HEENT: Dry mucous membranes, normal sclera with reactive pupils, minimal pharyngeal erythema, no cervical adenopathy voice is slightly hoarse Neck: supple Respiratory: Lungs are clear to auscultation, no wheezing no rales no rhonchi. Full and symmetrical air movement Cardiac: Regular rate and rhythm no murmurs no bruits Abdomen: Soft, nontender, good bowel tones, no flank pain Skin: Warm and dry, no rashes or significant psoriatic outbreaks Neurologic: Grossly neurologically intact with no obvious asymmetries or abnormalities Extremities: No trauma, well perfused Psych: Cooperative, appropriate insight and affect From a supine to sitting position heart rate goes from 80-120, sinus rhythm she does get slightly dizzy when sitting Course Orders Ordered: ED Orders 08/24/23 17:46 XR chest 2V Stat EKG-12 Lead Stat 08/24/23 18:40 Complete Blood Count AUTO DIFF Stat Comprehensive Metabolic Panel Stat D Dimer Stat Lactate (Lactic Acid) Stat NT-proBNP (BNP-Adult 18+) Stat Procalcitonin Stat Troponin I Stat 08/24/23 19:03 Respiratory Panel (Film Array) Stat 08/24/23 19:25 Blood Culture Stat 08/24/23 19:37 CT angio chest PE protocol Stat 08/24/23 19:52 Test Urine Stat Urinalysis and Microscopic Stat Discontinued Medications Albuterol (Albuterol 2.5 Mg/3 Ml Neb (Adult)) 2.5 mg INH NOW ONE Stop: 08/24/23 19:40 Last Admin: 08/24/23 20:02 Dose: 2.5 mg Documented By: Sodium Chloride (Normal Saline 0.9%) 1,000 mls @ 1,000 mls/hr IV BOLUS ONE Stop: 08/24/23 19:24 Last Infusion: 08/24/23 19:41 Dose: Infused Documented By: Admin: 08/24/23 18:45 Dose: 1,000 mls/hr Documented By: MARK Ketorolac Tromethamine (Ketorolac 30 Mg/Ml Vial) 15 mg IV NOW ONE Stop: 08/24/23 18:26 Last Admin: 08/24/23 18:45 Dose: 15 mg Documented By: MARK Metoclopramide HCl (Metoclopramide 10 Mg/2 Ml Inj) 10 mg IV NOW ONE Stop: 08/24/23 18:26 Last Admin: 08/24/23 18:45 Dose: 10 mg Documented By: MPO Vital Signs Vital signs: Vital Signs - 8 hr 08/24/23 17:43 08/24/23 17:44 08/24/23 17:45 Temperature 98.8 F Pulse Rate 99 H 85 Respiratory Rate 15 Blood Pressure 141/77 H 141/77 H Pulse Oximetry 94 95 Oxygen Delivery Method Room Air 08/24/23 17:56 08/24/23 17:56 08/24/23 18:00 Temperature Pulse Rate 88 82 Respiratory Rate 16 23 Blood Pressure 144/78 H Pulse Oximetry 94 95 Oxygen Delivery Method 08/24/23 18:00 08/24/23 18:30 08/24/23 18:30 Temperature Pulse Rate 76 Respiratory Rate 15 Blood Pressure 129/66 129/77 Pulse Oximetry 93 Oxygen Delivery Method 08/24/23 19:00 08/24/23 19:00 08/24/23 19:30 Temperature Pulse Rate 80 80 Respiratory Rate 21 24 Blood Pressure 130/73 Pulse Oximetry 93 94 Oxygen Delivery Method 08/24/23 19:32 08/24/23 19:32 08/24/23 20:02 Temperature Pulse Rate 84 87 Respiratory Rate 26 H 24 Blood Pressure 115/73 127/60 Pulse Oximetry 94 95 Oxygen Delivery Method Medical Decision Making Lab Data 08/24/23 18:40 08/24/23 18:40 Labs: Lab Results 08/24/23 08/24/23 08/24/23 Range/Units 18:40 19:03 19:52 WBC 6.1 (4.5-11.0) X10^3/uL RBC 3.91 L (4.0-5.2) X10^6/uL Hgb 12.7 (12.0-16.0) g/dL Hct 36.8 (36-46) % MCV 94.0 (80-100) fL MCH 32.6 (26-34) PG MCHC 34.6 (30-36) % RDW 14.4 (11.6-14.8) % Plt Count 178 (150-400) X10^3/uL Neut % (Auto) 66.0 (50-75) % Lymph % (Auto) 18.2 L (25-40) % [place] % (Auto) 11.6 (3-14) % Eos % (Auto) 3.8 (2-4) % Baso % (Auto) 0.4 (0-2) % Neut # (Auto) 4100 (1456-3398) /uL Lymph # (Auto) 1100 (0879-0503) /uL [place] # (Auto) 700 (0-900) /uL Eos # (Auto) 200 (0-450) /uL Baso # (Auto) 0 (0-100) /uL D-Dimer 765 H (<500) ng/ml Sodium 135 L (137-145) mmol/L Potassium 3.6 (3.4-5.1) mmol/L Chloride 103 (98-107) mmol/L Carbon Dioxide 25 (22-32) mmol/L BUN 14 (7-17) mg/dL Creatinine 0.77 (0.52-1.04) mg/dL Estimated GFR > 60 (>60) mL/min BUN/Creatinine Ratio 18.2 (6-22) Glucose 92 (70-100) mg/dL Lactate 1.0 (0.7-2.1) mmol/L Calcium 9.3 (8.4-10.2) mg/dL Total Bilirubin 1.4 H (0.2-1.3) mg/dL AST 24 (14-36) IU/L ALT 44 H (<35) IU/L Alkaline Phosphatase 68 (38-126) U/L Troponin I < 0.012 (0.01-0.034) ng/mL NT-Pro-B Natriuret Pep 99 (<125) pg/mL Total Protein 7.5 (6.3-8.2) g/dL Albumin 4.4 (3.5-5.0) g/dL Globulin 3.1 (1.7-4.1) g/dL Albumin/Globulin Ratio 1.4 (1.0-2.8) Procalcitonin 0.16 (<0.5) ng/mL Urine Color Yellow Urine Appearance Clear Urine pH 5.5 (4.5-8.0) Ur Specific [place] 1.025 (1.000-1.035) Urine Protein Negative (Negative) Urine Glucose (UA) Negative (Negative) g/dL Urine Ketones Trace H (NEGATIVE) Urine Occult Blood Negative (Negative) Urine Nitrate Negative (Negative) Urine Bilirubin Negative (NEGATIVE) Urine Urobilinogen 0.2 (0.2) E.U./dL Ur Leukocyte Esterase Negative (NEGATIVE) Urine RBC None seen (0-5/HPF) Urine WBC 0-1/hpf (0-5/HPF) Ur Squamous Epith Cells 1-5 /hpf (0-5/HPF) Urine Bacteria None seen (None) Urine Mucus 1+ H (Negative) Ur Culture Indicated? Cult not indicated Urine Test Negative (Negative) Chlamy pneumoniae PCR Not detected (Not Detect) Adenovirus (PCR) Not detected (Not Detect) B.parapertussis DNA PCR Not detected (Not Detecte) Coronavirus OC43 (PCR) Not detected (Not Detect) Coronavirus HKU1 (PCR) Not detected (Not Detect) Coronavirus 229E (PCR) Not detected (Not Detect) SARS-CoV-2 (PCR) Not detected (Not Detecte) Coronavirus NL63 (PCR) Not detected (Not Detect) Human Metapneumovir PCR Not detected (Not Detect) Influenza Type A (PCR) Not detected (Not Detect) Influenza Type B (PCR) Not detected (Not Detect) M. pneumoniae (PCR) Not detected (Not Detect) Parainfluenza 1 (PCR) Not detected (Not Detect) Parainfluenza 2 (PCR) Not detected (Not Detect) Parainfluenza 3 (PCR) Not detected (Not Detect) Parainfluenza 4 (PCR) Not detected (Not Detect) RSV (PCR) Not detected (Not Detect) Entero/Rhino (PCR) Not detected (Not Detect) MDM Narrative Medical decision making narrative: CC: Burning lungs and significant exertional dyspnea Complicating co-morbidities: Immunocompromised with her autoimmune diseases, recently resolved minor upper respiratory disease Data collected from: patient Medical records reviewed: Urgent care notes from earlier today as well as recent primary care notes were all reviewed Differential considered: Viral syndrome, pericarditis, pneumonia, pulmonary embolism, pneumothorax Exam documented above, pertinent findings include: Exam is relatively benign. She is got no wheezing, abdomen is soft. Aside from the orthostatic hypotension I am not finding other localizing symptoms Lab Test results independently reviewed as above. Pertinent findings: CBC is unremarkable Chemistries are relatively unremarkable. Slight increased to total bili at 1.4. Slight increase ALT 244. Troponin is undetectable ProBNP is low Procalcitonin is low D-dimer is relatively elevated, CT angiogram of the chest will be ordered Respiratory panel demonstrates no viral etiology Independently reviewed EKG: Sinus rhythm at a rate of 78. Normal intervals, normal axis. No acute ischemic changes Imaging studies independently reviewed: Chest x-ray shows no significant abnormalities specifically no cardiomegaly, pulmonary infiltrates or pneumothorax CT angiogram is reviewed, formal radiology in interpretation finds. No pulmonary embolism.Bilateral patchy ground-glass opacity. Suspect infectious/inflammatory etiology. Enlarged hilar lymph nodes. A few shotty mediastinal lymph nodes. Favor reactive etiology. Treatments: Parenteral fluids, Toradol, Reglan (to help with headache as well as lung pain) and albuterol. Re-evaluations:8:10 after albuterol nebulizer treatment patient feels that the burning sensation is not quite so intense in her lungs. She also feels that the fluids and Toradol may have been helpful Discussion: 48-year-old woman who has a history of mild asthma, recent upper respiratory infection now feeling worse with burning lungs. Albuterol nebulizer did help significantly with a burning sensation. She is not complaining of cough or wheeze. Because of a slightly elevated D-dimer PE study was ordered which shows patchy bilateral ground-glass opacity and in the absence of obvious viral symptoms I suspect that she is developing a bacterial superinfection after last week's viral etiology. She is certainly at risk for this with her immune compromise status. Fortunately she is not showing any signs of sepsis or impending respiratory failure there is no indication for additional workup or hospitalization. We will choose to treat her pneumonia with amoxicillin and azithromycin prescriptions are written. Patient does have rescue albuterol inhaler at home and I did suggest that it would be safe to use this up to 4 times a day for the burning sensation inside her lungs. In the absence of wheeze or persistent cough, I do not think that steroids are going to be required. Clearly reviewed worsening respiratory issues and reasons to return to the emergency department. Questions are answered and she is safe for discharge Discharge Plan Departure Patient Disposition: Home Clinical Impression: Pneumonia Qualifiers: Pneumonia type: due to unspecified organism Laterality: bilateral Lung location: unspecified part of lung Qualified Code(s): J18.9 - Pneumonia, unspecified organism Asthma Qualifiers: Asthma severity: moderate Asthma persistence: persistent Asthma complication type: uncomplicated Qualified Code(s): J45.40 - Moderate persistent asthma, uncomplicated Instructions: DI for Pneumonia -- Adult, DI for Atypical Pneumonia Activity Restrictions/Additional Instructions: Thank you for coming in today I suspect that you are developing a bacterial pneumonia after your viral infection last week. This is based on findings on your CT scan. There is no evidence of pulmonary embolism. No evidence of impending respiratory distress. At this time you do not need any additional blood work and do not need hospitalization I am going to give you a prescription for azithromycin with the 1st dose given tonight. This is to treat the ?atypical? component possibility of your bilateral pneumonia. I am also giving you 10 days of amoxicillin for more traditional bacterial pneumonia etiologies. It is okay to use your albuterol inhaler throughout the day if you feel like your lungs are burning. Please do continue to use the Advair as you have been. Prescriptions have been electronically transmitted to [facility] in [place] If you find that you are getting worse or develop any new symptoms, please feel free to return to the emergency department for further evaluation. Prescriptions: New amoxicillin 500 mg capsule 500 mg PO TID Qty: 30 0RF azithromycin 250 mg tablet 250 mg PO DAILY 5 Days Qty: 6 0RF No Action prednisone 20 mg tablet 40 mg PO DAILY 3 Days Qty: 6 0RF benzonatate 100 mg capsule 100 mg PO TID PRN (Reason: cough) Qty: 20 0RF cholecalciferol (vitamin D3) 1,250 mcg (50,000 unit) tablet 1,250 mcg PO QWEEK Qty: 8 0RF Advair HFA 45-21 mcg/actuation HFA aerosol inhaler See Rx Instructions .ROUTE .COMPLEX Qty: 12 11RF Dose Instruction: INHALE 2 PUFFS INTO THE LUNGS TWICE DAILY FOR ASTHMA Rx Instructions: INHALE 2 PUFFS INTO THE LUNGS TWICE DAILY FOR ASTHMA cyclobenzaprine 10 mg tablet See Rx Instructions .ROUTE .COMPLEX Qty: 90 0RF Dose Instruction: TAKE 1 TABLET BY MOUTH THREE TIMES DAILY NEEDED FOR MUSCLE SPASM Rx Instructions: TAKE 1 TABLET BY MOUTH THREE TIMES DAILY NEEDED FOR MUSCLE SPASM fluticasone propionate [Flonase Allergy Relief] 50 mcg/actuation spray,suspension 1 spray NASAL DAILY Qty: 19.8 0RF Rx Instructions: administer into each nostril adalimumab 40 mg/0.4 mL pen injector kit See Rx Instructions SUBCUT .COMPLEX Rx Instructions: inject one - 40 mg/0.4 mL pen every 2 weeks SUBCUT celecoxib 100 mg capsule 100 mg PO BID Referrals: Saman Rainey, DO [Primary Care Provider] - Stand Alone Forms: Patient Portal/API
[2023-08-24] MEDS: SODIUM CHLORIDE 0.9% 1,000 ML 1000 ML IV (18:45)
[2023-08-24] MEDS: METOCLOPRAMIDE 10 MG/2 ML INJ IV (18:45)
[2023-08-24] MEDS: KETOROLAC 30 MG/ML VIAL 15 MG IV (18:45)
[2023-08-24 18:49] LABS: Add Manual Diff / Slide Review NO; Basophils Absolute Auto 0 /uL (0-100); Basophils Percent Auto 0.4 % (0-2); Eosinophils Absolute Auto 200 /uL (0-450); Eosinophils Percent Auto 3.8 % (2-4); Hematocrit 36.8 % (36-46); Hemoglobin 12.7 g/dL (12.0-16.0); Lymphocytes Absolute Auto 1100 /uL (1100-4500); Lymphocytes Percent Auto 18.2 % (25-40); Mean Corpuscular HGB Conc 34.6 % (30-36); Mean Corpuscular Hemoglobin 32.6 PG (26-34); Monocytes Absolute Auto 700 /uL (0-900); Monocytes Percent Auto 11.6 % (3-14); Neutrophils Absolute Auto 4100 /uL (1500-7000); Platelet Count 178 X10^3/uL (150-400); Red Blood Cell Count 3.91 X10^6/uL (4.0-5.2); Red Cell Distribution Width 14.4 % (11.6-14.8); White Blood Cell Count 6.1 X10^3/uL (4.5-11.0)
[2023-08-24 19:10] LABS: Alanine Aminotransferase 44 IU/L (<35); Albumin 4.4 g/dL (3.5-5.0); Albumin Globulin Ratio 1.4 (1.0-2.8); Alkaline Phosphatase 68 U/L (38-126); Aspartate Aminotransferase 24 IU/L (14-36); BUN Creatinine Ratio 18.2 (6-22); Bilirubin Total 1.4 mg/dL (0.2-1.3); Blood Urea Nitrogen 14 mg/dL (7-17); Calcium 9.3 mg/dL (8.4-10.2); Carbon Dioxide 25 mmol/L (22-32); Chloride 103 mmol/L (98-107); Estimated Glomerular Filt Rate > 60 mL/min (>60); Globulin 3.1 g/dL (1.7-4.1); Glucose 92 mg/dL (70-100); HEMOLYSIS < 15 (0-50); Potassium 3.6 mmol/L (3.4-5.1); Sodium 135 mmol/L (137-145); Total Protein 7.5 g/dL (6.3-8.2)
[2023-08-24 19:12] LABS: D Dimer 765 ng/ml (<500)
[2023-08-24 19:22] LABS: NT-proBNP (BNP-Adult 18+) 99 pg/mL (<125); Troponin I < 0.012 ng/mL (0.01-0.034)
[2023-08-24 19:27] LABS: Procalcitonin 0.16 ng/mL (<0.5)
--- NOTE | 2023-08-24 19:37 | DI.CT.S_ITS ---
PROCEDURE: CT ANGIO CHEST PE PROTOCOL INDICATIONS: Lung pain, elevated D-dimer, significant tachycardia TECHNIQUE: After the administration of intravenous contrast, 2 mm thick sections acquired from the pulmonary apices to the posterior costophrenic angles. 3-dimensional maximum intensity projection (MIP) coronal and sagittal reformats were then acquired through the thorax. For radiation dose reduction, the following was used: automated exposure control, adjustment of mA and/or kV according to patient size. COMPARISON: None. FINDINGS: Image quality: Diagnostic. Pulmonary arteries: Pulmonary arteries are normal in size, and demonstrate no intraluminal filling defects to suggest central pulmonary embolism. Lungs and pleura: Bilateral patchy ground-glass opacity. No pleural effusions or pneumothorax. Central and peripheral airways are patent. Mediastinum: Heart size is normal, without pericardial effusion. Left hilar node measuring 1.1 cm, (4/57). Right hilar node measuring 1.3 cm, (4/59). Lower paraesophageal node measuring 0.6 cm, (4/110). Thoracic aorta is normal in caliber and enhancement. Esophagus is normal in caliber, without hiatal hernia. Bones and chest wall: No suspicious bony lesions. Ribs and thoracic spine appear intact throughout. No axillary or supraclavicular adenopathy. No thyroid nodules which require sonographic follow up, per consensus guidelines. Upper Abdomen: Visualized upper abdominal solid organs appear normal in the early arterial phase of enhancement. IMPRESSION: 1. No pulmonary embolism. 2. Bilateral patchy ground-glass opacity. Suspect infectious/inflammatory etiology. Atelectasis is felt to be less likely. 3. Enlarged hilar lymph nodes. A few shotty mediastinal lymph nodes. Favor reactive etiology. Dictated by: Pradip Mckenzie M.D. on 08/24/2023 at 20:13 Approved by: Pradip Mckenzie M.D. on 08/24/2023 at 20:19
[2023-08-24 20:02] LABS: Pregnancy Test Urine Negative (Negative)
[2023-08-24] MEDS: ALBUTEROL 2.5 MG/3 ML NEB (ADULT) INH (20:02)
[2023-08-24 20:03] LABS: Appearance Urine UA CLEAR; Bilirubin Urine UA NEGATIVE (NEGATIVE); Color Urine UA YELLOW; Glucose Urine UA NEGATIVE (Negative); Ketones Urine UA TRACE (NEGATIVE); Leukocyte Esterase Urine UA NEGATIVE (NEGATIVE); Nitrite Urine UA NEGATIVE (Negative); Occult Blood Urine UA NEGATIVE (Negative); Protein Urine UA NEGATIVE (Negative); Specific Gravity Urine UA 1.025 (1.000-1.035); Urobilinogen Urine UA 0.2 E.U./dL (0.2)
[2023-08-24 20:17] LABS: pH Urine UA 5.5 (4.5-8.0)
[2023-08-24 20:23] LABS: Bacteria Urine None Seen; RBC Urine None Seen (0-5/HPF); Squamous Epithelial Cell Urine 1-5 /HPF (0-5/HPF); WBC Urine 0-1/HPF (0-5/HPF)
[2023-08-24 20:24] LABS: Culture Indicated Urine Cult Not Indicated; Mucus Urine 1+ (Negative)
[2023-08-24 20:33] LABS: Adenovirus Not Detected (Not Detect); B. parapertussis Not Detected (Not Detecte); Bordetella pertussis Not Detected (Not Detect); Chlamydophila pneumoniae Not Detected (Not Detect); Coronavirus 229E Not Detected (Not Detect); Coronavirus HKU1 Not Detected (Not Detect); Coronavirus NL 63 Not Detected (Not Detect); Coronavirus OC43 Not Detected (Not Detect); Human Metapneumovirus Not Detected (Not Detect); Human Rhinovirus/Enterovirus Not Detected (Not Detect); Influenza A Not Detected (Not Detect); Influenza B Not Detected (Not Detect); Mycoplasma pneumoniae Not Detected (Not Detect); Parainfluenza Virus 1 Not Detected (Not Detect); Parainfluenza Virus 2 Not Detected (Not Detect); Parainfluenza Virus 3 Not Detected (Not Detect); Parainfluenza Virus 4 Not Detected (Not Detect); Respiratory Syncytial Virus Not Detected (Not Detect); SARS- CoV-2 Not Detected (Not Detecte)
[2023-08-24] MEDS: AMOXICILLIN 250 MG CAPSULE 500 MG PO (20:54)
[2023-08-24] MEDS: AZITHROMYCIN 250 MG TABLET 500 MG PO (20:54)
[2023-09-14 07:56] LABS: Miscellaneous to LabCorp SEE SCANNED RESULTS
== END 2023-08-24 21:04 | disposition home or self-care (01) ==
PROVIDERS: Emergency Provider Emergency Medicine; PCP Family Medicine
DX: J18.9 Pneumonia, unspecified organism (principal); J45.40 Moderate persistent asthma, uncomplicated; Z11.52 Encounter for screening for COVID-19
CPT/HCPCS: 71046; 71275; 80053; 81001; 81025; 83605; 83880; 84145; 84484; 85025; 85379; 87040; 87186; 87633; 93005; 94640; 96374; 96375; 99284; J1885; J2765; J7613; Q9967

== ENCOUNTER 2023-09-03 13:59 | Observation (INO) | payer OTHER, SELFPAY ==
[2021-05-23 13:41] VITALS: BMI 43.5
[2023-09-03] VITALS (8 sets, daily range): BP systolic 118–148; BP diastolic 74–84; PULSE 66–74; RESP 18–24; TEMP 36.5–36.9; O2SAT 94–96; BMI 35.2; BMI 36.6
--- NOTE | 2023-09-03 15:12 | DI.RAD.S_ITS ---
PROCEDURE: XR CHEST 1V INDICATIONS: SOB TECHNIQUE: One view of the chest was acquired. COMPARISON: [facility], CR, XR CHEST 2V, 08/24/2023, 17:48. [facility], CR, XR CHEST 2V, 04/01/2021, 16:29. FINDINGS: Surgical changes and devices: None. Lungs and pleura: Lungs are clear considering reduced inspiratory volume Dom. No pleural effusions or pneumothorax. Mediastinum: Mediastinal contours appear normal. Heart size is normal. Bones and chest wall: No suspicious bony lesions. Overlying soft tissues appear unremarkable. IMPRESSION: Reduced inspiratory volume, no acute disease when this is taken into account. Dictated by: Daniel Torre M.D. on 09/03/2023 at 15:55 Approved by: Daniel Torre M.D. on 09/03/2023 at 15:57
[2023-09-03 15:41] LABS: Add Manual Diff / Slide Review NO; Basophils Absolute Auto 0 /uL (0-100); Basophils Percent Auto 0.4 % (0-2); Eosinophils Absolute Auto 500 /uL (0-450); Eosinophils Percent Auto 4.7 % (2-4); Hematocrit 40.3 % (36-46); Hemoglobin 13.6 g/dL (12.0-16.0); Lymphocytes Absolute Auto 4600 /uL (1100-4500); Lymphocytes Percent Auto 39.9 % (25-40); Mean Corpuscular HGB Conc 33.8 % (30-36); Mean Corpuscular Volume 94.7 fL (80-100); Monocytes Absolute Auto 1300 /uL (0-900); Monocytes Percent Auto 11.4 % (3-14); Neutrophils Absolute Auto 5000 /uL (1500-7000); Neutrophils Percent Auto 43.6 % (50-75); Platelet Count 292 X10^3/uL (150-400); Red Blood Cell Count 4.26 X10^6/uL (4.0-5.2); Red Cell Distribution Width 14.6 % (11.6-14.8); White Blood Cell Count 11.5 X10^3/uL (4.5-11.0)
[2023-09-03 15:53] LABS: Alanine Aminotransferase 31 IU/L (<35); Albumin 4.2 g/dL (3.5-5.0); Albumin Globulin Ratio 1.3 (1.0-2.8); Alkaline Phosphatase 87 U/L (38-126); Aspartate Aminotransferase 26 IU/L (14-36); BUN Creatinine Ratio 18.5 (6-22); Bilirubin Total 0.8 mg/dL (0.2-1.3); Blood Urea Nitrogen 12 mg/dL (7-17); Calcium 9.5 mg/dL (8.4-10.2); Carbon Dioxide 26 mmol/L (22-32); Chloride 103 mmol/L (98-107); Creatine Kinase 29 U/L (30-135); Estimated Glomerular Filt Rate > 60 mL/min (>60); Globulin 3.2 g/dL (1.7-4.1); Glucose 95 mg/dL (70-100); HEMOLYSIS < 15 (0-50); Lactate (Lactic Acid) 1.1 mmol/L (0.7-2.1); Potassium 4.1 mmol/L (3.4-5.1); Sodium 136 mmol/L (137-145); Total Protein 7.4 g/dL (6.3-8.2)
[2023-09-03 16:04] LABS: NT-proBNP (BNP-Adult 18+) < 20 pg/mL (<125); Troponin I < 0.012 ng/mL (0.01-0.034)
[2023-09-03 16:09] LABS: Procalcitonin 0.07 ng/mL (<0.5)
--- NOTE | 2023-09-03 18:17 | ED.GENADULT ---
HPI - General Adult General Chief complaint: Shortness of Breath/Dyspnea Stated complaint: SOB/pnemonia follow up/from primary care Time Seen by Provider: 09/03/23 15:12 Source: patient Mode of arrival: Ambulatory Limitations: no limitations History of Present Illness HPI narrative: Patient is a 48-year-old female. Was seen here in the emergency department approximately 10-14 days ago. Was subsequently diagnosed with pneumonia. Was sent home on antibiotics. Has finished 1 of the antibiotics and still has a couple days left of the 2nd. She states she still does not feel very well. Not necessarily worse but certainly not any better. Has burning in her chest. She received a call from us stating that her blood cultures were positive that she should be re-evaluated. She went to her primary doctor's office who advised that she come to the emergency department. She is having some diarrhea but that is not necessarily uncommon for her after having antibiotics. No urinary symptoms. Some mild abdominal pain in the epigastric region. No neck pain. No sinus congestion. No skin rashes. Related Data Home Medications Medication Instructions Recorded Confirmed adalimumab 40 mg/0.4 mL See Rx Instructions SUBCUT .COMPLEX 12/23/22 09/03/23 subcutaneous pen kit celecoxib 100 mg capsule 100 mg PO BID 12/23/22 09/03/23 methotrexate sodium 2.5 mg tablet 2.5 mg PO Q2W 09/03/23 09/03/23 Previous Rx's Medication Instructions Recorded fluticasone propionate 50 1 spray intranasal DAILY #19.8 mL 07/21/19 mcg/actuation nasal spray,suspension (Flonase Allergy Relief) cholecalciferol (vitamin D3) 1,250 1,250 mcg PO QWEEK #8 tabs 12/23/21 mcg (50,000 unit) tablet fluticasone propionate 45 See Rx Instructions .Route 03/15/23 mcg-salmeterol 21 mcg/actuation .COMPLEX #12 grams HFA inhaler (Advair HFA) amoxicillin 500 mg capsule 500 mg PO TID #30 caps 08/24/23 albuterol sulfate 2.5 mg/3 mL 2.5 mg (3 mL) inhalation Q4-6H PRN 08/27/23 (0.083 %) solution for nebulization shortness of breath or wheezing #90 mL albuterol sulfate 90 mcg/actuation 2 puff inhalation Q4-6H PRN 08/27/23 aerosol inhaler shortness of breath or wheezing #18 grams nebulizers (AeroEclipse XL #1 ea 08/27/23 Nebulizer) Allergies Allergy/AdvReac Type Severity Reaction Status Date / Time No Known Drug Allergies Allergy Verified 09/03/23 13:24 Review of Systems Review of Systems ROS Unobtainable: All systems reviewed & are unremarkable except as noted in HPI and below Patient History Medical History Cervical radiculopathy Chronic pain of left knee BMI 40.0-44.9, adult Asperger syndrome Nocturnal leg cramps Crohn's disease Anemia, unspecified Abnormal mammogram Cervical cancer screening Anxiety Seizures (~2004) Psoriatic arthritis (~2015) ADHD (~1985) Fibromyalgia (~2007) Ovarian cyst (~1999) Irritable bowel syndrome (~1993) Surgical History Hx of hysterectomy History of knee surgery (~2004) Anesthesia History of cholecystectomy (~2004) Family History Father Esophageal cancer Mother Poor health Breast cancer Family/Other Breast cancer Family/Other Lymphoma Social History household members: spouse and children Smoking Status: Never smoker alcohol intake: current substance use type: marijuana (edible at night ) Smoking Status: Never smoker alcohol intake frequency: holidays/special occasions only Substance Use Type: marijuana Exam Initial Vital Signs Initial Vital Signs: Vital Signs Temperature 98.5 F 09/03/23 14:07 Pulse Rate 72 09/03/23 14:07 Respiratory Rate 24 09/03/23 14:07 Blood Pressure 142/79 H 09/03/23 14:07 Const General: cooperative, comfortable and No ill appearing HENMT Head: normal to inspection and normocephalic Resp Effort & Inspection: normal respiratory effort Auscultation: clear to auscultation bilaterally Cardio Rate: regular rate Rhythm: regular rhythm GI Inspection: normal to inspection and non-distended Palpation: No tender Neuro General: patient alert, patient awake, patient oriented x3 and does not move all extremities Extrem General: capillary refill normal Course Orders Ordered: ED Orders 09/03/23 15:12 Chest [XR chest 1V] Stat 09/03/23 15:20 BNP [NT-proBNP (BNP-Adult 18+)] Stat CBC Auto Diff [Complete Blood Count AUTO DIFF] Stat CMP [Comprehensive Metabolic Panel] Stat Lactate (Lactic Acid) Stat Procalcitonin Stat Troponin & CK Cardiac Panel Stat 09/03/23 15:31 EKG-12 Lead Stat 09/03/23 15:58 Blood Culture Stat Acetaminophen (Acetaminophen 325 Mg Tablet) 650 mg PO Q6H PRN PRN Reason: Fever Hydrocodone Bitart/Acetaminophen (Hydrocodone/Acet 5/325 Tablet) 1 tab PO Q4H PRN PRN Reason: Pain, Moderate (4-6) Albuterol (Albuterol 2.5 Mg/3 Ml Neb (Adult)) 2.5 mg INH Q4HRWA EPIFANIO Albuterol (Albuterol 2.5 Mg/3 Ml Neb (Adult)) 2.5 mg INH Q2H PRN PRN Reason: Shortness Of Breath Albuterol/Ipratropium (Albuterol/Ipratropium 3 Ml Ampul) 3 ml INH RTQ6HR PRN PRN Reason: Shortness Of Breath Budesonide (Budesonide 0.5 Mg/2 Ml Neb) 0.5 mg INH RTBID EPIFANIO Calcium Carbonate (Calcium Carbonate 500 Mg Tab) 1,000 mg PO Q4HR PRN PRN Reason: Dyspepsia Enoxaparin Sodium (Enoxaparin 40 Mg/0.4 Ml Syringe) 40 mg SUBCUT DAILY [facility] Fluticasone Propionate (Fluticasone 120 Hiram/16 Gm Hiram.Susp) 1 spray NASAL DAILY [facility] Dextrose/Sodium Chloride (Dextrose 5%-0.9% Ns) 1,000 mls @ 100 mls/hr IV CONT EPIFANIO Last Admin: 09/03/23 22:18 Dose: 100 mls/hr Documented By: Cefepime HCl 1 gm/ Sodium (Chloride) 100 mls @ 200 mls/hr IV Q12H EPIFANIO Lorazepam (Lorazepam 0.5 Mg Tablet) 0.5 mg PO Q6HR PRN PRN Reason: Anxiety Magnesium Hydroxide (Magnesium Hydroxide 30 Ml Udc) 30 ml PO DAILY PRN PRN Reason: Constipation Morphine Sulfate (Morphine 4 Mg/Ml Inj) 3 mg IV Q2HR PRN PRN Reason: Pain, Severe (7-10) Naloxone HCl (Naloxone 0.4 Mg/Ml Vial) 0.2 mg IV Q2MIN PRN PRN Reason: Opiate Reversal Ondansetron HCl (Ondansetron 4 Mg/2 Ml Inj) 4 mg IV Q8HR PRN PRN Reason: Nausea And Vomiting Ondansetron HCl (Ondansetron 4 Mg Odt) 4 mg PO Q8HR PRN PRN Reason: Nausea And Vomiting Prednisone (Prednisone 20 Mg Tablet) 40 mg PO DAILY [facility] Discontinued Medications Acetaminophen (Acetaminophen 325 Mg Tablet) 650 mg PO Q6H [facility] Last Admin: 09/03/23 22:28 Dose: Not Given Documented By: Albuterol (Albuterol 2.5 Mg/3 Ml Neb (Adult)) 2.5 mg INH Q4H PRN PRN Reason: shortness of breath or wheezing Cefepime HCl 2 gm/ Sodium (Chloride) 100 mls @ 200 mls/hr IV NOW ONE Stop: 09/03/23 18:19 Last Infusion: 09/03/23 19:21 Dose: Infused Documented By: Admin: 09/03/23 18:32 Dose: 200 mls/hr Documented By: SAM Cefepime HCl 1 gm/ Sodium (Chloride) 100 mls @ 200 mls/hr IV Q12H [facility] Last Admin: 09/03/23 23:08 Dose: Not Given Documented By: Morphine Sulfate (Morphine 4 Mg/Ml Inj) 3 mg IV Q2HR [facility] Last Admin: 09/03/23 23:15 Dose: Not Given Documented By: Non-Formulary Medication (Fluticasone Propion-Salmeterol [Advair Hfa]) 0 puff .ROUTE .COMPLEX [facility] Vital Signs Vital signs: Vital Signs - 8 hr 09/03/23 16:00 09/03/23 16:00 09/03/23 16:30 Pulse Rate 70 66 Respiratory Rate 19 21 Blood Pressure 128/79 Pulse Oximetry 95 96 09/03/23 16:30 09/03/23 17:00 09/03/23 17:00 Pulse Rate 74 Respiratory Rate 20 Blood Pressure 118/74 129/76 Pulse Oximetry 95 Medical Decision Making Medical Records Medical records reviewed: Yes I reviewed the patient's medical records. Lab Data Lab results reviewed: Yes I reviewed the patient's lab results. 09/03/23 15:20 09/03/23 15:20 Labs: Lab Results 09/03/23 Range/Units 15:20 WBC 11.5 H (4.5-11.0) X10^3/uL RBC 4.26 (4.0-5.2) X10^6/uL Hgb 13.6 (12.0-16.0) g/dL Hct 40.3 (36-46) % MCV 94.7 (80-100) fL MCH 32.0 (26-34) PG MCHC 33.8 (30-36) % RDW 14.6 (11.6-14.8) % Plt Count 292 (150-400) X10^3/uL Neut % (Auto) 43.6 L (50-75) % Lymph % (Auto) 39.9 (25-40) % [place] % (Auto) 11.4 (3-14) % Eos % (Auto) 4.7 H (2-4) % Baso % (Auto) 0.4 (0-2) % Neut # (Auto) 5000 (1425-2903) /uL Lymph # (Auto) 4600 H (3439-9170) /uL [place] # (Auto) 1300 H (0-900) /uL Eos # (Auto) 500 H (0-450) /uL Baso # (Auto) 0 (0-100) /uL Sodium 136 L (137-145) mmol/L Potassium 4.1 (3.4-5.1) mmol/L Chloride 103 (98-107) mmol/L Carbon Dioxide 26 (22-32) mmol/L BUN 12 (7-17) mg/dL Creatinine 0.65 (0.52-1.04) mg/dL Estimated GFR > 60 (>60) mL/min BUN/Creatinine Ratio 18.5 (6-22) Glucose 95 (70-100) mg/dL Lactate 1.1 (0.7-2.1) mmol/L Calcium 9.5 (8.4-10.2) mg/dL Total Bilirubin 0.8 (0.2-1.3) mg/dL AST 26 (14-36) IU/L ALT 31 (<35) IU/L Alkaline Phosphatase 87 (38-126) U/L Total Creatine Kinase 29 L (30-135) U/L Troponin I < 0.012 (0.01-0.034) ng/mL NT-Pro-B Natriuret Pep < 20 (<125) pg/mL Total Protein 7.4 (6.3-8.2) g/dL Albumin 4.2 (3.5-5.0) g/dL Globulin 3.2 (1.7-4.1) g/dL Albumin/Globulin Ratio 1.3 (1.0-2.8) Procalcitonin 0.07 (<0.5) ng/mL Imaging Data Chest x-ray: Radiologist's Impression: PROCEDURE: XR CHEST 1V INDICATIONS: SOB TECHNIQUE: One view of the chest was acquired. COMPARISON: [facility], CR, XR CHEST 2V, 08/24/2023, 17:48. [facility], CR, XR CHEST 2V, 04/01/2021, 16:29. FINDINGS: Surgical changes and devices: None. Lungs and pleura: Lungs are clear considering reduced inspiratory volume Dom. No pleural effusions or pneumothorax. Mediastinum: Mediastinal contours appear normal. Heart size is normal. Bones and chest wall: No suspicious bony lesions. Overlying soft tissues appear unremarkable. IMPRESSION: Reduced inspiratory volume, no acute disease when this is taken into account. MDM Narrative Medical decision making narrative: Blood cultures were positive for Acinetobacter and staff but only an aerobic bottle. There was some question as to whether not this is a contaminant however patient reports no improvement of symptoms despite antibiotics. I do not have a specific source of an infection. Low suspicion for an intra-abdominal, meningitis, urinary tract infection, or cellulitis. Patient's labs are reassuring. Patient does require admission to the hospital for observation until repeat cultures are negative. Discuss the case with Dr. Baumann hospitalist on-call who will accept. Discussed the need for admission with patient. She expressed understanding and agreement as well. Discharge Plan Departure Patient Disposition: Admitted As Inpatient Clinical Impression: Bacteremia Admit Date/Time: 09/03/23 19:32 Admit Provider: Collin Baumann
[2023-09-03] MEDS: CEFEPIME 2 GM in SODIUM CHLORIDE 0.9% 100 ML IV (18:32)
[2023-09-03] MEDS: DEXTROSE 5%-0.9% NS 1,000 ML 100 ML IV (22:18)
--- NOTE | 2023-09-03 22:25 | PM.HP.1 ---
History of Present Illness History of Present Illness Date Patient Seen: 09/03/23 Time Patient Seen: 22:26 Chief complaint: SOB/pnemonia follow up/from primary care Narrative: The pt is a 48 yo with a hx of Crohns and psorasis on Humaria and methotrexate who was admitted for a pneumonia 2 weeks ago and has been having pain and burning when she cough and takes a deep breath in. Upon further questioning, she admits that this is not new and not worse since admission. She states her only new complaint is that she is more fatigued than she was when she was discharged last week. She states that she sleeps all the time and and has trouble getting motivated. Amparo also states that there is a persistent cough which she describes as barky but non-productive. There has been no fevers, chills, N/V/ Diarrhea. She has not taken her methotrexate or Humara since discharge. [facility] Medical History Cervical radiculopathy Chronic pain of left knee BMI 40.0-44.9, adult Asperger syndrome Nocturnal leg cramps Crohn's disease Anemia, unspecified Abnormal mammogram Cervical cancer screening Anxiety Seizures (~2004) Psoriatic arthritis (~2015) ADHD (~1985) Fibromyalgia (~2007) Ovarian cyst (~1999) Irritable bowel syndrome (~1993) Surgical History Hx of hysterectomy History of knee surgery (~2004) Anesthesia History of cholecystectomy (~2004) Family History Father Esophageal cancer Mother Poor health Breast cancer Family/Other Breast cancer Family/Other Lymphoma Social History household members: spouse and children Smoking Status: Never smoker alcohol intake: current substance use type: marijuana (edible at night ) Meds Home Medications and Allergies Home Medications Medication Instructions Recorded Confirmed Type fluticasone propionate 50 1 spray intranasal DAILY #19.8 mL 07/21/19 09/03/23 Rx mcg/actuation nasal spray,suspension (Flonase Allergy Relief) cholecalciferol (vitamin D3) 1,250 1,250 mcg PO QWEEK #8 tabs 12/23/21 09/03/23 Rx mcg (50,000 unit) tablet adalimumab 40 mg/0.4 mL See Rx Instructions SUBCUT .COMPLEX 12/23/22 09/03/23 History subcutaneous pen kit celecoxib 100 mg capsule 100 mg PO BID 12/23/22 09/03/23 History fluticasone propionate 45 See Rx Instructions .Route 03/15/23 09/03/23 Rx mcg-salmeterol 21 mcg/actuation .COMPLEX #12 grams HFA inhaler (Advair HFA) amoxicillin 500 mg capsule 500 mg PO TID #30 caps 08/24/23 09/03/23 Rx albuterol sulfate 2.5 mg/3 mL 2.5 mg (3 mL) inhalation Q4-6H PRN 08/27/23 09/03/23 Rx (0.083 %) solution for nebulization shortness of breath or wheezing #90 mL albuterol sulfate 90 mcg/actuation 2 puff inhalation Q4-6H PRN 08/27/23 09/03/23 Rx aerosol inhaler shortness of breath or wheezing #18 grams nebulizers (AeroEclipse XL #1 ea 08/27/23 09/03/23 Rx Nebulizer) methotrexate sodium 2.5 mg tablet 2.5 mg PO Q2W 09/03/23 09/03/23 History Allergies Allergy/AdvReac Type Severity Reaction Status Date / Time No Known Drug Allergies Allergy Verified 09/03/23 13:24 Exam Vital Signs (past 8 hours): - 09/03/23 15:33 09/03/23 15:34 09/03/23 15:34 Temperature Pulse Rate 69 70 Respiratory Rate Blood Pressure 128/84 Pulse Oximetry 96 96 09/03/23 16:00 09/03/23 16:00 09/03/23 16:30 Temperature Pulse Rate 70 66 Respiratory Rate 19 21 Blood Pressure 128/79 Pulse Oximetry 95 96 09/03/23 16:30 09/03/23 17:00 09/03/23 17:00 Temperature Pulse Rate 74 Respiratory Rate 20 Blood Pressure 118/74 129/76 Pulse Oximetry 95 09/03/23 20:40 Temperature 97.7 F Pulse Rate 66 Respiratory Rate 18 Blood Pressure 148/84 H Pulse Oximetry 94 Const General: cooperative, healthy appearing and comfortable [facility] Head: normocephalic and atraumatic Resp Effort & Inspection: normal respiratory effort Auscultation: clear to auscultation bilaterally Cardio Rate: regular rate Rhythm: regular rhythm GI Inspection: obesity Auscultation: normal bowel sounds Extrem General: no clubbing, cyanosis or edema Objective Labs 09/03/23 15:20 09/03/23 15:20 Labs: Laboratory Results - last 24 hr 09/03/23 15:20 WBC 11.5 H RBC 4.26 Hgb 13.6 Hct 40.3 MCV 94.7 MCH 32.0 MCHC 33.8 RDW 14.6 Plt Count 292 Neut % (Auto) 43.6 L Lymph % (Auto) 39.9 [place] % (Auto) 11.4 Eos % (Auto) 4.7 H Baso % (Auto) 0.4 Neut # (Auto) 5000 Lymph # (Auto) [address] [place] # (Auto) 1300 H Eos # (Auto) 500 H Baso # (Auto) 0 Sodium 136 L Potassium 4.1 Chloride 103 Carbon Dioxide 26 BUN 12 Creatinine 0.65 Estimated GFR > 60 BUN/Creatinine Ratio 18.5 Glucose 95 Lactate 1.1 Calcium 9.5 Total Bilirubin 0.8 AST 26 ALT 31 Alkaline Phosphatase 87 Total Creatine Kinase 29 L Troponin I < 0.012 NT-Pro-B Natriuret Pep < 20 Total Protein 7.4 Albumin 4.2 Globulin 3.2 Albumin/Globulin Ratio 1.3 Procalcitonin 0.07 Assessment & Plan Assessment and plan (1) Pneumonia: Qualifiers: Laterality: bilateral Lung location: unspecified part of lung Pneumonia type: due to unspecified organism Qualified Code(s): J18.9 - Pneumonia, unspecified organism Status: Acute (2) Psoriatic arthritis: Status: Acute (3) BMI 40.0-44.9, adult: Status: Acute (4) Crohn's disease: Qualifiers: Gastrointestinal tract location: unspecified location Digestive disease complication type: unspecified complication Qualified Code(s): K50.919 - Crohn's disease, unspecified, with unspecified complications Status: Acute Plan The pt was started on Cefepime in the ER and we will continue this, currently she is on RA, no distress, continue with supportive care with breathing tx, home meds, prn ativan, Previous hospitalization did have blood cultures but these were postive for contaminents of staph and strept species. The ER repeated cultures due to this, pending at this time. Quality VTE Deep Vein Thrombosis/Pulmonary Embolism Present on Admission: No
[2023-09-04] VITALS (13 sets, daily range): BP systolic 122–144; BP diastolic 58–88; PULSE 56–85; RESP 16–18; TEMP 36–36.7; O2SAT 94–98
[2023-09-04] MEDS: ALBUTEROL 2.5 MG/3 ML NEB (ADULT) INH ×4 (00:06→19:22)
[2023-09-04 06:05] LABS: Add Manual Diff / Slide Review NO; Basophils Absolute Auto 0 /uL (0-100); Basophils Percent Auto 0.4 % (0-2); Eosinophils Absolute Auto 500 /uL (0-450); Eosinophils Percent Auto 4.6 % (2-4); Hematocrit 36.8 % (36-46); Hemoglobin 12.5 g/dL (12.0-16.0); Lymphocytes Absolute Auto 4400 /uL (1100-4500); Lymphocytes Percent Auto 42.2 % (25-40); Mean Corpuscular HGB Conc 34.1 % (30-36); Mean Corpuscular Hemoglobin 32.3 PG (26-34); Mean Corpuscular Volume 94.8 fL (80-100); Monocytes Absolute Auto 1400 /uL (0-900); Monocytes Percent Auto 13.1 % (3-14); Neutrophils Absolute Auto 4100 /uL (1500-7000); Neutrophils Percent Auto 39.7 % (50-75); Platelet Count 268 X10^3/uL (150-400); Red Blood Cell Count 3.88 X10^6/uL (4.0-5.2); Red Cell Distribution Width 14.5 % (11.6-14.8); White Blood Cell Count 10.4 X10^3/uL (4.5-11.0)
[2023-09-04 06:18] LABS: BUN Creatinine Ratio 17.7 (6-22); Blood Urea Nitrogen 14 mg/dL (7-17); Calcium 8.9 mg/dL (8.4-10.2); Carbon Dioxide 26 mmol/L (22-32); Chloride 104 mmol/L (98-107); Estimated Glomerular Filt Rate > 60 mL/min (>60); Glucose 128 mg/dL (70-100); HEMOLYSIS < 15 (0-50); Potassium 3.9 mmol/L (3.4-5.1); Sodium 136 mmol/L (137-145)
[2023-09-04] MEDS: ENOXAPARIN 40 MG/0.4 ML SYRINGE SUBCUT (08:04)
[2023-09-04] MEDS: FLUTICASONE 120 SPRAY/16 GM SPRAY.SUSP NASAL (08:05)
[2023-09-04] MEDS: CEFEPIME 1 GM in SODIUM CHLORIDE 0.9% 100 ML IV (08:05)
[2023-09-04] MEDS: predniSONE 20 MG TABLET 40 MG PO (08:05)
[2023-09-04] MEDS: ACETAMINOPHEN 325 MG TABLET 650 MG PO ×3 (08:54→22:32)
[2023-09-04] MEDS: ONDANSETRON 4 MG ODT PO ×2 (08:55→16:20)
[2023-09-04] MEDS: BUDESONIDE 0.5 MG/2 ML NEB INH ×2 (09:23→19:22)
--- NOTE | 2023-09-04 11:14 | CM.DANOTE ---
DCP: Case received, EMR reviewed and met with patient. Introduced self and role. Was able to complete DCP assessment based upon information currently available. Patient is a 48 year old female who admitted yesterday evening to the care of the hospitalist team. PCP: Dr. Rainey Payer: confirmed: [facility]. Patient came to the hospital via private vehicle, patient was in the ER about 10-14 days ago, according to notes. At that time, she was diagnosed with pneumonia. She was then sent home on antibiotics. Notes also indicate that patient had received a call to come back, secondary to her blood culture results. It was unclear at the time, it the results were contaminated. Patient has history of Chrons Disease. Patient is here for her Pneumonia, and new blood cultures are being obtained, she is currently on room air. Met with patient in her room. She is alert and oriented, and confirmed that she resides in [place] with her spouse, Ady, and two children. She is independent. P: DCP to continue to follow. Plan is home when stable, cultures are pending. Chasity Connelly RN/Insulator Helper Discharge Planning/Care Management CM Discharge Assessment Start: 09/04/23 11:13 Freq: Status: Active Protocol: Document 09/04/23 11:13 (Rec: 09/04/23 11:14 [id number]) Discharge Planning Assessment Assigned Marine Drafter Chasity Connelly RN/Insulator Helper Advance Directives? No History Provided By Patient,Medical Record Prior Living Arrangements House Household Members spouse,children Type of transporation used prior to Drives own vehicle admit Independent with ADL's Yes Is patient alert and oriented? Yes Caregiver for Another Has two children Barriers to Discharge No Discharge Plan Home Transportation Arrangement Spouse Referrals Initiated None needed Whiteboard Updated in Patient Room with Yes name and ext. # of Marine Drafter Review Status In Process Next Review Type Continued Stay Review
[2023-09-04] MEDS: MORPHINE 4 MG/ML INJ 3 MG IV (13:35)
[2023-09-04] MEDS: KETOROLAC 30 MG/ML VIAL IV (16:21)
--- NOTE | 2023-09-04 19:25 | PM.PN.1 ---
Subjective Subjective Interval history: 48-year-old female with Crohn's disease and psoriasis/psoriatic arthritis on Humira and methotrexate who developed cold-like symptoms in early July. She notes for about 1 week her taste seemed altered. She did not do a COVID test. Since that time, she is noted increasing pleuritic chest pain. She describes it like burning Juan Diego's in her chest. It also hurts to take a deep breath. She is been excessively fatigued. She notes shortness of breath with activity as well as tachycardia with activity. She states she typically works out 6 days a week and this is very atypical for her. She was seen in the walk-in clinic on August 24 and was given steroids and Tessalon. Just before discharge, she developed increasing symptoms and was referred to the emergency department. In the emergency department a chest CT was done which showed bilateral ground-glass opacities. Blood cultures were taken as well. She was discharged on amoxicillin 500 mg 3 times a day for 10 days and azithromycin 250 mg for 5 days. Blood culture subsequently resulted with 1 bottle growing Acinetobacter, felt to be a contaminant. She followed up with her family doctor on September 03 and overall felt she was not improving. Her family practitioner referred her back to the emergency department. Patient reports she feels no worse than she did during her last ER visit. She does note that she does not feel significantly improved. She did report that when she was on a brief course of prednisone from the walk-in clinic, her symptoms were relieved. She has not had methotrexate or Humira this week but did take them last week. She also complains of some night sweats which are new over the past several weeks. She is post surgical menopause. However, she is not on any hormone replacement therapy. Upon further review, blood cultures from August 24 did reveal staph hominis in 1 bottle, felt to be contaminant. Another bottle revealed micrococcus and Acinetobacter, also felt to be contaminant. Blood cultures drawn on September 03 are negative to date. Exam Vital Signs (past 8 hours): - 09/04/23 11:46 09/04/23 15:34 09/04/23 16:08 Temperature Pulse Rate 80 Respiratory Rate 18 Blood Pressure Pulse Oximetry 95 95 Oxygen Delivery Method Room Air Room Air Room Air 09/04/23 17:38 Temperature 97.2 F L Pulse Rate 82 Respiratory Rate 16 Blood Pressure 144/77 H Pulse Oximetry 97 Oxygen Delivery Method Oxygen Delivery Method Room Air Oxygen Flow Rate 0 Narrative Exam Narrative: GEN: Fatigued-appearing middle-aged female, Alert and oriented x 3 HEENT:NC, Face symmetric CHEST: Respiratory excursions symmetric, diminished but CTAB CV: Mildly tachycardic with regular rhythm, no M/R/G ABD: Soft, mild upper abdominal tenderness to palpation, nondistended, BT present in all 4 quadrants, body habitus limits exam EXTR: warm, well perfused, no C/C/E SKIN: warm and dry, no rash NEURO: Alert and oriented x 3, nonfocal Objective Labs 09/04/23 05:45 09/04/23 05:45 Labs: Laboratory Results - last 24 hr 09/04/23 05:45 WBC 10.4 RBC 3.88 L Hgb 12.5 Hct 36.8 MCV 94.8 MCH 32.3 MCHC 34.1 RDW 14.5 Plt Count 268 Neut % (Auto) 39.7 L Lymph % (Auto) 42.2 H [place] % (Auto) 13.1 Eos % (Auto) 4.6 H Baso % (Auto) 0.4 Neut # (Auto) 4100 Lymph # (Auto) 4400 [place] # (Auto) 1400 H Eos # (Auto) 500 H Baso # (Auto) 0 Sodium 136 L Potassium 3.9 Chloride 104 Carbon Dioxide 26 BUN 14 Creatinine 0.79 Estimated GFR > 60 BUN/Creatinine Ratio 17.7 Glucose 128 H Calcium 8.9 PFSH Medical History Cervical radiculopathy Chronic pain of left knee BMI 40.0-44.9, adult Asperger syndrome Nocturnal leg cramps Crohn's disease Anemia, unspecified Abnormal mammogram Cervical cancer screening Anxiety Seizures (~2004) Psoriatic arthritis (~2015) ADHD (~1985) Fibromyalgia (~2007) Ovarian cyst (~1999) Irritable bowel syndrome (~1993) Surgical History Hx of hysterectomy History of knee surgery (~2004) Anesthesia History of cholecystectomy (~2004) Family History Father Esophageal cancer Mother Poor health Breast cancer Family/Other Breast cancer Family/Other Lymphoma Social History household members: spouse and children Smoking Status: Never smoker alcohol intake: current substance use type: marijuana (edible at night ) Assessment & Plan Assessment & Plan narrative: 1. Bacteremia Upon review, it appears this was all contaminant. Will discontinue cefepime. Follow-up cultures have been negative thus far. 2. Pleuritic chest pain Likely an inflammatory reaction to her recent illness. She did have improvement with steroids previously. She was restarted on steroids on admission. Would recommend a prolonged taper. She did get relief with IV morphine, but was very nauseated and did not tolerate hydrocodone. Will add IV Toradol x1 today. Encouraged her to continue using incentive spirometry. Recommended she try to increase her breath each time she does it to help with gradually improving her tidal volume. 3. Psoriatic arthritis/Crohn's disease Currently off Humira and methotrexate. Recommended she defer next week's dose as well. I do not expect a significant flare-up she will remain on steroids during that time. 4. Hyponatremia Mild at 136. Code status Full Prophylaxis On Lovenox Disposition Anticipate discharge tomorrow Quality VTE Deep Vein Thrombosis/Pulmonary Embolism Present on Admission: No
[2023-09-04] MEDS: SODIUM CHLORIDE 0.9% FLUSH 10 ML IV (21:49)
[2023-09-04] MEDS: LORazepam 0.5 MG TABLET PO (21:58)
[2023-09-05 01:00] VITALS: O2SAT 95
[2023-09-05 04:05] VITALS: BP 110/65; PULSE 85; RESP 18; TEMP 36; O2SAT 93
[2023-09-05 08:00] VITALS: BP 142/78; PULSE 76; RESP 18; TEMP 36.1; O2SAT 94
[2023-09-05 09:00] VITALS: O2SAT 94
[2023-09-05 09:03] VITALS: PULSE 78; RESP 16; O2SAT 94
[2023-09-05] MEDS: LORazepam 0.5 MG TABLET PO (09:04)
[2023-09-05] MEDS: predniSONE 20 MG TABLET 40 MG PO (09:04)
[2023-09-05] MEDS: ACETAMINOPHEN 325 MG TABLET 650 MG PO (09:04)
[2023-09-05] MEDS: ENOXAPARIN 40 MG/0.4 ML SYRINGE SUBCUT (09:04)
[2023-09-05] MEDS: FLUTICASONE 120 SPRAY/16 GM SPRAY.SUSP NASAL (09:05)
[2023-09-05] MEDS: ONDANSETRON 4 MG ODT PO (09:11)
--- NOTE | 2023-09-05 12:56 | CM.DPC ---
DCP Continued WELT MAKER reviewed EMR. Pt is indep at home and has spouse support. Per RN, likely to dc today. No CM needs identified at this time. Plan: home when medically stable, likely today, with family support. CM team will continue to follow as needed. Regla Glass, MARINA
--- NOTE | 2023-09-05 13:21 | P.DS_ITS ---
History of Present Illness History of Present Illness Chief complaint: SOB/pnemonia follow up/from primary care Narrative: 48-year-old female with Crohn's disease and psoriasis/psoriatic arthritis on Humira and methotrexate who developed cold-like symptoms in early July. She notes for about 1 week her taste seemed altered. She did not do a COVID test. Since that time, she is noted increasing pleuritic chest pain. She describes it like burning Juan Diego's in her chest. It also hurts to take a deep breath. She is been excessively fatigued. She notes shortness of breath with activity as well as tachycardia with activity. She states she typically works out 6 days a week and this is very atypical for her. She was seen in the walk-in clinic on August 24 and was given steroids and Tessalon. Just before discharge, she developed increasing symptoms and was referred to the emergency department. In the emergency department a chest CT was done which showed bilateral ground-glass opacities. Blood cultures were taken as well. She was discharged on amoxicillin 500 mg 3 times a day for 10 days and azithromycin 250 mg for 5 days. Blood culture subsequently resulted with 1 bottle growing Acinetobacter, felt to be a contaminant. She followed up with her family doctor on September 03 and overall felt she was not improving. Her family practitioner referred her back to the emergency department. Patient reports she feels no worse than she did during her last ER visit. She does note that she does not feel significantly improved. She did report that when she was on a brief course of prednisone from the walk-in clinic, her symptoms were relieved. She has not had methotrexate or Humira this week but did take them last week. She also complains of some night sweats which are new over the past several weeks. She is post surgical menopause. However, she is not on any hormone replacement therapy. Upon further review, blood cultures from August 24 did reveal staph hominis in 1 bottle, felt to be contaminant. Another bottle revealed micrococcus and Acinetobacter, also felt to be contaminant. Blood cultures drawn on September 03 are negative to date. Discharge Providers Provider Date of admission: 09/03/23 19:32 Discharge Date: 09/05/23 Primary care physician: Saman Rainey, DO Discharge provider: Jaden Almodovar MD Summary Hospital Course Discharge Diagnosis: 1. Acute pleurisy 2. Pneumonia, resolved 3. History of RA 4. Recent positive blood cultures, likely contaminants Hospital Course: Pt was admitted due to severe pleuritic chest pain. Her previous CTA was neg for P.E. but showed bilat pneumonia. Her current CXR is normal. EKG did not show any ST changes. Her pleuritic central pain somewhat improved with IV morphine, prednisone, toradol. She remained afebrile with normal sats. She is discharged hoem on prednisone taper and will follow up with her PCP. Status at Discharge Cognitive/behavioral status at discharge: oriented Functional status at discharge: independent ambulation Overall status at discharge: patient is progressing back to baseline Exam Vital Signs (past 8 hours): - 09/05/23 08:00 09/05/23 09:00 09/05/23 09:03 Temperature 97.0 F L Pulse Rate 76 78 Respiratory Rate 18 16 Blood Pressure 142/78 H Pulse Oximetry 94 94 94 Oxygen Delivery Method Room Air Room Air Oxygen Flow Rate 0 Oxygen Delivery Method Room Air Oxygen Flow Rate 0 Narrative Exam Narrative: Gen: alert, NAD Lungs: clear CV: regular, no urmur, no rub Ext: no edema Objective Labs 09/04/23 05:45 09/04/23 05:45 [facility] Medical History Cervical radiculopathy Chronic pain of left knee BMI 40.0-44.9, adult Asperger syndrome Nocturnal leg cramps Crohn's disease Anemia, unspecified Abnormal mammogram Cervical cancer screening Anxiety Seizures (~2004) Psoriatic arthritis (~2015) ADHD (~1985) Fibromyalgia (~2007) Ovarian cyst (~1999) Irritable bowel syndrome (~1993) Surgical History Hx of hysterectomy History of knee surgery (~2004) Anesthesia History of cholecystectomy (~2004) Family History Father Esophageal cancer Mother Poor health Breast cancer Family/Other Breast cancer Family/Other Lymphoma Social History household members: spouse and children Smoking Status: Never smoker alcohol intake: current substance use type: marijuana (edible at night ) Discharge Plan Discharge Plan Patient Disposition: Home Provider Discharge Comment: I have prescribed 8 more days of prednisone taper for treatment of pleurisy (that amounts to 10 days total of prednisone including the 2 days in hospital). You can go back on celecoxib after you stop the prednisone. You may take acetaminophen (Tylenol) as needed. Skip next dose of methotrexate. See your PCP later this week. Discharge orders & Medications Prescriptions: New prednisone 20 mg tablet See Rx Instructions .ROUTE .COMPLEX Qty: 11 0RF Rx Instructions: Take 2 tablets (40 mg) for 4 days, 1 tablet (20 mg) for 2 days, 1/2 tablet (10 mg) for 2 days then stop. ondansetron 8 mg tablet,disintegrating 8 mg PO Q8H PRN (Reason: nausea and vomiting) Qty: 20 0RF Continued cholecalciferol (vitamin D3) 1,250 mcg (50,000 unit) tablet 1,250 mcg PO QWEEK Qty: 8 0RF Advair HFA 45-21 mcg/actuation HFA aerosol inhaler See Rx Instructions .ROUTE .COMPLEX Qty: 12 11RF Dose Instruction: INHALE 2 PUFFS INTO THE LUNGS TWICE DAILY FOR ASTHMA Rx Instructions: INHALE 2 PUFFS INTO THE LUNGS TWICE DAILY FOR ASTHMA albuterol sulfate 2.5 mg /3 mL (0.083 %) solution for nebulization 2.5 mg inhalation Q4-6H PRN (Reason: shortness of breath or wheezing) Qty: 90 0RF (DME) nebulizers [AeroEclipse XL Nebulizer] [facility] [place] See Rx Instructions .Route Qty: 1 0RF Rx Instructions: As directed albuterol sulfate 90 mcg/actuation HFA aerosol inhaler 2 puff inhalation Q4-6H PRN (Reason: shortness of breath or wheezing) Qty: 18 5RF Rx Instructions: please dispense with spacer fluticasone propionate [Flonase Allergy Relief] 50 mcg/actuation spray,suspension 1 spray NASAL DAILY Qty: 19.8 0RF Rx Instructions: administer into each nostril adalimumab 40 mg/0.4 mL pen injector kit See Rx Instructions SUBCUT .COMPLEX Rx Instructions: inject one - 40 mg/0.4 mL pen every 2 weeks SUBCUT celecoxib 100 mg capsule 100 mg PO BID methotrexate sodium 2.5 mg tablet 2.5 mg PO Q2W Discontinued amoxicillin 500 mg capsule 500 mg PO TID Qty: 30 0RF Follow up/Referrals: Saman Rainey DO [Primary Care Provider] - Diet/Activity/Treatments Diet: Diet as Tolerated Visit Report/Discharge Packet Stand Alone Forms: Patient Portal/API, Stroke Signs & Symptoms Discharge Data Primary Care Provider: Saman Rainey Attending Provider: Collin Baumann Admit Date/Time: 09/03/23 19:32 Quality VTE Deep Vein Thrombosis/Pulmonary Embolism Present on Admission: No
--- NOTE | 2023-09-05 13:29 | PC.NURSE ---
Day shift: ASHLEY Mendez went over discharge instructions with patient and answered all questions. PIV d/c'ed prior to discharge. All belongings with patient. ASHLEY Mendez escorted patient via wheelchair to exit where picked her up.
== END 2023-09-05 13:00 | disposition home or self-care (01) ==
LOC: ED 19:04 → AC 19:33
PROVIDERS: Emergency Medicine; Admitting Provider Internal Medicine; Emergency Provider Emergency Medicine; PCP Family Medicine; Referring Provider Emergency Medicine; Visit Provider Internal Medicine
DX: R09.1 Pleurisy (principal); L40.50 Arthropathic psoriasis, unspecified; K50.919 Crohn's disease, unspecified, with unspecified complications
CPT/HCPCS: 36415; 71045; 80048; 80053; 82550; 83605; 83880; 84145; 84484; 85025; 87040; 93005; 93010; 94640; 94760; 96365; 96366; 96372; 96375; 99284; G0378; J0692; J1650; J1885; J2270; J7613

== ENCOUNTER → 2023-11-21 10:00 | Outpatient (CLI) | payer OTHER, SELFPAY ==
[2023-09-03 20:44] VITALS: BMI 36.6
== END ==
PROVIDERS: PCP Family Medicine; Visit Provider Nurse Practitioner Family
DX: J02.9 Acute pharyngitis, unspecified (principal)
CPT/HCPCS: 87070; 87077; 87147

== ENCOUNTER → 2023-12-29 16:41 | Outpatient (CLI) | payer OTHER, SELFPAY ==
[2023-09-03 20:44] VITALS: BMI 36.6
[2023-12-29 17:28] LABS: Add Manual Diff / Slide Review NO; Basophils Absolute Auto 0 /uL (0-100); Basophils Percent Auto 0.2 % (0-2); Eosinophils Absolute Auto 600 /uL (0-450); Eosinophils Percent Auto 4.6 % (2-4); Hematocrit 42.4 % (36-46); Hemoglobin 14.5 g/dL (12.0-16.0); Lymphocytes Absolute Auto 3400 /uL (1100-4500); Lymphocytes Percent Auto 27.8 % (25-40); Mean Corpuscular HGB Conc 34.2 % (30-36); Mean Corpuscular Hemoglobin 32.8 PG (26-34); Mean Corpuscular Volume 95.9 fL (80-100); Monocytes Absolute Auto 1000 /uL (0-900); Monocytes Percent Auto 7.9 % (3-14); Neutrophils Absolute Auto 7200 /uL (1500-7000); Neutrophils Percent Auto 59.5 % (50-75); Platelet Count 302 X10^3/uL (150-400); Red Blood Cell Count 4.42 X10^6/uL (4.0-5.2); White Blood Cell Count 12.1 X10^3/uL (4.5-11.0)
[2023-12-29 17:29] LABS: Alanine Aminotransferase 25 IU/L (<35); Albumin 4.7 g/dL (3.5-5.0); Albumin Globulin Ratio 1.3 (1.0-2.8); Alkaline Phosphatase 70 U/L (38-126); Aspartate Aminotransferase 21 IU/L (14-36); BUN Creatinine Ratio 32.5 (6-22); Bilirubin Total 0.7 mg/dL (0.2-1.3); Blood Urea Nitrogen 26 mg/dL (7-17); C-Reactive Protein Quant 1.3 mg/dL (<1.0); Calcium 9.6 mg/dL (8.4-10.2); Carbon Dioxide 27 mmol/L (22-32); Chloride 104 mmol/L (98-107); Estimated Glomerular Filt Rate > 60 mL/min (>60); Globulin 3.7 g/dL (1.7-4.1); Glucose 100 mg/dL (70-100); HEMOLYSIS < 15 (0-50); Potassium 4.4 mmol/L (3.4-5.1); Sodium 138 mmol/L (137-145); Total Protein 8.4 g/dL (6.3-8.2)
[2023-12-29 17:54] LABS: Erythrocyte Sedimentation Rate 18 MM/HR (0-20)
== END ==
LOC: LAB 16:43
PROVIDERS: PCP Family Medicine; Referring Provider Internal Medicine Rheumatology; Visit Provider Internal Medicine Rheumatology
DX: L40.50 Arthropathic psoriasis, unspecified (principal); M79.7 Fibromyalgia; I40.9 Acute myocarditis, unspecified; K50.919 Crohn's disease, unspecified, with unspecified complications; M25.561 Pain in right knee; M25.562 Pain in left knee; G89.29 Other chronic pain; M79.641 Pain in right hand; D84.9 Immunodeficiency, unspecified
CPT/HCPCS: 36415; 80053; 85025; 85651; 86140

== ENCOUNTER → 2024-02-07 12:39 | Outpatient (CLI) | payer OTHER, SELFPAY ==
[2023-09-03 20:44] VITALS: BMI 36.6
[2024-02-07 13:20] LABS: Add Manual Diff / Slide Review NO; Basophils Absolute Auto 0 /uL (0-100); Basophils Percent Auto 0.5 % (0-2); Eosinophils Absolute Auto 500 /uL (0-450); Eosinophils Percent Auto 5.7 % (2-4); Hematocrit 39.2 % (36-46); Hemoglobin 13.4 g/dL (12.0-16.0); Lymphocytes Absolute Auto 2500 /uL (1100-4500); Mean Corpuscular HGB Conc 34.3 % (30-36); Mean Corpuscular Hemoglobin 32.8 PG (26-34); Mean Corpuscular Volume 95.7 fL (80-100); Monocytes Absolute Auto 600 /uL (0-900); Monocytes Percent Auto 6.8 % (3-14); Neutrophils Absolute Auto 5000 /uL (1500-7000); Platelet Count 293 X10^3/uL (150-400); Red Cell Distribution Width 13.1 % (11.6-14.8); White Blood Cell Count 8.6 X10^3/uL (4.5-11.0)
[2024-02-07 13:42] LABS: Alanine Aminotransferase 38 IU/L (<35); Albumin 4.5 g/dL (3.5-5.0); Albumin Globulin Ratio 1.4 (1.0-2.8); Alkaline Phosphatase 79 U/L (38-126); Aspartate Aminotransferase 23 IU/L (14-36); Bilirubin Total 0.4 mg/dL (0.2-1.3); Blood Urea Nitrogen 14 mg/dL (7-17); C-Reactive Protein Quant 1.2 mg/dL (<1.0); Calcium 9.1 mg/dL (8.4-10.2); Carbon Dioxide 25 mmol/L (22-32); Chloride 109 mmol/L (98-107); Estimated Glomerular Filt Rate > 60 mL/min (>60); Globulin 3.2 g/dL (1.7-4.1); Glucose 103 mg/dL (70-100); HEMOLYSIS < 15 (0-50); Potassium 4.4 mmol/L (3.4-5.1); Sodium 140 mmol/L (137-145); Total Protein 7.7 g/dL (6.3-8.2)
[2024-02-07 14:08] LABS: Erythrocyte Sedimentation Rate 25 MM/HR (0-20)
== END ==
PROVIDERS: PCP Family Medicine; Referring Provider Internal Medicine Rheumatology; Visit Provider Internal Medicine Rheumatology
DX: L40.50 Arthropathic psoriasis, unspecified (principal); L40.9 Psoriasis, unspecified; D84.9 Immunodeficiency, unspecified; K50.919 Crohn's disease, unspecified, with unspecified complications
CPT/HCPCS: 36415; 80053; 85025; 85651; 86140

== ENCOUNTER 2024-05-03 15:28 | Emergency (ER) | payer OTHER, SELFPAY ==
[2023-09-03 20:44] VITALS: BMI 36.6
[2024-05-03] VITALS (12 sets, daily range): BP systolic 126–154; BP diastolic 71–80; PULSE 66–88; RESP 12–24; TEMP 37.1; O2SAT 97–100; BMI 34.4
--- NOTE | 2024-05-03 15:45 | EKG_ITS ---
[facility] [address] [place] [address] Test Date: 2024-05-03 Pat Name: Amparo Monreal Department: Room: Gender: Female [employer] Work[employer]: : 1975 Requested By: Order Number: [id number] Reading MD: Jp Britton MD Measurements Intervals [place] Rate: 72 P: 50 IA: 166 QRS: 3 QRSD: 90 T: 26 QT: 380 QTc: 416 Interpretive Statements Normal sinus rhythm Electronically Signed On 05-04-2024 7:36:16 PDT by Jp Britton MD
--- NOTE | 2024-05-03 16:26 | DI.RAD.S_ITS ---
PROCEDURE: XR CHEST 2V INDICATIONS: chest pain/ covid + TECHNIQUE: 2 views of the chest were acquired. COMPARISON: [facility], CR, XR CHEST 1V, 09/03/2023, 15:14. [facility], CR, XR CHEST 2V, 08/24/2023, 17:48. FINDINGS: Surgical changes and devices: None. Lungs and pleura: No dense consolidation or pleural effusion Mediastinum: Normal heart size Bones and chest wall: Unremarkable IMPRESSION: No acute radiographic abnormality. Dictated by: Petar Devine M.D. on 05/03/2024 at 17:14 Approved by: Petar Devine M.D. on 05/03/2024 at 17:15
--- NOTE | 2024-05-03 19:26 | ED.CHESTPAIN ---
HPI - Chest Pain General Chief Complaint: Chest Pain Stated Complaint: chest pressure, tightness, Covid + Time Seen by Provider: 05/03/24 18:03 History of Present Illness HPI narrative: 48-year-old female without history of known coronary artery disease, recent diagnosis acute COVID illness 6 days ago, now with left paracentral pleuritic chest discomfort no radiation of symptoms to the back, neck or arm. No associated palpitations or dizziness or syncope or near-syncope. Denies history of previous blood clots, denies pain or swelling to unilateral extremity. Denies lower legs swelling. Related Data Home Medications Medication Instructions Recorded Confirmed adalimumab 40 mg/0.4 mL See Rx Instructions SUBCUT .COMPLEX 12/23/22 11/21/23 subcutaneous pen kit celecoxib 100 mg capsule 100 mg PO BID 12/23/22 11/21/23 methotrexate sodium 2.5 mg tablet 2.5 mg PO Q2W 09/03/23 11/21/23 Previous Rx's Medication Instructions Recorded fluticasone propionate 50 1 spray intranasal DAILY #19.8 mL 07/21/19 mcg/actuation nasal spray,suspension (Flonase Allergy Relief) cholecalciferol (vitamin D3) 1,250 1,250 mcg PO QWEEK #8 tabs 12/23/21 mcg (50,000 unit) tablet fluticasone propionate 45 See Rx Instructions .Route 03/15/23 mcg-salmeterol 21 mcg/actuation .COMPLEX #12 grams HFA inhaler (Advair HFA) albuterol sulfate 90 mcg/actuation 2 puff inhalation Q4-6H PRN 08/27/23 aerosol inhaler shortness of breath or wheezing #18 grams nebulizers (AeroEclipse XL #1 ea 08/27/23 Nebulizer) ondansetron 8 mg disintegrating 8 mg PO Q8H PRN nausea and 09/05/23 tablet vomiting #20 tabs prednisone 20 mg tablet See Rx Instructions .Route 09/05/23 .COMPLEX #11 tabs albuterol sulfate 2.5 mg/3 mL 2.5 mg (3 mL) inhalation Q4-6H PRN 09/09/23 (0.083 %) solution for nebulization shortness of breath or wheezing #90 mL Allergies Allergy/AdvReac Type Severity Reaction Status Date / Time No Known Drug Allergies Allergy Verified 11/21/23 10:18 Review of Systems Review of Systems Narrative: see HPI Patient History Medical History (Updated 05/03/24 @ 20:22 by Sina Ferugson MD) PID (acute pelvic inflammatory disease) Cervical radiculopathy Chronic pain of left knee BMI 40.0-44.9, adult Asperger syndrome Nocturnal leg cramps Crohn's disease Anemia, unspecified Abnormal mammogram Cervical cancer screening Anxiety Seizures (~2004) Psoriatic arthritis (~2015) ADHD (~1985) Fibromyalgia (~2007) Ovarian cyst (~1999) Irritable bowel syndrome (~1993) Surgical History Hx of hysterectomy History of knee surgery (~2004) Anesthesia History of cholecystectomy (~2004) Family History Father Esophageal cancer Mother Poor health Breast cancer Family/Other Breast cancer Family/Other Lymphoma Social History household members: spouse and children Smoking Status: Never smoker alcohol intake: current substance use type: marijuana (edible at night ) Smoking Status: Never smoker alcohol intake frequency: holidays/special occasions only Substance Use Type: marijuana Exam Narrative Exam Narrative: GENERAL: Well-developed patient, in mild distress. HEAD: Atraumatic. Normocephalic. EYES: Pupils equal round and reactive. Extraocular motions intact. No scleral icterus. No injection or drainage. ENT: Nose without bleeding, purulent drainage. Throat without erythema, tonsillar hypertrophy or exudate. Airway patent. NECK: Trachea midline. Non tender CARDIOVASCULAR: Regular rate and rhythm without murmurs, gallops, or rubs. RESPIRATORY: Clear to auscultation. Breath sounds equal bilaterally. No wheezes, rales, or rhonchi. No chest wall tenderness on exam. GASTROINTESTINAL: Abdomen soft, non-tender, nondistended. EXTREMITIES: No edema or joint tenderness. BACK: Nontender without deformity or crepitance. No flank tenderness. NEURO: AOx3. SKIN: No rash or erythema of visible areas Initial Vital Signs Initial Vital Signs: Vital Signs Temperature 98.7 F 05/03/24 15:37 Pulse Rate 88 05/03/24 15:37 Respiratory Rate 16 05/03/24 15:37 Blood Pressure 154/79 H 05/03/24 15:37 Pulse Oximetry 97 05/03/24 15:37 Oxygen Delivery Method Room Air 05/03/24 15:37 Course Orders Ordered: ED Orders 05/03/24 19:48 CBC Auto Diff [Complete Blood Count AUTO DIFF] Stat CMP [Comprehensive Metabolic Panel] Stat D Dimer Stat Discontinued Medications Albuterol (Albuterol 2.5 Mg/3 Ml Neb (Adult)) 2.5 mg INH NOW ONE Stop: 05/03/24 19:31 Last Admin: 05/03/24 19:42 Dose: 2.5 mg Documented By: MR Vital Signs Vital signs: Vital Signs - 8 hr 05/03/24 19:00 05/03/24 19:30 05/03/24 20:00 Pulse Rate 71 66 74 Respiratory Rate 12 15 24 Blood Pressure 130/79 Pulse Oximetry 98 98 100 05/03/24 20:27 05/03/24 20:27 Pulse Rate 81 Respiratory Rate Blood Pressure 153/71 H Pulse Oximetry MDM - Chest Pain Lab Data Attestation: I reviewed the patient's lab results. 05/03/24 19:48 05/03/24 19:48 Labs: Lab Results 05/03/24 Range/Units 19:48 WBC 8.8 (4.5-11.0) X10^3/uL RBC 4.35 (4.0-5.2) X10^6/uL Hgb 14.1 (12.0-16.0) g/dL Hct 41.1 (36-46) % MCV 94.5 (80-100) fL MCH 32.5 (26-34) PG MCHC 34.4 (30-36) % RDW 13.3 (11.6-14.8) % Plt Count 224 (150-400) X10^3/uL Neut % (Auto) 46.5 L (50-75) % Lymph % (Auto) 39.0 (25-40) % Fountain % (Auto) 9.5 (3-14) % Eos % (Auto) 4.7 H (2-4) % Baso % (Auto) 0.3 (0-2) % Neut # (Auto) 4100 (7522-6622) /uL Lymph # (Auto) 3400 (3049-8607) /uL Fountain # (Auto) 800 (0-900) /uL Eos # (Auto) 400 (0-450) /uL Baso # (Auto) 0 (0-100) /uL D-Dimer 387 (<500) ng/ml Sodium 139 (137-145) mmol/L Potassium 4.4 (3.4-5.1) mmol/L Chloride 107 (98-107) mmol/L Carbon Dioxide 25 (22-32) mmol/L BUN 16 (7-17) mg/dL Creatinine 0.78 (0.52-1.04) mg/dL Estimated GFR > 60 (>60) mL/min BUN/Creatinine Ratio 20.5 (6-22) Glucose 89 (70-100) mg/dL Calcium 9.4 (8.4-10.2) mg/dL Total Bilirubin 0.6 (0.2-1.3) mg/dL AST 31 (14-36) IU/L ALT 47 H (<35) IU/L Alkaline Phosphatase 71 (38-126) U/L Total Protein 6.9 (6.3-8.2) g/dL Albumin 4.2 (3.5-5.0) g/dL Globulin 2.7 (1.7-4.1) g/dL Albumin/Globulin Ratio 1.6 (1.0-2.8) ECG Data Attestation: I personally reviewed and interpreted this ECG as follows: Interpretation: Normal sinus rhythm with rate of 72, no obvious ST segment elevation or depression changes. NE 166, QRS 90, QTC 416. MDM Narrative Medical decision making narrative: 48-year-old female with recent diagnosis COVID 6 days ago, now with anterior chest discomfort. DX consider COVID related chest wall discomfort, underlying pneumonia superinfection with bacteria, empyema, pneumothorax, ACS, pulmonary embolus, other. Chest x-ray unremarkable, EKG unremarkable. Blood tests requested after discussion, including dimer Trial of SVN, no significant improvement. Patient has inhalers at home. D-dimer negative, hold CTA study for now, patient agrees We did discuss further obtaining CT angiogram despite low dimer, however patient as no tachycardia, no oxygen requirement, no lower extremity edema or pain, offered but declined for now. Consider use of aspirin daily for analgesia and antiplatelet effects. Recheck symptoms with regular provider advised in 2 days. Return precautions discussed Discharge Plan Departure Patient Disposition: Home Clinical Impression: Chest pain, COVID-19 Activity Restrictions/Additional Instructions: COVID illness diagnosis with family members 6 days ago, now with chest discomfort through the day today, chest x-ray unremarkable, EKG and blood testing not suggestive of heart attack. Additional blood testing sent which was not suggestive of abnormal clotting that might also be associated with COVID. We did discuss CT angiogram chest imaging, we will hold that study for now. Consider use of inhaler. Consider use of aspirin and/or ibuprofen for discomfort. Recheck symptoms with your regular doctor if not improved in the next couple of days. Return to this/nearest emergency department for any change worsening symptoms or any concerns prior Prescriptions: No Action cholecalciferol (vitamin D3) 1,250 mcg (50,000 unit) tablet 1,250 mcg PO QWEEK Qty: 8 0RF Advair HFA 45-21 mcg/actuation HFA aerosol inhaler See Rx Instructions .ROUTE .COMPLEX Qty: 12 11RF Dose Instruction: INHALE 2 PUFFS INTO THE LUNGS TWICE DAILY FOR ASTHMA Rx Instructions: INHALE 2 PUFFS INTO THE LUNGS TWICE DAILY FOR ASTHMA (DME) nebulizers [AeroEclipse XL Nebulizer[place] [facility] [place] Rx Instructions .Route Qty: 1 0RF Rx Instructions: As directed albuterol sulfate 90 mcg/actuation HFA aerosol inhaler 2 puff inhalation Q4-6H PRN (Reason: shortness of breath or wheezing) Qty: 18 5RF Rx Instructions: please dispense with spacer fluticasone propionate [Flonase Allergy Relief] 50 mcg/actuation spray,suspension 1 spray NASAL DAILY Qty: 19.8 0RF Rx Instructions: administer into each nostril adalimumab 40 mg/0.4 mL pen injector kit See Rx Instructions SUBCUT .COMPLEX Rx Instructions: inject one - 40 mg/0.4 mL pen every 2 weeks SUBCUT celecoxib 100 mg capsule 100 mg PO BID albuterol sulfate 2.5 mg /3 mL (0.083 %) solution for nebulization 2.5 mg inhalation Q4-6H PRN (Reason: shortness of breath or wheezing) Qty: 90 0RF methotrexate sodium 2.5 mg tablet 2.5 mg PO Q2W prednisone 20 mg tablet See Rx Instructions .ROUTE .COMPLEX Qty: 11 0RF Rx Instructions: Take 2 tablets (40 mg) for 4 days, 1 tablet (20 mg) for 2 days, 1/2 tablet (10 mg) for 2 days then stop. ondansetron 8 mg tablet,disintegrating 8 mg PO Q8H PRN (Reason: nausea and vomiting) Qty: 20 0RF Referrals: Saman Rainey DO [Primary Care Provider] - Stand Alone Forms: Patient Portal/API
[2024-05-03] MEDS: ALBUTEROL 2.5 MG/3 ML NEB (ADULT) INH (19:42)
[2024-05-03 20:10] LABS: D Dimer 387 ng/ml (<500)
[2024-05-03 20:13] LABS: Alanine Aminotransferase 47 IU/L (<35); Albumin 4.2 g/dL (3.5-5.0); Albumin Globulin Ratio 1.6 (1.0-2.8); Alkaline Phosphatase 71 U/L (38-126); Aspartate Aminotransferase 31 IU/L (14-36); BUN Creatinine Ratio 20.5 (6-22); Bilirubin Total 0.6 mg/dL (0.2-1.3); Blood Urea Nitrogen 16 mg/dL (7-17); Calcium 9.4 mg/dL (8.4-10.2); Carbon Dioxide 25 mmol/L (22-32); Chloride 107 mmol/L (98-107); Estimated Glomerular Filt Rate > 60 mL/min (>60); Globulin 2.7 g/dL (1.7-4.1); Glucose 89 mg/dL (70-100); HEMOLYSIS < 15 (0-50); Potassium 4.4 mmol/L (3.4-5.1); Sodium 139 mmol/L (137-145); Total Protein 6.9 g/dL (6.3-8.2)
[2024-05-03 20:22] LABS: Add Manual Diff / Slide Review NO; Basophils Absolute Auto 0 /uL (0-100); Basophils Percent Auto 0.3 % (0-2); Eosinophils Absolute Auto 400 /uL (0-450); Eosinophils Percent Auto 4.7 % (2-4); Hematocrit 41.1 % (36-46); Hemoglobin 14.1 g/dL (12.0-16.0); Lymphocytes Absolute Auto 3400 /uL (1100-4500); Mean Corpuscular HGB Conc 34.4 % (30-36); Mean Corpuscular Hemoglobin 32.5 PG (26-34); Mean Corpuscular Volume 94.5 fL (80-100); Monocytes Absolute Auto 800 /uL (0-900); Monocytes Percent Auto 9.5 % (3-14); Neutrophils Absolute Auto 4100 /uL (1500-7000); Neutrophils Percent Auto 46.5 % (50-75); Platelet Count 224 X10^3/uL (150-400); Red Blood Cell Count 4.35 X10^6/uL (4.0-5.2); Red Cell Distribution Width 13.3 % (11.6-14.8); White Blood Cell Count 8.8 X10^3/uL (4.5-11.0)
== END 2024-05-03 20:29 | disposition home or self-care (01) ==
PROVIDERS: Emergency Provider Emergency Medicine; PCP Family Medicine
DX: R07.9 Chest pain, unspecified (principal); U07.1 COVID-19
CPT/HCPCS: 71046; 80053; 85025; 85379; 93005; 93010; 99283; 99284; J7613

== ENCOUNTER → 2024-11-27 08:49 | Outpatient (CLI) | payer OTHER, SELFPAY ==
[2023-09-03 20:44] VITALS: BMI 36.6
[2024-11-27 09:36] LABS: Add Manual Diff / Slide Review NO; Basophils Absolute Auto 0 /uL (0-100); Basophils Percent Auto 0.5 % (0-2); Eosinophils Absolute Auto 900 /uL (0-450); Eosinophils Percent Auto 12.7 % (2-4); Hematocrit 42.7 % (36-46); Hemoglobin 14.7 g/dL (12.0-16.0); Lymphocytes Absolute Auto 1600 /uL (1100-4500); Lymphocytes Percent Auto 22.9 % (25-40); Mean Corpuscular HGB Conc 34.4 % (30-36); Mean Corpuscular Hemoglobin 32.1 PG (26-34); Mean Corpuscular Volume 93.3 fL (80-100); Monocytes Absolute Auto 500 /uL (0-900); Neutrophils Absolute Auto 4100 /uL (1500-7000); Neutrophils Percent Auto 56.9 % (50-75); Platelet Count 243 X10^3/uL (150-400); Red Blood Cell Count 4.57 X10^6/uL (4.0-5.2); Red Cell Distribution Width 12.5 % (11.6-14.8); White Blood Cell Count 7.1 X10^3/uL (4.5-11.0)
[2024-11-27 09:58] LABS: Alanine Aminotransferase 19 IU/L (<35); Albumin 4.4 g/dL (3.5-5.0); Albumin Globulin Ratio 1.5 (1.0-2.8); Alkaline Phosphatase 82 U/L (38-126); Aspartate Aminotransferase 18 IU/L (14-36); BUN Creatinine Ratio 29.3 (6-22); Bilirubin Total 0.7 mg/dL (0.2-1.3); Blood Urea Nitrogen 27 mg/dL (7-17); C-Reactive Protein Quant < 0.5 mg/dL (<1.0); Calcium 9.3 mg/dL (8.4-10.2); Carbon Dioxide 22 mmol/L (22-32); Chloride 105 mmol/L (98-107); Cholesterol 185 mg/dL (140-199); Estimated Glomerular Filt Rate > 60 mL/min (>60); Globulin 2.9 g/dL (1.7-4.1); Glucose 95 mg/dL (70-100); HDL Cholesterol 55 mg/dL (40-60); HEMOLYSIS < 15 (0-50); LDL Cholesterol Calculated 112 mg/dL (<100); Potassium 4.8 mmol/L (3.4-5.1); Sodium 138 mmol/L (137-145); Total Protein 7.3 g/dL (6.3-8.2); Triglycerides 88 mg/dL (35-150)
[2024-11-27 10:10] LABS: Erythrocyte Sedimentation Rate 9 MM/HR (0-20)
== END ==
PROVIDERS: PCP Family Medicine; Referring Provider Family Medicine; Visit Provider Family Medicine
DX: L40.50 Arthropathic psoriasis, unspecified (principal); Z68.41 Body mass index [BMI] 40.0-44.9, adult; K50.90 Crohn's disease, unspecified, without complications; K76.0 Fatty (change of) liver, not elsewhere classified; M79.7 Fibromyalgia
CPT/HCPCS: 36415; 80053; 80061; 85025; 85651; 86140

== ENCOUNTER → 2025-08-06 08:22 | Outpatient (CLI) | payer OTHER, SELFPAY ==
[2024-12-22 09:16] VITALS: BMI 36.6
[2025-08-06 08:52] LABS: Add Manual Diff / Slide Review NO; Hematocrit 42.4 % (36-46); Hemoglobin 14.5 g/dL (12.0-16.0); Lymphocytes Absolute Auto 2300 /uL (1100-4500); Mean Corpuscular HGB Conc 34.3 % (30-36); Mean Corpuscular Hemoglobin 31.6 PG (26-34); Mean Corpuscular Volume 92.1 fL (80-100); Platelet Count 220 X10^3/uL (150-400)
[2025-08-06 09:23] LABS: Alanine Aminotransferase 17 IU/L (<35); Albumin 4.3 g/dL (3.5-5.0); Albumin Globulin Ratio 1.6 (1.0-2.8); Alkaline Phosphatase 76 U/L (38-126); Blood Urea Nitrogen 28 mg/dL (7-17); Calcium 9.2 mg/dL (8.4-10.2); Carbon Dioxide 25 mmol/L (22-32); Chloride 104 mmol/L (98-107); Cholesterol 156 mg/dL (140-199); Estimated Glomerular Filt Rate > 60 mL/min (>60); Globulin 2.7 g/dL (1.7-4.1); Glucose 112 mg/dL (70-99); HDL Cholesterol 53 mg/dL (40-60); HEMOLYSIS 20 (0-50); Potassium 4.5 mmol/L (3.4-5.1); Sodium 139 mmol/L (137-145); Total Protein 7.0 g/dL (6.3-8.2); Triglycerides 84 mg/dL (35-150)
[2025-08-06 09:47] LABS: TSH w/ Reflex to FT4 1.30 uIU/mL (0.47-4.68)
== END ==
PROVIDERS: PCP Family Medicine; Referring Provider Family Medicine; Visit Provider Physician Assistant
DX: L40.50 Arthropathic psoriasis, unspecified (principal); K50.919 Crohn's disease, unspecified, with unspecified complications; R59.0 Localized enlarged lymph nodes; R16.1 Splenomegaly, not elsewhere classified; K76.0 Fatty (change of) liver, not elsewhere classified
CPT/HCPCS: 36415; 80053; 80061; 84443; 85025; 85651; 86140

== ENCOUNTER → 2025-08-09 10:06 | Outpatient (CLI) | payer OTHER, SELFPAY ==
[2024-12-22 09:16] VITALS: BMI 36.6
[2025-08-09 11:22] LABS: Alanine Aminotransferase 16 IU/L (<35); Albumin 4.5 g/dL (3.5-5.0); Albumin Globulin Ratio 1.6 (1.0-2.8); Alkaline Phosphatase 84 U/L (38-126); Blood Urea Nitrogen 23 mg/dL (7-17); Calcium 9.3 mg/dL (8.4-10.2); Carbon Dioxide 21 mmol/L (22-32); Chloride 108 mmol/L (98-107); Estimated Glomerular Filt Rate > 60 mL/min (>60); Globulin 2.8 g/dL (1.7-4.1); Glucose 115 mg/dL (70-99); HEMOLYSIS < 15 (0-50); Potassium 5.0 mmol/L (3.4-5.1); Sodium 139 mmol/L (137-145); Total Protein 7.3 g/dL (6.3-8.2)
[2025-08-09 11:26] LABS: Hemoglobin A1C% w Est Avg Glu 5.4 % (4.0-6.0)
== END ==
PROVIDERS: PCP Family Medicine; Referring Provider Family Medicine; Visit Provider Family Medicine
DX: R79.9 Abnormal finding of blood chemistry, unspecified (principal); R73.01 Impaired fasting glucose; R79.82 Elevated C-reactive protein (CRP); R53.82 Chronic fatigue, unspecified; R53.81 Other malaise; N64.4 Mastodynia
CPT/HCPCS: 36415; 76642; 77066; 80053; 82043; 82570; 83036; 86140; G0279

== ENCOUNTER 2025-08-29 10:44 | Emergency (ER) | payer OTHER, SELFPAY ==
[2024-12-22 09:16] VITALS: BMI 36.6
[2025-08-29 11:08] VITALS: BP 126/71; PULSE 91; RESP 18; TEMP 36.6; O2SAT 98; BMI 34.7
--- NOTE | 2025-08-29 11:11 | DI.RAD.S_ITS ---
PROCEDURE: XR CHEST 2V INDICATIONS: choked on vomit TECHNIQUE: 2 views of the chest were acquired. COMPARISON: [facility], CR, XR CHEST 2V, 05/03/2024, 16:31. [facility], CR, XR CHEST 1V, 09/03/2023, 15:14. FINDINGS: Surgical changes and devices: Cholecystectomy clips are faintly seen on the lateral view. Lungs and pleura: Lungs are clear. No focal infiltrates are seen. No pleural effusions or pneumothorax. Mediastinum: Mediastinal contours are normal. Heart size is normal. Bones and chest wall: No suspicious bony abnormalities. Soft tissues appear unremarkable. IMPRESSION: No focal infiltrates are seen. If there is strong clinical concern for developing aspiration pneumonia in this patient, please consider a short term followup examination, as aspiration pneumonia can have a delayed radiographic appearance. Dictated by: Anand Page M.D. on 08/29/2025 at 11:22 Approved by: Anand Page M.D. on 08/29/2025 at 11:23
--- NOTE | 2025-08-29 11:15 | ED.NAVMDI ---
HPI - Nausea/Vomiting/Diarrhea General Chief complaint: Nausea/Vomiting/Diarrhea Stated complaint: N/D Headache 1 day Time Seen by Provider: 08/29/25 11:05 Mode of arrival: Ambulatory History of Present Illness HPI Narrative: Ms. Monreal is a pleasant 50 year old female with a past medical history of asthma, Crohn's disease, fibromyalgia, autism spectrum disorder who presents to the emergency department for nausea, vomiting, diarrhea, headache, cough, fever since yesterday. Patient reports that she has not been feeling well for the last 3 days but last night she started vomiting, had a fever of 101, 2 episodes of nonbloody diarrhea, and is also now having a headache. Reports that she has been having nonbloody vomiting every hour today. She feels very dehydrated. Denies abdominal pain, dysuria, sore throat. Related Data Previous Rx's ?Medication ?Instructions ?Recorded fluticasone propionate 50 1 spray intranasal DAILY #19.8 mL 07/21/19 mcg/actuation nasal spray,suspension (Flonase Allergy Relief) albuterol sulfate 90 mcg/actuation 2 puff inhalation Q4-6H PRN 08/27/23 aerosol inhaler shortness of breath or wheezing #18 grams nebulizers (AeroEclipse XL #1 ea 08/27/23 Nebulizer) albuterol sulfate 2.5 mg/3 mL 2.5 mg (3 mL) inhalation Q4-6H PRN 09/09/23 (0.083 %) solution for nebulization shortness of breath or wheezing #90 mL fluticasone propionate 45 See Rx Instructions .Route 01/03/25 mcg-salmeterol 21 mcg/actuation .COMPLEX #12 grams HFA inhaler (Advair HFA) ondansetron 4 mg disintegrating 4 mg PO Q8H PRN nausea and 08/29/25 tablet vomiting #14 tabs Allergies Allergy/AdvReac Type Severity Reaction Status Date / Time No Known Drug Allergies Allergy Verified 08/14/25 08:56 Review of Systems Review of Systems ROS Unobtainable: All systems reviewed & are unremarkable except as noted in HPI and below Patient History Medical History Chronic fatigue and malaise Elevated C-reactive protein (CRP) Elevated fasting blood sugar Elevated BUN Tonsillitis Abnormal uterine bleeding COVID-19 PFO (patent foramen ovale) MCL sprain of left knee Chondromalacia patellae of left knee Cranial somatic dysfunction Frontal headache PID (acute pelvic inflammatory disease) Cervical radiculopathy Chronic pain of left knee BMI 40.0-44.9, adult Asperger syndrome Nocturnal leg cramps Crohn's disease Anemia, unspecified Abnormal mammogram Cervical cancer screening Anxiety Seizures (~2004) Psoriatic arthritis (~2015) ADHD (~1985) Fibromyalgia (~2007) Ovarian cyst (~1999) Irritable bowel syndrome (~1993) Surgical History History of knee surgery (~2004) Anesthesia History of cholecystectomy (~2004) Family History Father Esophageal cancer Mother Poor health Breast cancer Family/Other Breast cancer Family/Other Lymphoma Social History household members: spouse and children Smoking Status: Never smoker alcohol intake: current substance use type: marijuana Smoking Status: Never smoker alcohol intake frequency: holidays/special occasions only Exam Narrative Exam Narrative: GENERAL: 50 year old patient appears stated age. Well-developed patient, in no acute distress. HEAD: Atraumatic. Normocephalic. EYES: PERRL. Extraocular motions intact. No scleral icterus. No injection or drainage. ENT: Dry mucous membranes. NECK: Trachea midline. Cervical ROM intact. CARDIOVASCULAR: Regular rate and rhythm. RESPIRATORY: ?Nonlabored respirations. ?Speaking in clear, full sentences. ?Clear to auscultation. Breath sounds equal bilaterally. No wheezes, rales, or rhonchi. ? GASTROINTESTINAL: Abdomen soft, non-tender, nondistended. Bowel sounds present. EXTREMITIES: No LE edema. BACK: No CVA tenderness. NEURO: AOx3. ?Clear speech. ?Moves all 4 extremities appropriately. SKIN: No rash or erythema of visible areas. Initial Vital Signs Initial Vital Signs: Vital Signs Temperature 97.9 F 08/29/25 11:08 Pulse Rate 91 H 08/29/25 11:08 Respiratory Rate 18 08/29/25 11:08 Blood Pressure 126/71 08/29/25 11:08 Pulse Oximetry 98 08/29/25 11:08 Oxygen Delivery Method Room Air 08/29/25 11:08 Course Orders Ordered: ED Orders 08/29/25 11:11 Chest [XR chest 2V] Stat 08/29/25 11:24 Complete Blood Count AUTO DIFF Stat Comprehensive Metabolic Panel Stat Lipase Stat 08/29/25 12:10 Covid-19 + FLU A/B + RSV - PCR Stat Discontinued Medications Diphenhydramine HCl (Diphenhydramine 50 Mg/Ml Vial) 25 mg IV NOW ONE Stop: 08/29/25 11:13 Last Admin: 08/29/25 11:43 Dose: 25 mg Documented By: CATHERINE Sodium Chloride (Normal Saline 0.9%) 1,000 mls @ 1,000 mls/hr IV BOLUS ONE Stop: 08/29/25 12:11 Last Infusion: 08/29/25 13:17 Dose: Infused Documented By: Admin: 08/29/25 11:45 Dose: 1,000 mls/hr Documented By: CATHERINE Acetaminophen (Ofirmev) 1,000 mg in 100 mls @ 400 mls/hr IV NOW ONE Stop: 08/29/25 11:26 Last Infusion: 08/29/25 13:36 Dose: Infused Documented By: Admin: 08/29/25 11:45 Dose: 400 mls/hr Documented By: CATHERINE Ondansetron HCl (Ondansetron 4 Mg/2 Ml Inj) 4 mg IV NOW PRN PRN Reason: Nausea And Vomiting Ondansetron HCl (Ondansetron 4 Mg Odt) 4 mg PO NOW PRN PRN Reason: Nausea And Vomiting Prochlorperazine (Prochlorperazine 10 Mg/2 Ml Vial) 10 mg IV NOW ONE Stop: 08/29/25 11:13 Last Admin: 08/29/25 11:42 Dose: 10 mg Documented By: CATHERINE Vital Signs Vital signs: Vital Signs - 8 hr 08/29/25 11:08 08/29/25 11:42 08/29/25 12:24 Temperature 97.9 F Pulse Rate 91 H 91 H 91 H Respiratory Rate 18 18 Blood Pressure 126/71 126/72 110/58 L Pulse Oximetry 98 99 Oxygen Delivery Method Room Air Room Air 08/29/25 13:43 Temperature Pulse Rate 80 Respiratory Rate 17 Blood Pressure 124/72 Pulse Oximetry 97 Oxygen Delivery Method Room Air MDM - Nausea/Vomiting/Diarrhea Medical Records Attestation: I reviewed the patient's medical records. Lab Data 08/29/25 11:24 08/29/25 11:24 Labs: Lab Results 08/29/25 08/29/25 Range/Units 11:24 12:10 WBC 13.4 H (4.5-11.0) X10^3/uL RBC 4.71 (4.0-5.2) X10^6/uL Hgb 14.4 (12.0-16.0) g/dL Hct 42.8 (36-46) % MCV 91.0 (80-100) fL MCH 30.6 (26-34) PG MCHC 33.6 (30-36) % RDW 13.0 (11.6-14.8) % Plt Count 240 (150-400) X10^3/uL Neut % (Auto) 89.5 H (50-75) % Lymph % (Auto) 3.3 L (25-40) % [place] % (Auto) 6.1 (3-14) % Eos % (Auto) 0.7 L (2-4) % Baso % (Auto) 0.4 (0-2) % Neut # (Auto) 76916 H (4949-6081) /uL Lymph # (Auto) 400 L (1040-0222) /uL [place] # (Auto) 800 (0-900) /uL Eos # (Auto) 100 (0-450) /uL Baso # (Auto) 0 (0-100) /uL Sodium 137 (137-145) mmol/L Potassium 3.9 (3.4-5.1) mmol/L Chloride 103 (98-107) mmol/L Carbon Dioxide 22 (22-32) mmol/L BUN 15 (7-17) mg/dL Creatinine 0.73 (0.52-1.04) mg/dL Estimated GFR > 60 (>60) mL/min BUN/Creatinine Ratio 20.5 (6-22) Glucose 163 H (70-99) mg/dL Calcium 9.2 (8.4-10.2) mg/dL Total Bilirubin 1.0 (0.2-1.3) mg/dL AST 22 (14-36) IU/L ALT 29 (<35) IU/L Alkaline Phosphatase 87 (38-126) U/L Total Protein 8.5 H (6.3-8.2) g/dL Albumin 4.9 (3.5-5.0) g/dL Globulin 3.6 (1.7-4.1) g/dL Albumin/Globulin Ratio 1.4 (1.0-2.8) Lipase 41 (23-300) U/L SARS-CoV-2 (PCR) Negative (Negative) Influenza A (RT-PCR) Flu a negative (NEGATIVE) Influenza B (RT-PCR) Flu b negative (NEGATIVE) RSV (PCR) Negative (Negative) Imaging Data Chest x-ray: Radiologist's Impression: PROCEDURE: XR CHEST 2V INDICATIONS: choked on vomit TECHNIQUE: 2 views of the chest were acquired. COMPARISON: [facility], CR, XR CHEST 2V, 05/03/2024, 16:31. [facility], CR, XR CHEST 1V, 09/03/2023, 15:14. FINDINGS: Surgical changes and devices: Cholecystectomy clips are faintly seen on the lateral view. Lungs and pleura: Lungs are clear. No focal infiltrates are seen. No pleural effusions or pneumothorax. Mediastinum: Mediastinal contours are normal. Heart size is normal. Bones and chest wall: No suspicious bony abnormalities. Soft tissues appear unremarkable. IMPRESSION: No focal infiltrates are seen. If there is strong clinical concern for developing aspiration pneumonia in this patient, please consider a short term followup examination, as aspiration pneumonia can have a delayed radiographic appearance. Dictated by: Anand Page M.D. on 08/29/2025 at 11:22 Approved by: Anand Page M.D. on 08/29/2025 at 11:23 [facility] Narrative Medical decision making narrative: 50 year old female with a past medical history of asthma, Crohn's disease, fibromyalgia, autism spectrum disorder who presents to the emergency department for nausea, vomiting, diarrhea, headache, cough, fever since yesterday. Differential diagnosis includes but is not limited to viral syndrome, gastroenteritis, COVID, flu, RSV, electrolyte derangement, dehydration, etc.. On exam the patient is in no acute distress, nontoxic appearing, vital signs. Abdomen is soft and nontender. Lungs clear to auscultation bilaterally however patient reports that she has had a subacute cough and did somewhat choke on her vomit earlier today just coming to the ED. We will obtain viral swab, CBC, CMP, chest x-ray, treat with migraine cocktail consisting of IV fluids, Benadryl, Compazine, acetaminophen. Viral swab negative. 1325: On reassessment of patient she feels much better, no more subsequent nausea or vomiting, headache resolved. We will p.o. challenge. I do suspect gastroenteritis at this time, discussed home hydration, Zofran, strict ER return precautions. Patient verbalized understanding all information is agreeable to the plan. She is ambulatory and stable for discharge home, she does have a ride home, all VS WNL. Discharge Plan Departure Patient Disposition: Home Clinical Impression: Nausea vomiting and diarrhea Instructions: DI for Vomiting -- Adult Activity Restrictions/Additional Instructions: Dear Ms. Monreal, Thank you for coming to the emergency department. I am very sorry that you are feeling sick. Today you were treated with what we call a migraine cocktail in the emergency department. I am glad that you are feeling much better. I have sent a prescription of Zofran to her pharmacy which is a nausea medicine. It is very important to focus on hydration, using water, Gatorade, Pedialyte or other electrolyte beverages. Please return to the emergency department if you develop severe pain, persistent vomiting, or any other concerns. You did test negative for COVID, flu a, flu B and RSV today. Please follow up with your primary care doctor within the next 2-3 days for ER follow-up. (If you do not have a PCP you can call [phone]. ?to schedule an appointment with an [facility] Primary Care Provider) IF YOU DEVELOP ANY NEW OR WORSENING SYMPTOMS, RETURN TO THE ER! Please read the attached instructions, they highlight more specific treatments and interventions for you at home. Thank you for letting me participate in your care, Enma Downs PA-C Prescriptions: New ondansetron 4 mg tablet,disintegrating 4 mg PO Q8H PRN (Reason: nausea and vomiting) Qty: 14 0RF No Action (DME) nebulizers [AeroEclipse XL Nebulizer] Misc See Rx Instructions .Route Qty: 1 0RF Rx Instructions: As directed albuterol sulfate 90 mcg/actuation HFA aerosol inhaler 2 puff inhalation Q4-6H PRN (Reason: shortness of breath or wheezing) Qty: 18 5RF Rx Instructions: please dispense with spacer Advair HFA 45-21 mcg/actuation HFA aerosol inhaler See Rx Instructions .ROUTE .COMPLEX Qty: 12 11RF Dose Instruction: INHALE 2 PUFFS INTO THE LUNGS TWICE DAILY FOR ASTHMA Rx Instructions: INHALE 2 PUFFS INTO THE LUNGS TWICE DAILY FOR ASTHMA fluticasone propionate [Flonase Allergy Relief] 50 mcg/actuation spray,suspension 1 spray NASAL DAILY Qty: 19.8 0RF Rx Instructions: administer into each nostril albuterol sulfate 2.5 mg /3 mL (0.083 %) solution for nebulization 2.5 mg inhalation Q4-6H PRN (Reason: shortness of breath or wheezing) Qty: 90 0RF Referrals: Saman Rainey DO [Primary Care Provider, Family Practice] Stand Alone Forms: Patient Portal/API
[2025-08-29 11:34] LABS: Add Manual Diff / Slide Review NO; Hematocrit 42.8 % (36-46); Hemoglobin 14.4 g/dL (12.0-16.0); Lymphocytes Absolute Auto 400 /uL (1100-4500); Mean Corpuscular HGB Conc 33.6 % (30-36); Mean Corpuscular Hemoglobin 30.6 PG (26-34); Mean Corpuscular Volume 91.0 fL (80-100); Platelet Count 240 X10^3/uL (150-400)
[2025-08-29 11:42] VITALS: BP 126/72; PULSE 91
[2025-08-29] MEDS: PROCHLORPERAZINE 10 MG/2 ML VIAL IV (11:42)
[2025-08-29] MEDS: diphenhydrAMINE 50 MG/ML VIAL 25 MG IV (11:43)
[2025-08-29] MEDS: SODIUM CHLORIDE 0.9% 1,000 ML 1000 ML IV (11:45)
[2025-08-29] MEDS: ACETAMINOPHEN IV 1,000 MG/100 ML VIAL 400 MG IV (11:45)
[2025-08-29 11:46] LABS: Alanine Aminotransferase 29 IU/L (<35); Albumin 4.9 g/dL (3.5-5.0); Albumin Globulin Ratio 1.4 (1.0-2.8); Alkaline Phosphatase 87 U/L (38-126); Blood Urea Nitrogen 15 mg/dL (7-17); Calcium 9.2 mg/dL (8.4-10.2); Carbon Dioxide 22 mmol/L (22-32); Chloride 103 mmol/L (98-107); Estimated Glomerular Filt Rate > 60 mL/min (>60); Globulin 3.6 g/dL (1.7-4.1); Glucose 163 mg/dL (70-99); HEMOLYSIS < 15 (0-50); Lipase 41 U/L (23-300); Potassium 3.9 mmol/L (3.4-5.1); Sodium 137 mmol/L (137-145); Total Protein 8.5 g/dL (6.3-8.2)
--- NOTE | 2025-08-29 12:22 | PC.NURSE ---
iv placed by another nurse
[2025-08-29 12:24] VITALS: BP 110/58; PULSE 91; RESP 18; O2SAT 99
[2025-08-29 13:03] LABS: COVID-19 CEPHEID 4-PLEX PCR Negative (Negative); Influenza A - CEPHEID Flu A NEGATIVE (NEGATIVE); Influenza B - CEPHEID Flu B NEGATIVE (NEGATIVE)
[2025-08-29 13:43] VITALS: BP 124/72; PULSE 80; RESP 17; O2SAT 97
== END 2025-08-29 13:44 | disposition home or self-care (01) ==
PROVIDERS: Emergency Provider Physician Assistant; PCP Family Medicine
DX: R11.2 Nausea with vomiting, unspecified (principal); R19.7 Diarrhea, unspecified; R05.2 Subacute cough
CPT/HCPCS: 71046; 80053; 83690; 85025; 87637; 96365; 96366; 96375; 99283; 99284; J0131; J0780; J1200; J7030

== ENCOUNTER → 2025-09-19 15:09 | Outpatient (CLI) | payer OTHER, SELFPAY ==
[2025-09-14 14:40] VITALS: BMI 36.6
--- NOTE | 2025-09-19 15:10 | DI.US.S_ITS ---
PROCEDURE: US HERNIA INDICATIONS: BILAT GROIN LUMPS TECHNIQUE: Real-time focused scanning was performed of the inguinal region, with image documentation. COMPARISON: None. FINDINGS AND IMPRESSION: At the areas of clinical concern in the groin, no fluid collection or discrete hernia is seen. Borderline enlarged lymph nodes seen bilaterally with thickened cortices and hyperemia, short axis diameter on the left measuring 0.9 cm with cortical thickness up to 9 mm. Short axis diameter on the right measuring 1.1 cm with cortical thickness up to 5 mm. These may represent reactive lymph nodes or malignant involvement. Consider sampling if there is no clinical explanation for reactive lymph nodes Dictated by: Petar Devine M.D. on 09/19/2025 at 17:23 Approved by: Petar Devine M.D. on 09/19/2025 at 17:25
== END ==
PROVIDERS: PCP Family Medicine; Referring Provider Nurse Practitioner Family; Visit Provider Nurse Practitioner Family
DX: R19.09 Other intra-abdominal and pelvic swelling, mass and lump (principal); R10.31 Right lower quadrant pain; R10.32 Left lower quadrant pain
CPT/HCPCS: 76705